=== PATIENT | male | born 1945 | race Caucasian/White ===

== ENCOUNTER 2024-04-29 16:35 | Emergency (ER) | payer MEDICARE, BC, OTHER, SELFPAY ==
[2024-04-29 16:36] VITALS: BMI 41.1
[2024-04-29 16:42] VITALS: BP 140/76
--- NOTE | 2024-04-29 16:46 | ED.GENMED ---
ED Provider Triage
<Stoney Salgado PA-C - Last Filed: 04/29/24 16:48>
-
Patient seen by provider in Triage?: Seen in Triage
Attestation: A medical screening examination has been initiated by a qualified medical provider. Based on the assessment performed at this time, it has been determined that an emergent medical condition may exist and the patient has been informed
that further medical evaluation and possible additional diagnostic testing may be needed.
HPI: 78-year-old male presenting to the ER with family who reports that patient has been having increased hallucinations over the last few days to weeks. Patient reports seeing worms at his living facility as well as on his body. Family notes that
patient has chronic diarrhea but is requesting a stool study be done as he has had worms in stool before. Patient is without any complaints at this time. Labs and stool study ordered. Will defer C. difficile study as patient's diarrhea is
chronic. No changes to medications or recent antibiotics
GENERAL: Alert , in no apparent distress
EYE: No visual abnormalities.
NECK: Trachea midline
ENT: No visible abnormalities.
LUNGS: No acute respiratory distress
NEUROLOGICAL: Alert and oriented
SKIN: Skin intact. No visible changes.
MUSCULOSKELETAL: Moving extremities normally
PSYCH: Normal and appropriate interaction.
This is a medical evaluation conducted in person to initiate diagnostic evaluation and provide initial therapeutics. Please see further documentation by the treating clinician.
History of Present Illness
<Stoney Salgado PA-C - Last Filed: 04/29/24 16:48>
General
Chief Complaint: Hallucinations
Time Seen by Provider: 04/29/24 19:21
<Nicola Lowry PA-C - Last Filed: 04/29/24 23:30>
History of Present Illness
History of Present Illness:
78-year-old male presents to the emergency department from [facility] for evaluation of suspected visual hallucinations. The patient has been seeing worms on his skin as well as throughout his nursing facility over the past 2 to 3 days. He
pointed some of these abnormalities out to his son who picked up the objects and reported that they were small fibers and/or paper. The patient provides quite significant explanations of what he is seeing and perseverates on the types of worms that
could be coming from his skin. No other residents have reported these hallucinations. He recently started on cephalexin for suspected bilateral lower extremity cellulitis but no other new meds have been started recently.
Past History
<Stoney Salgado PA-C - Last Filed: 04/29/24 16:48>
Past History
ED Past Medical History: CAD, GERD, HTN, Hypercholesterolemia, [place] and Other (sleep apnea, Pneumonia)
ED Past Surgical History: Cardiac (Stent LAD) and Cholecystectomy
Patient has exhibited threatening behavior?: No
PSI?: No
Social History
Tobacco: Non-smoker
Alcohol: None
Drug: None
Personal:
Living: alone
Employment: Employed
Family History
Family History: CAD
Review of Systems
<Nicola Lowry PA-C - Last Filed: 04/29/24 23:30>
Review of Systems
Allergies reviewed?: Yes
All Other Systems: ROS reviewed and negative except as documented in HPI and ROS
Phy Exam
<Nicola Lowry PA-C - Last Filed: 04/29/24 23:30>
Physical Exam
Physical Exam:
GEN: Well appearing, NAD, WDWN
HEENT: Oral mucosa moist, no scleral icterus
Cardiac: Regular rate and rhythm
Lung: No respiratory distress, no tachypnea
MSK: No gross deformity or injuries
Skin: Good color, no pallor or jaundice, circumferential erythema to bilateral lower extremities likely venous stasis dermatitis
Neuro: AO x3, moves all extremities freely
Psych: Calm, cooperative
Course
<Stoney Salgado PA-C - Last Filed: 04/29/24 16:48>
Orders/Labs/Results
Orders:
Orders
04/29/24 16:53
Complete Blood Count/With Diff Urgent
Comprehensive Metabolic Panel Urgent
04/29/24 18:55
Urinalysis Reflex To Culture Urgent
Date Specimen was Collected: 04/29/24
Time Specimen was Collected: 18:51
04/29/24 19:35
CT Head W/o Iv Contrast Urgent
Comment:
Reason For Exam: hallucinations
04/29/24 21:42
Ova & Parasites Giardia/Crypto AG [Giardia/Cryptosporidium Ag] Urgent
PAVEL Source: Feces/Stool
Specimen Description:
Date Specimen was Collected: 04/29/24
Time Specimen was Collected: 21:39
Abnormal Lab Results
04/29/24
16:53
MCHC 32.7 L g/dL
(33.0-37.0)
Absolute Lymphs (auto) 0.7 L 10^3/uL
(1.2-3.4)
Absolute Monos (auto) 0.7 H 10^3/uL
(0.1-0.6)
Lymphocytes % 10.8 L %
(20.5-51.1)
Monocytes % 10.5 H %
(1.7-9.3)
BUN 29 H mg/dl
(9-20)
Glucose 114 H mg/dl
(70-99)
04/29/24 16:53
04/29/24 16:53
Vital Signs
Initial and Last Documented VS:
Initial Vital Signs
Temp Pulse Resp BP Pulse Ox
97.9 F 87 16 140/76 100
04/29/24 16:42 04/29/24 16:42 04/29/24 16:42 04/29/24 16:42 04/29/24 16:42
Last Documented Vital Signs
Temp Pulse Resp BP Pulse Ox
97.9 F 87 16 141/68 99
04/29/24 16:42 04/29/24 16:42 04/29/24 16:42 04/29/24 22:38 04/29/24 22:45
<Nicola Lowry PA-C - Last Filed: 04/29/24 23:30>
Orders/Labs/Results
Orders:
Orders
04/29/24 16:53
Complete Blood Count/With Diff Urgent
Comprehensive Metabolic Panel Urgent
04/29/24 18:55
Urinalysis Reflex To Culture Urgent
Date Specimen was Collected: 04/29/24
Time Specimen was Collected: 18:51
04/29/24 19:35
CT Head W/o Iv Contrast Urgent
Comment:
Reason For Exam: hallucinations
04/29/24 21:42
Ova & Parasites Giardia/Crypto AG [Giardia/Cryptosporidium Ag] Urgent
PAVEL Source: Feces/Stool
Specimen Description:
Date Specimen was Collected: 04/29/24
Time Specimen was Collected: 21:39
Abnormal Lab Results
04/29/24
16:53
MCHC 32.7 L g/dL
(33.0-37.0)
Absolute Lymphs (auto) 0.7 L 10^3/uL
(1.2-3.4)
Absolute Monos (auto) 0.7 H 10^3/uL
(0.1-0.6)
Lymphocytes % 10.8 L %
(20.5-51.1)
Monocytes % 10.5 H %
(1.7-9.3)
BUN 29 H mg/dl
(9-20)
Glucose 114 H mg/dl
(70-99)
04/29/24 16:53
04/29/24 16:53
Vital Signs
Initial and Last Documented VS:
Initial Vital Signs
Temp Pulse Resp BP Pulse Ox
97.9 F 87 16 140/76 100
04/29/24 16:42 04/29/24 16:42 04/29/24 16:42 04/29/24 16:42 04/29/24 16:42
Last Documented Vital Signs
Temp Pulse Resp BP Pulse Ox
97.9 F 87 16 141/68 99
04/29/24 16:42 04/29/24 16:42 04/29/24 16:42 04/29/24 22:38 04/29/24 22:45
<Nicola Lowry PA-C - Last Filed: 04/29/24 23:30>
MDM/Problems Addressed
MDM/Problems Addressed:
Patient's hallucinations are likely behavioral related to cognitive decline. He is quite insistent that he has worms in his stool and he did provide a stool specimen that has no visible worms by inspection but will send for ova and parasite for
confirmation. Advised outpatient primary care follow-up to discuss medication therapy if symptoms worsen
<Nicola Lowry PA-C - Last Filed: 04/29/24 23:30>
*Critical Care Note
Total Time (30-74mins, 75-104mins- exclusive of procedures): Not Applicable
ED Attending Note
<Stoney Salgado PA-C - Last Filed: 04/29/24 16:48>
-
Portions of this chart may have been created with voice recognition software.� Occasional wrong word or��sound alike� substitutions may have occurred due to the inherent limitations of voice recognition software.
Discharge Plan
Departure
Patient Disposition: Home (Routine Discharge)
Date of Disposition: 04/29/24
Time of Disposition: 22:21
Patient with high blood pressure during this ER visit?: No
Discharge Problem:
Hallucination, visual
Prescriptions:
No Action
rosuvastatin 20 MG tablet
20 mg PO HS
sertraline 50 MG tablet
75 mg PO DAILY
ezetimibe 10 MG tablet
10 mg PO DAILY
ascorbic acid (vitamin C) [Vitamin C] 500 MG tablet
500 mg PO DAILY
triamcinolone acetonide 0.1 % Cream
1 applic TOPICAL BID PRN (Reason: irritation) Qty: 0
Rx Instructions:
apply to leg rash
omega 9-ohl-hma-fish oil [Fish Oil] 1,000 mg (120 mg-180 mg) Capsule
1 cap PO DAILY
multivitamin Tablet
1 tab PO DAILY
metoprolol succinate 100 mg Tablet Extended Release 24 Hr
100 mg PO DAILY
cholecalciferol (vitamin D3) [Vitamin D3] 50 mcg (2,000 unit) Capsule
50 mcg PO DAILY
vitamin E
180 mg PO DAILY
acetaminophen [Acetaminophen Extra Strength] 500 mg tablet
1,000 mg PO Q6H
aspirin 81 mg Tablet,Delayed Release (Dr/Ec)
81 mg PO DAILY
loperamide 2 mg Tablet
2 - 4 mg PO QID PRN (Reason: diarrhea)
potassium chloride 20 mEq tablet,ER particles/crystals
20 meq PO DAILY
furosemide 80 mg tablet
80 mg PO DAILY
Eucerin Cream
1 applic TOPICAL DAILY
Rx Instructions:
apply to legs
ondansetron 4 mg tablet,disintegrating
4 mg PO Q8H PRN (Reason: nausea and vomiting) Qty: 10 0RF
Referrals:
Sanjeev Whittington MD [Family Provider] -
Activity Restrictions/Additional Instructions:
Stool testing with result in 1-2 days
Contact your primary care doctor to discuss medications if symptoms worsen
Interventions
Interventions:
*Risk Screen - Suicide Last Done: 04/29/24 16:45
*General Assessment Last Done: 04/29/24 20:37
*Neglect/Abuse Screening Last Done: 04/29/24 16:45
*ED COVID-19 Vaccine History Last Done: 04/29/24 20:37
*Nursing Disposition Last Done: 04/29/24 23:07
ED- Neurological Assessment Last Done: 04/29/24 20:38
ED-Psychological Assessment Last Done: 04/29/24 20:38
ED-Suicide Risk Assessment Last Done: 04/29/24 20:38
Discharge Date and Time
Discharge Date/Time: 04/29/24 23:07
Print Language: PANAMANIAN
[2024-04-29 17:06] LABS: % Basophils 0.4 % (0-2); % Eosinophils 3.4 % (0-6); % Immature Granulocytes 0.1 % (0-0.5); % Lymphocytes 10.8 % (20.5-51.1); % Monocytes 10.5 % (1.7-9.3); % Neutrophils 74.8 % (42.2-75.2); Absolute Eosinophils 0.2 10^3/uL (0-0.7); Absolute Lymphocytes 0.7 10^3/uL (1.2-3.4); Absolute Monocytes 0.7 10^3/uL (0.1-0.6); Hematocrit 46.8 % (39.0-52.0); Hemoglobin 15.3 g/dL (13.0-18.0); Mean Corp Hgb Conc. 32.7 g/dL (33.0-37.0); Mean Corpuscular Hgb 28.7 pg (27.0-31.0); Mean Corpuscular Volume 87.8 fL (80.0-94.0); Nucleated Red Blood Cells % 0 % (-); Platelet Count 185 10^3/uL (130-400); Red Blood Cell Count 5.33 10^6/uL (4.70-6.10); Red Cell Dist. Width 13.2 % (11.5-14.5); White Blood Cell Count 6.7 10^3/uL (4.8-10.8)
[2024-04-29 17:16] LABS: ALT (SGPT) 37 U/L (0-50); AST (SGOT) 39 U/L (17-59); Albumin 4.2 g/dl (3.5-5.0); Alkaline Phosphatase 108 U/L (38-126); Blood Urea Nitrogen 29 mg/dl (9-20); Calcium 9.5 mg/dl (8.4-10.2); Carbon Dioxide 29 mmol/L (22-30); Chloride 103 mmol/L (98-107); Glucose 114 mg/dl (70-99); Potassium 4.3 mmol/L (3.5-5.1); Sodium 143 mmol/L (135-145); Total Bilirubin 0.3 mg/dl (0.2-1.3); Total Protein 7.1 g/dl (6.3-8.2); eGFR > 60.00
[2024-04-29 19:00] LABS: Urine Albumin Negative (Neg - Trace); Urine Bilirubin Negative (Negative); Urine Character Clear (Clear); Urine Color Yellow; Urine Glucose Negative (Negative); Urine Ketone Negative (Negative); Urine Leukocyte Negative (Negative); Urine Nitrite Negative (Negative); Urine Occult Blood Negative (Negative); Urine Specific Gravity 1.015 (<1.030); Urine Urobilinogen Negative (Neg - 1+)
[2024-04-29 20:36] VITALS: BP 118/52
[2024-04-29 21:00] VITALS: BP 139/62
[2024-04-29 22:38] VITALS: BP 141/68
== END 2024-04-29 23:07 | disposition home or self-care (01) ==
LOC: EMR 16:35
PROVIDERS: Physician Assistant Medical; EMERGENCY PHYSICIAN Student in an Organized Health Care Education/Training Program; FAMILY PHYSICIAN Internal Medicine
DX: R44.1 Visual hallucinations (principal); I25.10 Atherosclerotic heart disease of native coronary artery without angina pectoris; K21.9 Gastro-esophageal reflux disease without esophagitis; I10 Essential (primary) hypertension; E78.00 Pure hypercholesterolemia, unspecified; I25.2 Old myocardial infarction; G47.30 Sleep apnea, unspecified; Z82.49 Family history of ischemic heart disease and other diseases of the circulatory system; Z90.49 Acquired absence of other specified parts of digestive tract; Z95.5 Presence of coronary angioplasty implant and graft
CPT/HCPCS: 99284; 70450; 80053; 81003; 85025; 87328; 87329

== ENCOUNTER 2024-05-27 14:13 | Inpatient (IN) | payer MEDICARE, BC, OTHER, SELFPAY ==
[2024-05-27 08:58] VITALS: BP 150/76
--- NOTE | 2024-05-27 09:37 | PHANOTE ---
Addendum entered by Josi Mitchell 05/27/24 09:44:
receive fax from residential but pages 2,6,8,12,14,16 were blank pages.
Original Note:
[facility] not- called residential at [phone], for patient paperwork, patient transfer from doctor office to dher with just page 2 missing pages 1 and 3 gave fax number residential.
[2024-05-27 09:40] VITALS: BMI 41.0
[2024-05-27 09:52] LABS: % Basophils 0.3 % (0-2); % Eosinophils 1.5 % (0-6); % Immature Granulocytes 0.2 % (0-0.5); % Lymphocytes 13.3 % (20.5-51.1); % Monocytes 13.5 % (1.7-9.3); % Neutrophils 71.2 % (42.2-75.2); Absolute Eosinophils 0.1 10^3/uL (0-0.7); Absolute Lymphocytes 0.8 10^3/uL (1.2-3.4); Absolute Monocytes 0.8 10^3/uL (0.1-0.6); Absolute Neutrophils 4.3 10^3/uL (1.4-6.5); Hematocrit 43.2 % (39.0-52.0); Hemoglobin 14.7 g/dL (13.0-18.0); Mean Corpuscular Hgb 30.1 pg (27.0-31.0); Mean Corpuscular Volume 88.5 fL (80.0-94.0); Mean Platelet Volume 10.2 fL (7.4-10.4); Nucleated Red Blood Cells % 0 % (-); Platelet Count 183 10^3/uL (130-400); Red Blood Cell Count 4.88 10^6/uL (4.70-6.10); Red Cell Dist. Width 13.2 % (11.5-14.5)
[2024-05-27] MEDS: VANCOCIN 540 MG IV (10:04)
[2024-05-27 10:28] LABS: ALT (SGPT) 29 U/L (0-50); AST (SGOT) 44 U/L (17-59); Albumin 3.6 g/dl (3.5-5.0); Alkaline Phosphatase 73 U/L (38-126); Blood Urea Nitrogen 27 mg/dl (9-20); Calcium 9.2 mg/dl (8.4-10.2); Carbon Dioxide 27 mmol/L (22-30); Chloride 102 mmol/L (98-107); Estimated Creatinine Clearance 70 ml/min; Glucose 109 mg/dl (70-99); Potassium 3.6 mmol/L (3.5-5.1); Sodium 140 mmol/L (135-145); Total Bilirubin 0.7 mg/dl (0.2-1.3); Total Protein 6.5 g/dl (6.3-8.2); eGFR > 60.00
--- NOTE | 2024-05-27 10:31 | ED.GENMED ---
History of Present Illness
General
Chief Complaint: Skin Problem
Source: patient and family (daughter)
Exam Limitations: none
Time Seen by Provider: 05/27/24 09:13
History of Present Illness
History of Present Illness:
78-year-old male who presents from wound care for evaluation of cellulitis. The patient has recently been on Levaquin and prior to that was on a different antibiotic the family is unaware of. Patient does report progressive redness to the legs.
He does have lymphedema and is supposed to see a specialist. His right lower leg now has an open wound that is somewhat new as per the daughter. Patient denies fevers. He does report increasing swelling.
Past History
Past History
ED Past Medical History: CAD, GERD, HTN, Hypercholesterolemia, [place] and Other (sleep apnea, Pneumonia)
ED Past Surgical History: Cardiac (Stent LAD) and Cholecystectomy
Patient has exhibited threatening behavior?: No
PSI?: No
Social History
Tobacco: Non-smoker
Alcohol: None
Drug: None
Personal:
Living: alone
Employment: Employed
Family History
Family History: CAD
Phy Exam
Physical Exam
Physical Exam:
CONSTITUTIONAL Vital signs reviewed, Patient alert and oriented to person, place and time. Obese
HEAD atraumatic, normocephalic.
EYES eyelids normal to inspection, Extraocular muscles intact, Conjunctiva normal, Sclera normal.
NECK normal range of motion, Trachea midline, no jugular venous distention.
RESP no respiratory distress
BACK No obvious deformities
UPPER EXTREMITY Gross Range of motion normal, gross motor strength normal
LOWER EXTREMITY Gross range of motion normal, Gross motor strength normal, marked edema noted bilaterally with chronic venous stasis changes noted bilaterally. There is excoriation of the skin to the right lower extremity. There is a diffuse
redness from the toes almost to the hips bilaterally with increased warmth throughout the thigh bilaterally. There is no crepitus.
NEURO Speech normal, No focal motor deficits include, Jose A coma scale 15, Memory normal, Cranial Nerves intact to screening exam.
SKIN Skin warm, dry, and normal in color.
PSYCHIATRIC Patient oriented to person place and time, Normal affect.
Course
Orders/Labs/Results
Orders:
Orders
05/27/24 09:39
Complete Blood Count/With Diff Urgent
Blood Culture Q30M
PAVEL Source: Blood/Venous
Specimen Description:
05/27/24 09:49
Vancomycin [Vancocin] 2,000 mg 0.9% Sodium Chloride 500 ml [Nss] 500 ml IV NOW
05/27/24 10:01
Comprehensive Metabolic Panel Urgent
Blood Culture Q30M
PAVEL Source: Blood/Venous
Specimen Description:
Abnormal Lab Results
05/27/24 05/27/24
09:39 10:01
Absolute Lymphs (auto) 0.8 L 10^3/uL
(1.2-3.4)
Absolute Monos (auto) 0.8 H 10^3/uL
(0.1-0.6)
Lymphocytes % 13.3 L %
(20.5-51.1)
Monocytes % 13.5 H %
(1.7-9.3)
BUN 27 H mg/dl
(9-20)
Glucose 109 H mg/dl
(70-99)
05/27/24 09:39
05/27/24 10:01
Vital Signs
Initial and Last Documented VS:
Initial Vital Signs
Temp Pulse Resp BP Pulse Ox
99.0 F 71 18 150/76 96
05/27/24 08:58 05/27/24 08:58 05/27/24 08:58 05/27/24 08:58 05/27/24 08:58
Last Documented Vital Signs
Temp Pulse Resp BP Pulse Ox
99.0 F 71 18 150/76 96
05/27/24 08:58 05/27/24 08:58 05/27/24 08:58 05/27/24 08:58 05/27/24 08:58
MDM/Problems Addressed
MDM/Problems Addressed:
Acute severe cellulitis, chronic lymphedema, lower extremity wound, chronic obesity
*Pulse Oximetry
Patient hypoxic: no
*Critical Care Note
Total Time (30-74mins, 75-104mins- exclusive of procedures): Not Applicable
Data Reviewed
Source: patient and family
Prescriptions/Medications Considered But Not Given:
Considered gram-negative coverage but I suspect gram-positive coverage is sufficient given skin infection
Patient Management
Discussion with other providers: Hospitalist
Escalation/DeEscalation of care consider admission/obs:
Suspect cellulitis given the open wound as he has redness up through his thighs. There is a component of edema that may be contributing to the redness. Cover with IV antibiotics and admit. Patient has been on Levaquin as an outpatient
ED Attending Note
-
Portions of this chart may have been created with voice recognition software.� Occasional wrong word or��sound alike� substitutions may have occurred due to the inherent limitations of voice recognition software.
Discharge Plan
Departure
Patient Disposition: Admit
Date of Disposition: 05/27/24
Time of Disposition: 10:39
Admit to: Med/Surg
Presentation/result/management discussed w/ accepting MD/DO: Hospitalist
Discharge Problem:
Cellulitis, Lymphedema
Prescriptions:
No Action
rosuvastatin 20 MG tablet
20 mg PO DAILY
sertraline 50 MG tablet
75 mg PO DAILY
ezetimibe 10 MG tablet
10 mg PO DAILY
triamcinolone acetonide 0.1 % Cream
1 applic TOPICAL BID Qty: 0
Rx Instructions:
apply to leg rash
multivitamin Tablet
1 tab PO DAILY
metoprolol succinate 100 mg Tablet Extended Release 24 Hr
100 mg PO DAILY
cholecalciferol (vitamin D3) [Vitamin D3] 50 mcg (2,000 unit) Capsule
50 mcg PO DAILY
acetaminophen [Acetaminophen Extra Strength] 500 mg tablet
1,000 mg PO Q6H
aspirin 81 mg Tablet,Delayed Release (Dr/Ec)
81 mg PO DAILY
potassium chloride 20 mEq tablet,ER particles/crystals
20 meq PO DAILY
furosemide 80 mg tablet
80 mg PO UD
Rx Instructions:
take 80mg bid for 5 days then 80mg daily there after
omeprazole 40 mg Capsule,Delayed Release(Dr/Ec)
40 mg PO DAILY
Benefiber (guar gum) Packet
1 tbsp PO BID
gabapentin 300 mg Capsule
300 mg PO HS
levofloxacin 500 mg Tablet
500 mg PO DAILY
Rx Instructions:
for 10 days starting 05/23/24
Minerin Creme Cream
1 applic TOPICAL BID
ondansetron 4 mg tablet,disintegrating
8 mg PO Q8HPRN PRN (Reason: nausea)
Referrals:
Sanjeev Whittington MD [Family Provider] -
Interventions
Interventions:
*Risk Screen - Suicide Last Done: 05/27/24 08:58
*General Assessment Last Done: 05/27/24 08:58
*Neglect/Abuse Screening Last Done: 05/27/24 08:58
ED-Skin Assessment Last Done: 05/27/24 10:15
Discharge Date and Time
Print Language: LAO
--- NOTE | 2024-05-27 13:57 | HPS.HSE ---
Family Physician
-
Family Physician: Henrry Whittington
Chief Complaint
-
Leg wound
History of Present Illness
78-year-old male extensive past medical history presenting from wound care center here with right lower extremity worsening wound. Patient was being treated with Levaquin as outpatient via primary doctor. Patient form [facility]. Per the
paperwork, patient was on Keflex prior to Levaquin. Patient does states progressive erythema worsen bilateral lower extremity worse on the right lower leg. Stated erythema has gotten worse in the last 2 weeks. Patient denies any fevers or
chills. Patient does state [facility]. No family member at bedside. In the ER patient with WBC count of 6 and stable hemoglobin of 14.7. BMP with creatinine 1.2. Received 2 g of vancomycin. On further discussion with
patient daughter over the phone. Patient with chronic lymphedema. However recently right lower extremity wound has gotten worse. Patient was seen earlier at the wound care center and was recommended come into the ER for antibiotics and wound
management.
Medical History
Past Medical History
Past Medical History: Reports Other
Additional Past Medical History:
CAD
Primary hypertension
Hyperlipidemia
Chronic bilateral lower extremity stasis/lymphedema
Mood disorder
Suspected cognitive disorder/suspected dementia
Urinary incontinence
GERD
CKD stage IIIa
Past Surgical History: Reports Cardiac (LAD stent), Cholecystectomy and Orthopedic (Total replacement of left shoulder)
Social History
Unable to obtain full social history at this time due to: Dementia
Family History
Family History: Not pertinent
Allergies / Home Medications
Allergies reflects when Allergies were last updated in [employer].
Home Medications with original date entered in [employer]
Allergy/Medication List:
Allergies
Allergy/AdvReac Type Severity Reaction Status Date / Time
lisinopril Allergy Rash Verified 05/27/24 08:58
orange juice [Limestone Juice] Allergy Rash Verified 05/27/24 08:58
Home Medications
rosuvastatin 20 mg tablet 20 mg PO DAILY High cholesterol 05/19/13
ezetimibe 10 mg tablet 10 mg PO DAILY High cholesterol 11/23/20
sertraline 50 mg tablet 75 mg PO DAILY mental health 11/23/20
triamcinolone acetonide 0.1 % topical cream 1 applic topical BID lower extremites ##0 02/28/22
acetaminophen 500 mg tablet (Acetaminophen Extra Strength) 1,000 mg PO Q6H Supplement 04/18/22
aspirin 81 mg tablet,delayed release 81 mg PO DAILY Blood clot prevention/tx 04/18/22
cholecalciferol (vitamin D3) 50 mcg (2,000 unit) capsule (Vitamin D3) 50 mcg PO DAILY Supplement 04/18/22
metoprolol succinate 100 mg tablet,extended release 24 hr 100 mg PO DAILY Blood pressure 04/18/22
multivitamin 1 tab PO DAILY Supplement 04/18/22
furosemide 80 mg tablet 80 mg PO UD 01/09/23
potassium chloride 20 mEq tablet,extended release(part/cryst) 20 meq PO DAILY 01/09/23
gabapentin 300 mg capsule 300 mg PO HS 05/27/24
guar gum 1 tbsp PO BID 05/27/24
lanolin alcohols-mineral oil-w.petrolatum-ceresin topical cream (Minerin Creme topical) 1 applic topical BID b/l lower legs 05/27/24
levofloxacin 500 mg tablet 500 mg PO DAILY 05/27/24
omeprazole 40 mg capsule,delayed release 40 mg PO DAILY 05/27/24
ondansetron 4 mg disintegrating tablet 8 mg PO Q8HPRN PRN nausea 05/27/24
Review of Systems
-
Unable to obtain full review of systems at this time due to: Dementia
Physical Exam
Vital Signs
Vital Signs
Temp Pulse Resp BP Pulse Ox
99.0 F 71 18 150/76 96
05/27/24 08:58 05/27/24 08:58 05/27/24 08:58 05/27/24 08:58 05/27/24 08:58
Physical Exam
General: Well Developed, Well Nourished and No Apparent Distress
HEENT: NormoCephalic, Moist mucous membranes and Atraumatic
Respiratory: Clear
Cardiac: S1/S2 and Regular Rhythm; No Murmur or Rub
GI: Soft, Non Tender, Non Distended and Normal Bowel Sounds; No Organomegaly
Rectal: Deferred by Provider
Musculoskeletal: No Clubbing, No Cyanosis, Edema, Left Lower Extremity and Edema, Right Lower Extremity (Open venous stasis wound with drainage severe erythema)
Skin: No Rash
Neuro: Awake and Nonfocal/grossly intact
Psych: Calm and Apparent Dementia
Laboratory Results
-
05/27/24 09:39
05/27/24 10:01
Laboratory Results
Total Bilirubin 0.7 mg/dl (0.2-1.3) 05/27/24 10:01
AST 44 U/L (17-59) 05/27/24 10:01
ALT 29 U/L (0-50) 05/27/24 10:01
Alkaline Phosphatase 73 U/L (38-126) 05/27/24 10:01
Impression/Plan
-
#Bilateral lower extremity venous stasis/lymphedema
#Suspected right lower extremity cellulitis
Check lower extremity venous Doppler
Start patient on IV Keflex
Start patient on IV 60 mg of Lasix to reduce edema which should help alleviate suspected infection
Await blood culture results
Will ask ID for input
#Primary hypertension
Continue with metoprolol
On IV diuretics
#Hyperlipidemia
Continue with statin
#CAD status post stent
Continue with aspirin and statin and beta-hardeep
#Morbid obesity due to excess calories
Suspected Cognitive impairment
ADHD
Mood disorder
Continue sertraline
DVT prophylaxis Lovenox
Full code
update daughter over the phone in details
I spent a total of 78 minutes with the patient or on the floor. More than 50% of this time involved counseling and coordination of care.
[2024-05-27 14:17] VITALS: BP 117/74
--- NOTE | 2024-05-27 15:50 | WOUNDNOTE ---
[facility] (L ANTERIOR LATERAL; R MEDIAL)
--- NOTE | 2024-05-27 15:50 | WOUNDNOTE ---
RLE (WITH PHOTO FLASH)
--- NOTE | 2024-05-27 15:51 | WOUNDNOTE ---
[facility] RN note: Patient admitted with cellulitis, venous stasis.
See H&P for complete history.
PMH: lymphedema, CAD, HTN, [place], sleep apnea, cardiac stent, cholecystectomy, obesity, leg wounds.
Wound Location and type/assessment: Patient admitted with: dermal RLE venous stasis wounds. +LE edema and diffuse erythema Le's (R>L). Stage 2 L medial buttocks pressure injuries. +3 RLE edema, +2LLE edema. +Pedal pulses.
Appetite: good.
Pressure redistribution devices in place: [employer] Accumax. Patient ambulates with supervision.
Plan: RLE dressing applied with help from RN
Will confirm orders with hospitalist and update nurse.
Updated care plan and will follow as needed.
Note to case management of equipment requested for discharge:
Recommend follow up at wound care center upon discharge.
--- NOTE | 2024-05-27 16:00 | WOUNDNOTE ---
[facility] RN note: Patient admitted with cellulitis, venous stasis. Patient lives at [facility] (personal care?). Son with patient. Patient sent to ED today from [facility].
See H&P for complete history.
PMH: lymphedema, CAD, HTN, [place], sleep apnea, cardiac stent, cholecystectomy, obesity, leg wounds.
Wound Location and type/assessment: Patient admitted with: dermal RLE venous stasis wounds almost circumferential. +LE edema and diffuse erythema Le's (R>L). Stage 2 L medial buttocks pressure injuries. +3 RLE edema, +2LLE edema. +Palpable pedal
pulses.
Appetite: good.
Pressure redistribution devices in place: [employer] Accumax. Patient ambulates with supervision. He turns with assistance in bed.
Plan: RLE dressing and knee high Chaim wrap and size G tubigrips applied, bariatric air chair cushion placed under patient's buttocks with help from RN Walker. Heels off bed with pillows. Instructed patient pressure injury prevention measures.
Confirmed orders including knee high compression with Dr. Sterling. Defer to physician if LE venous Doppler indicated.
Updated care plan and will follow as needed.
Note to case management requested for discharge: VN if returns to assisted living when discharged.
Recommend follow up at wound care center upon discharge.
[2024-05-27 16:18] VITALS: BP 114/77
[2024-05-27] MEDS: TYLENOL 1000 MG PO ×2 (16:42→21:25)
[2024-05-27] MEDS: ANCEF 10 IV (16:43)
[2024-05-27] MEDS: LOVENOX 40 MG SC (18:37)
[2024-05-27] MEDS: NEURONTIN 300 MG PO (21:28)
[2024-05-27 23:00] VITALS: BP 111/52
[2024-05-28] MEDS: ANCEF 10 IV ×4 (00:32→23:24)
[2024-05-28] MEDS: FLUSH (NSS) 1 FLUSH IV ×2 (00:32→23:25)
[2024-05-28 03:25] VITALS: BMI 40.7
[2024-05-28] MEDS: TYLENOL 1000 MG PO ×4 (04:30→21:35)
[2024-05-28 07:02] LABS: Blood Urea Nitrogen 24 mg/dl (9-20); Calcium 8.9 mg/dl (8.4-10.2); Carbon Dioxide 27 mmol/L (22-30); Chloride 104 mmol/L (98-107); Estimated Creatinine Clearance 83 ml/min; Glucose 113 mg/dl (70-99); Potassium 3.6 mmol/L (3.5-5.1); Sodium 141 mmol/L (135-145); eGFR > 60.00
[2024-05-28 07:10] VITALS: BP 126/64
[2024-05-28] MEDS: LASIX 60 MG IV (08:44)
[2024-05-28] MEDS: ZOLOFT 75 MG PO (08:46)
[2024-05-28] MEDS: PROTONIX 40 MG PO (08:47)
[2024-05-28] MEDS: ASPIR LOW (ENTERIC COATED) 81 MG PO (08:48)
[2024-05-28] MEDS: VITAMIN D3 (cholecalciferol) 50 MCG PO (08:48)
[2024-05-28] MEDS: ZETIA 10 MG PO (08:48)
[2024-05-28] MEDS: TOPROL XL 100 MG PO (08:48)
[2024-05-28] MEDS: KCL 20 MEQ PO (08:49)
[2024-05-28] MEDS: THERAGRAN 1 TABLET PO (08:49)
[2024-05-28] MEDS: CRESTOR 20 MG PO (08:49)
[2024-05-28] MEDS: HYDROPHOR 1 APPLIC TOPICAL (08:50)
--- NOTE | 2024-05-28 12:21 | W.PN.HOSP.TC ---
Today's Communication/Plan
-
IV lasix
IV abx
wound care
ID eval
elevated LE
Consider TTE if here on thursday
Assessment / Plan
Assessment / Plan
General: Well Developed, Well Nourished and No Apparent Distress
HEENT: NormoCephalic, Moist mucous membranes and Atraumatic
Respiratory: Clear
Cardiac: S1/S2 and Regular Rhythm; No Murmur or Rub
GI: Soft, Non Tender, Non Distended and Normal Bowel Sounds; No Organomegaly
Rectal: Deferred by Provider
Musculoskeletal: No Clubbing, No Cyanosis, Edema, Left Lower Extremity and Edema, Right Lower Extremity (Open venous stasis wound with drainage severe erythema)
Skin: No Rash
Neuro: Awake and Nonfocal/grossly intact
Psych: Calm and Apparent Dementia
#Bilateral lower extremity venous stasis/lymphedema
#Suspected right lower extremity cellulitis with failed OP antibiotics
Check lower extremity venous Doppler-negative
Started patient on IV Keflex
Started patient on IV 60 mg of Lasix to reduce edema which should help alleviate suspected infection
Await blood culture results
ID eval
#Primary hypertension
Continue with metoprolol
On IV diuretics
#CKD unknown stage
-trend cr with diuretics
#Hyperlipidemia
Continue with statin
#CAD status post stent
Continue with aspirin and statin and beta-hardeep
#Morbid obesity due to excess calories
Suspected Cognitive impairment
ADHD
Mood disorder
Continue sertraline
DVT prophylaxis Lovenox
Full code
update daughter over the phone in details on admission
Anticipated Discharge: > 48 hours
Subjective/Interval History
-
Date of Service: May 28, 2024
More talkative today
Edema improving slowly
Objective Data
-
Labs:
Laboratory Results
05/28/24
06:29
Sodium 141
Potassium 3.6
Chloride 104
Carbon Dioxide 27
BUN 24 H
Creatinine 1.0
Glucose 113 H
Calcium 8.9
Vital Signs:
Vital Signs
Temp Pulse Resp BP Pulse Ox
97.7 F 78 16 126/64 95
05/28/24 07:10 05/28/24 07:10 05/28/24 07:10 05/28/24 07:10 05/28/24 07:10
I&O
05/27/24 05/28/24 05/29/24
06:59 06:59 06:59
Intake Total 120 / 120
Balance 120 / 120
--- NOTE | 2024-05-28 14:15 | CON.ID ---
Consultation
-
Date/Time Consultation Requested: 05/27/24 15:22
Date/Time Consultation Performed: 05/28/24 14:17
Requesting Provider: Dr Murillo
Performing Provider: Dr Sterling
Reason for Consultation: Cellulitis
Chief Complaint / Past History
Chief Complaint
cellulitis
History of Present Illness
Mr Zimmer is a 78 year old male with history of chronic lymphedema of the bilateral lower extremities, class III obesity who presented here yesterday for increasing erythema and pain of the Right lower extremity in particular. Patient has chronic,
uncontrolled lymphedema and a superficial erosion of the R distal leg. He was initially prescribed keflex without improvement, then levaquin, then referred here. He is taking lasix. NO fevers or chills.
Since arrival here he has been afebrile, bp stable, wbc 6, hgb 14, plt 183, no L shift, cr 1.2 now 1.0, 05/27 vascular US: no dvt, started on cefazolin, wound care and compression. ID is consulted for assistance with management.
Past History
Additional Past Medical History:
CAD
Primary hypertension
Hyperlipidemia
Chronic bilateral lower extremity stasis/lymphedema
Mood disorder
Suspected cognitive disorder/suspected dementia
Urinary incontinence
GERD
CKD stage IIIa
Additional Past Surgical History:
Reports Cardiac (LAD stent), Cholecystectomy and Orthopedic (Total replacement of left shoulder)
Allergy History:
lisinopril Allergy (Verified 05/27/24 08:58)
Rash
orange juice [[place] Juice] Allergy (Verified 05/27/24 08:58)
Rash
Medications Reviewed: Yes
Social History
Personal: Single
Living: Assisted Living
Employment: Not Employed
Family History
Family History: Not Pertinent
Review of Systems
Review of Systems
General: Negative Fever or Chills
All systems: All other systems were reviewed and were negative
Vital Signs
Temp Pulse Resp BP Pulse Ox
97.7 F 78 16 126/64 95
05/28/24 07:10 05/28/24 07:10 05/28/24 07:10 05/28/24 07:10 05/28/24 07:10
Physical Exam
Physical Exam
Constitutional: No Acute Distress
Cardiovascular: Regular Rate and S1/S2; Negative Murmur or Rub
Pulmonary: Clear and Symmetric; Negative Wheezes, Rales or Rhonchi
Gastrointestinal: Soft, Non Tender, Non Distended and Normal Bowel Sounds
Extremities: Other (bilateral lower extremity chronic lichenification; wound of the distal RLE superficial - nonpurulent)
Skin: Warm and Dry; Negative Rash or Jaundice
Lab / Diagnostic Study Results
05/27/24 09:39
05/28/24 06:29
Abs Immat Gran (auto) 0.0 10^3/uL (0-0.05) 05/27/24 09:39
Absolute Neuts (auto) 4.3 10^3/uL (1.4-6.5) 05/27/24 09:39
Absolute Lymphs (auto) 0.8 10^3/uL (1.2-3.4) L 05/27/24 09:39
Absolute Monos (auto) 0.8 10^3/uL (0.1-0.6) H 05/27/24 09:39
Absolute Basos (auto) 0.0 10^3/uL (0-0.2) 05/27/24 09:39
Immature Gran % 0.2 % (0-0.5) 05/27/24 09:39
Neutrophils % 71.2 % (42.2-75.2) 05/27/24 09:39
Lymphocytes % 13.3 % (20.5-51.1) L 05/27/24 09:39
Monocytes % 13.5 % (1.7-9.3) H 05/27/24 09:39
Eosinophils % 1.5 % (0-6) 05/27/24 09:39
Basophils % 0.3 % (0-2) 05/27/24 09:39
Microbiology Results
Micro:
05/27/24 10:01 Blood Culture - Preliminary
Blood/Venous No Growth in 24 hours- Final report to follow
05/27/24 09:39 Blood Culture - Preliminary
Blood/Venous No Growth in 24 hours- Final report to follow
05/27/24 18:25 MRSA Screen - Pending
Nose
Assessment / Plan
Nonpurulent Cellulitis
Chronic Venous stasis dermatitis
Chronic uncontrolled lymphedema
Class III Obesity
- blood cultures x2 in progress
- mrsa screen in progress
- agree with cefazolin, increased dose to 2 gm IV q6 hours given BMI >40
- compression and elevation while awake and not eating - as important as the antibiotics
follow clinically
[2024-05-28 15:16] VITALS: BP 133/65
[2024-05-28] MEDS: LOVENOX 40 MG SC (17:01)
[2024-05-28] MEDS: NEURONTIN 300 MG PO (21:35)
[2024-05-28 23:24] VITALS: BP 133/57
[2024-05-29] MEDS: TYLENOL 1000 MG PO ×4 (05:33→22:52)
[2024-05-29] MEDS: ANCEF 10 IV ×4 (05:33→22:52)
[2024-05-29] MEDS: FLUSH (NSS) 1 FLUSH IV (05:34)
[2024-05-29 06:00] VITALS: BMI 39.4
[2024-05-29 07:22] LABS: Blood Urea Nitrogen 24 mg/dl (9-20); Calcium 8.8 mg/dl (8.4-10.2); Carbon Dioxide 26 mmol/L (22-30); Chloride 104 mmol/L (98-107); Estimated Creatinine Clearance 91 ml/min; Glucose 108 mg/dl (70-99); Potassium 3.9 mmol/L (3.5-5.1); Sodium 143 mmol/L (135-145); eGFR > 60.00
[2024-05-29 07:50] VITALS: BP 142/74
[2024-05-29] MEDS: ASPIR LOW (ENTERIC COATED) 81 MG PO (09:29)
[2024-05-29] MEDS: PROTONIX 40 MG PO (09:29)
[2024-05-29] MEDS: KCL 20 MEQ PO (09:30)
[2024-05-29] MEDS: ZOLOFT 75 MG PO (09:30)
[2024-05-29] MEDS: ZETIA 10 MG PO (09:32)
--- NOTE | 2024-05-29 10:23 | W.PN.HOSP.TC ---
Today's Communication/Plan
-
IV lasix
IV abx
ECHO in am
wound care
elevate LE
Assessment / Plan
Assessment / Plan
General: Well Developed, Well Nourished and No Apparent Distress
HEENT: NormoCephalic, Moist mucous membranes and Atraumatic
Respiratory: Clear
Cardiac: S1/S2 and Regular Rhythm; No Murmur or Rub
GI: Soft, Non Tender, Non Distended and Normal Bowel Sounds; No Organomegaly
Rectal: Deferred by Provider
Musculoskeletal: No Clubbing, No Cyanosis, Edema, Left Lower Extremity and Edema, Right Lower Extremity (Open venous stasis wound with drainage severe erythema)
Skin: No Rash
Neuro: Awake and Nonfocal/grossly intact
Psych: Calm and Apparent Dementia
#Bilateral lower extremity venous stasis/lymphedema
#Suspected right lower extremity cellulitis with failed OP antibiotics
Check lower extremity venous Doppler-negative
Started patient on IV Keflex and dose adjusted per ID. MRSA positive
Started patient on IV 60 mg of Lasix to reduce edema-improving. losing weight.
Await blood culture results-negative so far
wound care and leg elevation as much as possible
ID eval
#Chronic lyphmedema with signfiicant swelling
-Check ECHO in am
#Primary hypertension
Continue with metoprolol
On IV diuretics
#CKD unknown stage
-trend cr with diuretics
#Hyperlipidemia
Continue with statin
#CAD status post stent
Continue with aspirin and statin and beta-hardeep
#Morbid obesity due to excess calories
Suspected Cognitive impairment
ADHD
Mood disorder
Continue sertraline
DVT prophylaxis Lovenox
Full code
Anticipated Discharge: > 48 hours
Subjective/Interval History
-
Date of Service: May 29, 2024
improvement in edema
Objective Data
-
Labs:
Laboratory Results
05/29/24
06:19
Sodium 143
Potassium 3.9
Chloride 104
Carbon Dioxide 26
BUN 24 H
Creatinine 0.9
Glucose 108 H
Calcium 8.8
Vital Signs:
Vital Signs
Temp Pulse Resp BP Pulse Ox
98.2 F 76 16 142/74 96
05/29/24 07:50 05/29/24 07:50 05/29/24 07:50 05/29/24 07:50 05/29/24 07:50
I&O
05/28/24 05/29/24 05/30/24
06:59 06:59 06:59
Intake Total 120 / 120 600 / 600
Balance 120 / 120 600 / 600
Data Reviewed
-
Total Time Spent with Patient (in minutes): 55
[2024-05-29] MEDS: THERAGRAN 1 TABLET PO (10:28)
[2024-05-29] MEDS: LASIX 60 MG IV (10:28)
[2024-05-29] MEDS: CRESTOR 20 MG PO (10:28)
[2024-05-29] MEDS: TOPROL XL 100 MG PO (10:28)
[2024-05-29] MEDS: VITAMIN D3 (cholecalciferol) 50 MCG PO (10:28)
[2024-05-29] MEDS: HYDROPHOR 1 APPLIC TOPICAL (10:29)
--- NOTE | 2024-05-29 14:06 | CM ---
Cm spoke with nursing staff at the [facility] at [facility]
Pt is a an [facility] resident and typically AxO 3x with occasional pleasant confusion
Pt typically ambulates short distances with a WW in his room
He transfers independently and able to self propel his WC for longer distances with use of feet
Pt is able to perform personal care tasks independently
Staff notes he is easily distracted and pre-occupied by his phone
He requires cueing and prompting to follow through with tasks as he is easily distracted
Pt current with [facility] for wound care
PCP- Sanjeev Whittington
Rx- [facility]
PT/OT requested
per [facility], can return as a 1 person assist
If 2 or more, may require higher level of care
Discharge Disposition- return to the [facility] with [facility], watch for possible higher needs
[2024-05-29 15:00] VITALS: BP 121/69
[2024-05-29] MEDS: LOVENOX 40 MG SC (18:20)
[2024-05-29] MEDS: NEURONTIN 300 MG PO (22:52)
[2024-05-29 23:00] VITALS: BP 127/61
[2024-05-29 23:30] VITALS: BP 127/61
[2024-05-30] MEDS: TYLENOL PO ×2 (04:15→16:11)
[2024-05-30] MEDS: ANCEF 10 IV ×3 (05:08→20:15)
[2024-05-30 06:00] VITALS: BMI 38.9
[2024-05-30 07:27] VITALS: BP 131/70
[2024-05-30] MEDS: LASIX 60 MG IV (07:37)
[2024-05-30] MEDS: THERAGRAN 1 TABLET PO (07:39)
[2024-05-30] MEDS: TOPROL XL 100 MG PO (07:39)
[2024-05-30] MEDS: VITAMIN D3 (cholecalciferol) 50 MCG PO (07:39)
[2024-05-30] MEDS: ZOLOFT 75 MG PO (07:39)
[2024-05-30] MEDS: ASPIR LOW (ENTERIC COATED) 81 MG PO (07:40)
[2024-05-30] MEDS: CRESTOR 20 MG PO (07:40)
[2024-05-30] MEDS: PROTONIX 40 MG PO (07:40)
[2024-05-30] MEDS: KCL 20 MEQ PO (07:40)
[2024-05-30] MEDS: ZETIA 10 MG PO (07:40)
[2024-05-30] MEDS: HYDROPHOR 1 APPLIC TOPICAL (07:41)
[2024-05-30 08:45] VITALS: BP 113/63; PULSE 60; O2SAT 93
[2024-05-30 09:00] VITALS: BP 113/69; PULSE 65; O2SAT 94
[2024-05-30 09:04] LABS: Blood Urea Nitrogen 23 mg/dl (9-20); Carbon Dioxide 27 mmol/L (22-30); Chloride 105 mmol/L (98-107); Estimated Creatinine Clearance 90 ml/min; Glucose 96 mg/dl (70-99); Potassium 3.8 mmol/L (3.5-5.1); Sodium 140 mmol/L (135-145); eGFR > 60.00
[2024-05-30] MEDS: TYLENOL 1000 MG PO ×2 (09:44→21:08)
--- NOTE | 2024-05-30 10:48 | CM ---
CM reviewed chart, spoke with nurse Perez from [facility], reviewed PT notes with nurse, will fax to [facility] at [phone]. Per Chris, will be able to accept patient back to [facility] at current level. Nurse reports patient is current with
[facility] for wound care, will update [facility] on patient status. Nurse Perez feels patient may benefit from higher level of care for wound care needs, however, can accept patient back at current level. Patient seen bedside, reports no
concerns to CM at this time. CM will continue to follow for all discharge planning needs.
Plan; return to [facility] with [facility], watch for higher level of care recommendation.
[facility]
--- NOTE | 2024-05-30 12:42 | W.PN.HOSP.TC ---
Today's Communication/Plan
-
Continue with IV cefazolin for cellulitis
Continue with IV Lasix for lower extremity edema
Follow-up TTE
Assessment / Plan
Assessment / Plan
#Bilateral lower extremity venous stasis/lymphedema
#RLE nonpurulent cellulitis
-Lower extremity venous ultrasound negative for DVTs
-Failed outpatient course of cephalexin, likely with associated edema
-Now on IV cefazolin 2 g every 6 hours, ID following
-Currently on Lasix for improvement of lower extremity
-Will continue with IV cefazolin and Lasix for now
-Follow-up blood cultures, trend CBC and temperature
#Chronic lymphedema
-Follow-up TTE today
-Likely related to chronic venous insufficiency
-Encourage leg elevation, compression stockings
-IV Lasix as above for now
#Primary hypertension
-No known history of hypertensive systemic disease
-As home medications include metoprolol, Lasix
-Blood pressure currently stable
#CKD 3
-Per documentation, baseline creatinine likely near 0.9
-No known association with anemia, acidemia, bone mineral disease
-Trend BMP while on IV Lasix as well above
#CAD s/p PCI
#HLD
-Home medications include high intensity statin, aspirin, beta
-Has drug-eluting stent placed in LAD
-No signs of ACS
#Morbid obesity due to excess calories
-Has lost weight here, BMI now below 40
#Suspected Cognitive impairment
#ADHD
#Mood disorder
-Continue sertraline
DVT prophylaxis: Lovenox
Diet: Low cholesterol
CODE STATUS: Full code
Anticipated Discharge: 24 - 48 hours
Subjective/Interval History
-
Date of Service: May 30, 2024
Seen and examined the bedside. No acute interval overnight. AFVSS this morning
He still has some tenderness to palpation of the right lower extremity at the site of his cellulitis.
Denies acute complaints including chest pain, dyspnea or chills, GI issues, urinary, bleeding or bruising, paresthesias or weakness
Objective Data
-
Labs:
Laboratory Results
05/30/24
07:54
Sodium 140
Potassium 3.8
Chloride 105
Carbon Dioxide 27
BUN 23 H
Creatinine 0.9
Glucose 96
Calcium 9.0
Vital Signs:
Vital Signs
Temp Pulse Resp BP Pulse Ox
98.1 F 66 18 131/71 95
05/30/24 07:27 05/30/24 07:27 05/30/24 07:27 05/30/24 07:37 05/30/24 07:27
I&O
05/29/24 05/30/24 05/31/24
06:59 06:59 06:59
Intake Total 600 / 600 887 / 887
Balance 600 / 600 887 / 887
Review of Systems
-
History Source: Patient
All other systems: Reviewed and negative
Physical Exam
-
General: No Apparent Distress, Comfortable and Obese
HEENT: Normocephalic, Atraumatic and Moist Mucous Membranes
Respiratory: Clear to Auscultation and Non Labored Respirations
Cardiac: Regular Rhythm and S1/S2; Negative Murmur, Rub or Gallop
GI: Soft, Nontender, Nondistended and Normal Bowel Sounds
Musculoskeletal: No Clubbing, No Cyanosis and No Edema
Skin: Warm, Dry, Normal Turgor and Other (Warm, erythematous area on right lower extremity without purulent)
Neuro: AO x 3, Nonfocal/Grossly Intact and Central Nerve's Intact
Psych: Calm
Data Reviewed
-
Labs: Labs Reviewed by me and Discussed with Patient
[2024-05-30 15:21] VITALS: BP 124/64
[2024-05-30] MEDS: LOVENOX 40 MG SC (17:06)
--- NOTE | 2024-05-30 17:34 | W.PN.ID1 ---
Date of Service
Date of Service: May 30, 2024
Today's Communication
- agree with cefazolin, dose 2 gm iv q8 hours given declining BMI with lasix, switch to oral in the AM for 5 more days
- referral to lymphedema center on dc
Assessment / Plan
Nonpurulent Cellulitis
Chronic Venous stasis dermatitis
Chronic uncontrolled lymphedema
Class III Obesity
- blood cultures x2 in progress
- mrsa screen in progress
- agree with cefazolin, dose 2 gm iv q8 hours given declining BMI with lasix, switch to oral in the AM for 5 more days
- compression and elevation while awake and not eating - as important as the antibiotics
- SCDs
- follow up in lymphedema clinic
Chief Complaint
-: Cellulitis
Subjective / Review of Systems
afebrile
bp stable
BMI down to 38.9 with lasix
markedly improved erythema - there is hemosiderin deposition
Vital Signs / Physical Exam
Vital Signs
Vital Signs
Temp Pulse Resp BP Pulse Ox
97.8 F 66 20 124/64 100
05/30/24 15:21 05/30/24 15:21 05/30/24 15:21 05/30/24 15:21 05/30/24 15:21
Physical Exam
Constitutional: No Acute Distress
Cardiovascular: Regular Rate and S1/S2; Negative Murmur or Rub
Pulmonary: Clear and Symmetric; Negative Wheezes or Rales
Gastrointestinal: Soft, Non Tender, Non Distended and Normal Bowel Sounds
Skin: Warm, Dry and Rash (markedly improved swelling of the bilateral legs, there is hemosiderin deposition however blanching cellulitis resolved); Negative Jaundice
Objective Data
Lab Data
Lab Results
05/27/24 09:39
05/30/24 07:54
Estimated Creat Clear 90 ml/min 05/30/24 07:54
Total Bilirubin 0.7 mg/dl (0.2-1.3) 05/27/24 10:01
AST 44 U/L (17-59) 05/27/24 10:01
ALT 29 U/L (0-50) 05/27/24 10:01
Alkaline Phosphatase 73 U/L (38-126) 05/27/24 10:01
Most recent labs reviewed.
Micro Results:
05/27/24 10:01 Blood Culture - Preliminary
Blood/Venous No Growth in 72 hours- Final report to follow
05/27/24 09:39 Blood Culture - Preliminary
Blood/Venous No Growth in 72 hours- Final report to follow
05/27/24 18:25 MRSA Screen - Final
Nose Staph aureus MRSA
--- NOTE | 2024-05-30 17:45 | PTCARENOTE ---
Re-dressed pt's right calf and right griffin today 05/30/24 at 1749
[2024-05-30 19:08] LABS: Hepatitis C Antibody Negative (Negative)
[2024-05-30] MEDS: NEURONTIN 300 MG PO (21:08)
[2024-05-30 23:30] VITALS: BP 129/67
[2024-05-31] MEDS: TYLENOL PO ×2 (03:11→11:06)
[2024-05-31] MEDS: KEFLEX 500 MG PO ×2 (05:08→12:13)
[2024-05-31 06:00] VITALS: BMI 38.8
[2024-05-31 07:32] VITALS: BP 140/76
[2024-05-31] MEDS: TOPROL XL 100 MG PO (07:35)
[2024-05-31] MEDS: ZOLOFT 75 MG PO (07:35)
[2024-05-31] MEDS: KCL 20 MEQ PO (07:36)
[2024-05-31] MEDS: VITAMIN D3 (cholecalciferol) 50 MCG PO (07:36)
[2024-05-31] MEDS: LASIX 60 MG IV (07:36)
[2024-05-31] MEDS: CRESTOR 20 MG PO (07:36)
[2024-05-31] MEDS: PROTONIX 40 MG PO (07:37)
[2024-05-31] MEDS: ZETIA 10 MG PO (07:37)
[2024-05-31] MEDS: THERAGRAN 1 TABLET PO (07:37)
[2024-05-31] MEDS: HYDROPHOR 1 APPLIC TOPICAL (07:37)
[2024-05-31] MEDS: ASPIR LOW (ENTERIC COATED) 81 MG PO (07:37)
[2024-05-31 09:05] LABS: Chloride 104 mmol/L (98-107); Potassium 4.1 mmol/L (3.5-5.1); Sodium 143 mmol/L (135-145)
--- NOTE | 2024-05-31 09:08 | PN.CDI ---
CDI
- -
CDI:
Physician Documentation Request
Admit Date: 05/27/24 14:13
Dear Doctor Collins,
Please review the following and provide your response in the progress notes.
Clinical Indicators:
- 05/27 Wound note indicates Stage 2 left buttocks pressure injury, POA
Physician documentation of the type and location of wounds is required for compliant documentation. Based on the above clinical findings and your assessment, please provide the following in your progress note:
1. Location of the ulcer/wound, including laterality.
2. Type (etiology) of ulcer/wound:
- Diabetic ulcer
- Arterial (ischemic) ulcer
- Traumatic wound
- Venous stasis ulcer
- Pressure (decubitus) ulcer
- Non-healing surgical wound
- Other
- Unable to determine
Use of terms such as suspected, likely, concern for, or probable (associated with a specific diagnosis that is being evaluated, monitored, or treated as if it exists) are acceptable and can be coded in the inpatient setting, when documented at the
time of discharge.
Thank you,
Marlene Larry RN
CDI Specialist
Please use your independent medical judgment in providing your response.
*Source: National Pressure Ulcer Advisory Panel (NPUAP)
--- NOTE | 2024-05-31 09:10 | PN.CDI ---
CDI
- -
CDI:
Physician Documentation Request
Admit Date: 05/27/24 14:13
Dear Doctor Collins,
Please review the following and provide your response in the progress notes.
Clinical Indicators:
- 05/30 PN 'CKD 3...Per documentation, baseline creatinine likely near 0.9'
- per H&P 'CKD Stage IIIa'
- Documented labs:
Laboratory Tests
05/27/24 05/29/24 05/30/24
10:01 06:19 07:54
Creatinine 1.2 0.9 0.9
eGFR > 60.00 > 60.00 > 60.00
Please clarify which of the following accurately represents the patient's renal status:
CKD 2
Other (please specify)
Stages of Chronic Kidney Disease*
Level Description GFR
G1 Normal or High >90
G2 Mildly decreased 60-89
G3a Mildly to moderately decreased 45-59
G3b Moderately to severely decreased 30-44
G4 Severely decreased 15-29
G5 Kidney failure <15
Use of terms such as suspected, likely, concern for, or probable (associated with a specific diagnosis that is being evaluated, monitored, or treated as if it exists) are acceptable and can be coded in the inpatient setting, when documented at the
time of discharge.
Thank you,
Marlene Larry RN
CDI Specialist
Please use your independent medical judgment in providing your response.
*Source: Kidney Disease: Improving Global Outcomes (KDIGO) 2012
[2024-05-31 09:20] LABS: Blood Urea Nitrogen 24 mg/dl (9-20); Calcium 9.2 mg/dl (8.4-10.2); Carbon Dioxide 26 mmol/L (22-30); Estimated Creatinine Clearance 90 ml/min; Glucose 99 mg/dl (70-99); eGFR > 60.00
--- NOTE | 2024-05-31 09:29 | W.PN.HOSP.TC ---
Addendum entered and electronically signed by Yogi Guadalupe DO 05/31/24 11:32:
CDI:
-Stage II left buttocks decubitus ulcer, POA
-CKD 3 per documentation, GFR consistent with CKD 2
Original Note:
Today's Communication/Plan
-
Continue cephalexin for 5 days after discharge
Transition to oral Lasix at discharge
Follow-up with lymphedema clinic
Assessment / Plan
Assessment / Plan
#Bilateral lower extremity venous stasis/lymphedema
#RLE nonpurulent cellulitis
-Lower extremity venous ultrasound negative for DVTs
-Failed outpatient course of cephalexin, likely with associated edema
-Now on IV cefazolin 2 g every 6 hours, ID following
-Currently on Lasix for improvement of lower extremity
-Will transition to oral Keflex and Lasix regimen
#Chronic lymphedema
-Likely related to chronic venous insufficiency
-Encourage leg elevation, compression stockings
-Provide follow-up for lymphedema clinic at discharge
#Primary hypertension
-No known history of hypertensive systemic disease
-As home medications include metoprolol, Lasix
-Blood pressure currently stable
#CKD 3
-Per documentation, baseline creatinine likely near 0.9
-No known association with anemia, acidemia, bone mineral disease
-Trend BMP while on IV Lasix as well above
#CAD s/p PCI
#HLD
-Home medications include high intensity statin, aspirin, beta
-Has drug-eluting stent placed in LAD
-No signs of ACS
#Morbid obesity due to excess calories
-Has lost weight here, BMI now below 40
#Suspected Cognitive impairment
#ADHD
#Mood disorder
-Continue sertraline
DVT prophylaxis: Lovenox
Diet: Low cholesterol
CODE STATUS: Full code
Anticipated Discharge: Today
Subjective/Interval History
-
Date of Service: May 31, 2024
Seen and examined at the bedside. No acute events overnight. AFVSS this morning.
States he feels well and has no complaints today
Denies fevers or chills, chest pain, dyspnea, GI issues, urinary issues, bleeding or bruising, paresthesia or weakness
Objective Data
-
Labs:
Laboratory Results
05/31/24
08:15
Sodium 143
Potassium 4.1
Chloride 104
Carbon Dioxide 26
BUN 24 H
Creatinine 0.9
Glucose 99
Calcium 9.2
Vital Signs:
Vital Signs
Temp Pulse Resp BP Pulse Ox
98.1 F 59 18 140/76 98
05/31/24 07:32 05/31/24 07:32 05/31/24 07:32 05/31/24 07:35 05/31/24 08:00
I&O
05/30/24 05/31/24 06/01/24
06:59 06:59 06:59
Intake Total 887 / 887 1120 / 1120
Balance 887 / 887 1120 / 1120
Review of Systems
-
History Source: Patient
All other systems: Reviewed and negative
Physical Exam
-
General: No Apparent Distress, Comfortable and Obese
HEENT: Normocephalic, Atraumatic and Moist Mucous Membranes
Respiratory: Clear to Auscultation and Non Labored Respirations
Cardiac: Regular Rhythm and S1/S2; Negative Murmur, Rub or Gallop
GI: Soft, Nontender, Nondistended and Normal Bowel Sounds
Musculoskeletal: No Clubbing, No Cyanosis and No Edema
Skin: Warm, Dry, Normal Turgor and Other (Erythematous, nonpurulent lesion to the right lower extremity with mild warmth (improving))
Neuro: AO x 3, Nonfocal/Grossly Intact and Central Nerve's Intact
Psych: Calm
Data Reviewed
-
Labs: Labs Reviewed by me and Discussed with Patient
--- NOTE | 2024-05-31 09:41 | W.DCSUMMARY ---
Discharge Summary
Discharge Data
Date of Admission: 05/27/24
Date of Discharge: 05/31/24
-
Pending Results: No
Hospital Course
78-year-old male with CAD s/p PCI, CKD 3, lymphedema, GERD, hypertension, hyperlipidemia, suspected dementia that presented with nonpurulent cellulitis to the right lower extremity that failed outpatient treatment with levofloxacin. Suspected that
infection failed outpatient therapy in the context of lymphedema and reduced antibiotic efficacy. Was treated with IV cefazolin in the ED, given course of IV diuretics to improve edema. No fevers or leukocytosis present while on antibiotics in the
hospital. Clinically improved with antibiotics and time, decreased redness and warmth to the right lower extremity relative to left. Infectious disease consult recommended aggressive interventions against lymphedema to prevent further recurrence
of cellulitis as well as treatment of current infection. Was transition to Keflex 4 times daily to complete 5 more days of antibiotics after discharge from the hospital. Should continue with leg elevation and compression stockings after discharge
as tolerated. Transitioned back to oral Lasix 80 mg daily for chronic lymphedematous state. Provided follow-up information for lymphedema center
Discharge Plan
-
Patient Disposition: Home (Routine Discharge)
Discharge Diagnosis/Procedures: cellulitis of right lower extremity
Lymphedema
Condition: Good
Diet: No added salt
Activity: As tolerated
Driving Restrictions: Not until seen by your Dr
Bathing Restrictions: None
Blood Work: None
Others Tests: None
Activity Restrictions/Additional Instructions:
Wound Care Instructions
RLE-clean with saline or Vashe wound cleanser, Aquaphor ointment to dry intact skin le's, adaptic, ABD pad, Kerlix (add alginate prior to ABD pad prn large amount of drainage), change daily and as needed for drainage.
L skin linear ecchymotic isaac-pad with ABD pad under compression.
Barrier ointment (i.e. Calazime or Vaseline) to buttocks ulcers twice a day.
Bilateral Knee high Chaim wrap with Tubigrip on top as tolerated; from base of the toes to just below the knee; may remove at bedtime; reapply every morning.
Elevate heels off bed with pillows.
Pressure redistributing chair cushion (i.e. Bariatric air chair cushion).
Follow up at wound care center call for an appointment.
[facility]: Lymphedema center for follow-up
[address] [place] [address]
[phone]
Call to schedule
Instructions: Lymphedema
Referrals:
Sanjeev Whittington MD [Family Provider] -
Additional Discharge Medication Instructions: Continue cephalexin 500 mg 4 times daily for 5 days after discharge from the hospital
Elevate legs when resting
Use compression stockings to prevent lower extremity edema
Prescriptions:
New
cephalexin 500 mg Capsule
500 mg PO QID 5 Days Qty: 20 0RF
(DME) compression socks, large Misc
See Rx Instructions .ROUTE Qty: 2 0RF
Rx Instructions:
As directed
Continued
rosuvastatin 20 MG tablet
20 mg PO DAILY
sertraline 50 MG tablet
75 mg PO DAILY
ezetimibe 10 MG tablet
10 mg PO DAILY
triamcinolone acetonide 0.1 % Cream
1 applic TOPICAL BID Qty: 0
Rx Instructions:
apply to leg rash
multivitamin Tablet
1 tab PO DAILY
metoprolol succinate 100 mg Tablet Extended Release 24 Hr
100 mg PO DAILY
cholecalciferol (vitamin D3) [Vitamin D3] 50 mcg (2,000 unit) Capsule
50 mcg PO DAILY
acetaminophen [Acetaminophen Extra Strength] 500 mg tablet
1,000 mg PO Q6H
aspirin 81 mg Tablet,Delayed Release (Dr/Ec)
81 mg PO DAILY
potassium chloride 20 mEq tablet,ER particles/crystals
20 meq PO DAILY
furosemide 80 mg tablet
80 mg PO UD
Rx Instructions:
take 80mg bid for 5 days then 80mg daily there after
omeprazole 40 mg Capsule,Delayed Release(Dr/Ec)
40 mg PO DAILY
guar gum Packet
1 tbsp PO BID
gabapentin 300 mg Capsule
300 mg PO HS
Minerin Creme Cream
1 applic TOPICAL BID
ondansetron 4 mg tablet,disintegrating
8 mg PO Q8HPRN PRN (Reason: nausea)
Discontinued
levofloxacin 500 mg Tablet
500 mg PO DAILY
Rx Instructions:
for 10 days starting 05/23/24
Discharge Orders:
Discharge Patient (As Directed); Ordered 05/31/24
Ordered By: Yogi Guadalupe
Discharge Date and Time
Print Language: ROMANSH
--- NOTE | 2024-05-31 10:17 | W.PN.ID1 ---
Date of Service
Date of Service: May 31, 2024
Today's Communication
- switch to keflex for 5 more days
- compression, also elevation at least 1 hour twice daily
- follow up in lymphedema clinic
Assessment / Plan
Nonpurulent Cellulitis
Chronic Venous stasis dermatitis
Chronic uncontrolled lymphedema
Class III Obesity
- blood cultures x2 no growth to date
- switch to keflex for 5 more days
- compression, also elevation at least 1 hour twice daily
- follow up in lymphedema clinic
Chief Complaint
-: Cellulitis
Subjective / Review of Systems
afebrile
bp stable
no events overnight
Vital Signs / Physical Exam
Vital Signs
Vital Signs
Temp Pulse Resp BP Pulse Ox
98.1 F 59 18 140/76 98
05/31/24 07:32 05/31/24 07:32 05/31/24 07:32 05/31/24 07:35 05/31/24 08:00
Physical Exam
Constitutional: No Acute Distress
Cardiovascular: Regular Rate and S1/S2; Negative Murmur or Rub
Pulmonary: Clear and Symmetric; Negative Wheezes or Rales
Gastrointestinal: Soft, Non Tender, Non Distended and Normal Bowel Sounds
Skin: Warm, Dry and Rash (markedly improved swelling of the bilateral legs, there is hemosiderin deposition however blanching cellulitis resolved); Negative Jaundice
Neurological: Awake
Objective Data
Lab Data
Lab Results
05/27/24 09:39
05/31/24 08:15
Estimated Creat Clear 90 ml/min 05/31/24 08:15
Total Bilirubin 0.7 mg/dl (0.2-1.3) 05/27/24 10:01
AST 44 U/L (17-59) 05/27/24 10:01
ALT 29 U/L (0-50) 05/27/24 10:01
Alkaline Phosphatase 73 U/L (38-126) 05/27/24 10:01
Most recent labs reviewed.
Micro Results:
05/27/24 10:01 Blood Culture - Preliminary
Blood/Venous No Growth in 4 days- Final report to follow
05/27/24 09:39 Blood Culture - Preliminary
Blood/Venous No Growth in 4 days- Final report to follow
05/27/24 18:25 MRSA Screen - Final
Nose Staph aureus MRSA
--- NOTE | 2024-05-31 10:28 | CM ---
CM reviewed chart, patient for discharge. CM placed call to nurse Perez at the [facility], confirmed ability to accept patient. Script for PT/OT placed in patients chart, update to [facility] on discharge status. Patient seen bedside, agreeable
for CM to call daughter, Ana Luisa CANALES. CM spoke with Ana Luisa, will provide transportation around 2:00 p.m. IMM reviewed with Ana Luisa, agreeable to discharge. CM will continue to follow for all discharge planning needs.
Plan; Return to [facility] with script for PT/OT, [facility]
Report: [phone]
[2024-05-31 14:01] VITALS: BP 134/78
== END 2024-05-31 14:56 | disposition home health service (06) | DRG 603 ==
LOC: 4 WEST ACU 14:13
PROVIDERS: ADMITTING PHYSICIAN Hospitalist; ATTENDING PHYSICIAN Internal Medicine; CONSULT PHYSICIAN Student in an Organized Health Care Education/Training Program; EMERGENCY PHYSICIAN Emergency Medicine; FAMILY PHYSICIAN Internal Medicine
DX: L03.115 Cellulitis of right lower limb (principal); E66.813 Obesity, class 3; Z68.38 Body mass index [BMI] 38.0-38.9, adult; I87.8 Other specified disorders of veins; N18.2 Chronic kidney disease, stage 2 (mild); L89.322 Pressure ulcer of left buttock, stage 2
CPT/HCPCS: 80048; 80053; 85025; 86803; 87040; 87070; 87147; 93306; 93970; 96365; 96366; 97162; 97166; 99203; 99284

== ENCOUNTER 2024-08-09 08:36 | Outpatient (RCR) | payer MEDICARE, BC, OTHER, SELFPAY | END 2024-08-09 23:59 | disposition home or self-care (01) | LOC: RPT 08:36 | PROVIDERS: ATTENDING PHYSICIAN Internal Medicine | DX: I89.0 Lymphedema, not elsewhere classified (principal); M62.81 Muscle weakness (generalized); Z73.6 Limitation of activities due to disability; R26.2 Difficulty in walking, not elsewhere classified; M79.605 Pain in left leg; M79.604 Pain in right leg; G62.9 Polyneuropathy, unspecified | CPT/HCPCS: 97163; 97530 ==

== ENCOUNTER 2024-10-03 15:23 | Outpatient (RCR) | payer MEDICARE, BC, OTHER, SELFPAY | END 2024-10-03 23:59 | disposition home or self-care (01) | LOC: RPT 15:23 | PROVIDERS: ATTENDING PHYSICIAN Internal Medicine | DX: I89.0 Lymphedema, not elsewhere classified (principal); M62.81 Muscle weakness (generalized); Z73.6 Limitation of activities due to disability; R26.2 Difficulty in walking, not elsewhere classified; M79.605 Pain in left leg; M79.604 Pain in right leg; G62.9 Polyneuropathy, unspecified | CPT/HCPCS: 97140; 97530 ==

== ENCOUNTER 2024-11-02 14:56 | Outpatient (RCR) | payer MEDICARE, BC, OTHER, SELFPAY | END 2024-11-03 07:32 | disposition home or self-care (01) | LOC: RPT 14:56 | PROVIDERS: ATTENDING PHYSICIAN Internal Medicine | DX: I89.0 Lymphedema, not elsewhere classified (principal); M62.81 Muscle weakness (generalized); Z73.6 Limitation of activities due to disability; R26.2 Difficulty in walking, not elsewhere classified; M79.605 Pain in left leg; M79.604 Pain in right leg; G62.9 Polyneuropathy, unspecified | CPT/HCPCS: 97530 ==

== ENCOUNTER 2024-12-14 12:17 | Emergency (ER) | payer MEDICARE, BC, OTHER, SELFPAY ==
[2024-12-14 12:19] VITALS: BP 164/89
--- NOTE | 2024-12-14 16:01 | ED.GENMED ---
History of Present Illness
General
Chief Complaint: Head Injury
Time Seen by Provider: 12/14/24 15:55
History of Present Illness
History of Present Illness:
TIME OF INITIAL ENCOUNTER: 3:30 PM
HPI: The patient presents due to a headache. He resides at the [facility] and he fell off the toilet 4 days ago striking his head. He had no significant symptoms until today when he developed a headache that was initially stabbing in the
forehead and is now more generalized in the head. He has chronic low back pain but not necessarily anything new or worsened since the fall. Son thought he may be a little bit more confused than baseline. The patient does take a baby aspirin daily
EXAM:
GENERAL: The patient appears somewhat weak and debilitated and urinary incontinence is noted on the pants
CERVICAL SPINE: No midline c-spine tenderness with excellent AROM
HEAD: There is faint abrasion over the left side of the upper forehead
CHEST: No chest wall tenderness, normal heart sounds
LUNGS: Equal lung sounds, no respiratory distress
ABDOMEN: No abdominal tenderness, no peritoneal signs, elevated BMI
EXTREMITIES: Edema noted
NEURO: Appears slightly confused but overall is giving a reasonable history, moves all extremities equally
NUMBER AND COMPLEXITY OF PROBLEMS ADDRESSED AT THE ENCOUNTER
� Chronic conditions affecting care: HTN, Hyperlipidemia, CAD/CO
� Acute Exacerbation and/or Progression of Chronic Illness: This is an acute problem
� Differential Diagnosis includes: Intracranial hemorrhage, minor head injury, concussion, abrasion
AMOUNT AND/OR COMPLEXITY OF DATA TO BE REVIEWED AND ANALYZED
� I performed an independent evaluation of and my interpretation is:
EKG:
CT: CT imaging personally reviewed and I also discussed with Dr. Morales who notes no acute abnormality
X-rays:
Laboratory Studies:
Other:
� Review of other/old records: I reviewed records, the patient was admitted for cellulitis in 2023
� Clinical information was obtained by an independent historian: I spoke to the son at bedside
� Prescriptions/Medications Considered but not given:
� Further testing considered but not performed:
RISK OF COMPLICATIONS AND/OR MORBIDITY OR MORTALITY OF PATIENT MANAGEMENT
� Social determinants of health affecting care: Resides at the [facility]
� Discussion with other providers:
� Escalation of care including admission/observation vs risk of discharge considered: Given patient's age with headache after trauma along with being on aspirin, CT head obtained which shows no acute abnormality.
ANY OTHER UPDATES:
Past History
Past History
ED Past Medical History: CAD, GERD, HTN, Hypercholesterolemia, CO and Other (sleep apnea, Pneumonia)
ED Past Surgical History: Cardiac (Stent LAD) and Cholecystectomy
Patient has exhibited threatening behavior?: No
PSI?: No
Social History
Tobacco: Non-smoker
Alcohol: None
Drug: None
Personal:
Living: alone
Employment: Employed
Family History
Family History: CAD
Phy Exam
Physical Exam
Physical Exam:
See HPI
Course
Orders/Labs/Results
Orders:
Orders
12/14/24 12:[address] [CT Head W/o Iv Contrast] Urgent
Comment:
Reason For Exam: fall
Vital Signs
Initial and Last Documented VS:
Initial Vital Signs
Temp Pulse Resp BP Pulse Ox
36.6 C 60 16 164/89 97
12/14/24 12:19 12/14/24 12:19 12/14/24 12:19 12/14/24 12:19 12/14/24 12:19
Last Documented Vital Signs
Temp Pulse Resp BP Pulse Ox
36.6 C 60 16 164/89 97
12/14/24 12:19 12/14/24 12:19 12/14/24 12:19 12/14/24 12:19 12/14/24 12:19
*Critical Care Note
Total Time (30-74mins, 75-104mins- exclusive of procedures): Not Applicable
ED Attending Note
-
Portions of this chart may have been created with voice recognition software.� Occasional wrong word or��sound alike� substitutions may have occurred due to the inherent limitations of voice recognition software.
Discharge Plan
Departure
Patient Disposition: Home (Routine Discharge)
Date of Disposition: 12/14/24
Time of Disposition: 15:59
Patient with high blood pressure during this ER visit?: Yes
Discharge Problem:
Head injury
Instructions: Head Injury in Adults (DC), BLOOD PRESSURE
Prescriptions:
No Action
rosuvastatin 20 MG tablet
20 mg PO DAILY
sertraline 50 MG tablet
75 mg PO DAILY
ezetimibe 10 MG tablet
10 mg PO DAILY
triamcinolone acetonide 0.1 % Cream
1 applic TOPICAL BID Qty: 0
Rx Instructions:
apply to leg rash
multivitamin Tablet
1 tab PO DAILY
metoprolol succinate 100 mg Tablet Extended Release 24 Hr
100 mg PO DAILY
cholecalciferol (vitamin D3) [Vitamin D3] 50 mcg (2,000 unit) Capsule
50 mcg PO DAILY
acetaminophen [Acetaminophen Extra Strength] 500 mg tablet
1,000 mg PO Q6H
aspirin 81 mg Tablet,Delayed Release (Dr/Ec)
81 mg PO DAILY
potassium chloride 20 mEq tablet,ER particles/crystals
20 meq PO DAILY
furosemide 80 mg tablet
80 mg PO UD
Rx Instructions:
take 80mg bid for 5 days then 80mg daily there after
omeprazole 40 mg Capsule,Delayed Release(Dr/Ec)
40 mg PO DAILY
guar gum Packet
1 tbsp PO BID
gabapentin 300 mg Capsule
300 mg PO HS
Minerin Creme Cream
1 applic TOPICAL BID
ondansetron 4 mg tablet,disintegrating
8 mg PO Q8HPRN PRN (Reason: nausea)
cephalexin 500 mg Capsule
500 mg PO QID 5 Days Qty: 20 0RF
(DME) compression socks, large Misc
See Rx Instructions .ROUTE Qty: 2 0RF
Rx Instructions:
As directed
Activity Restrictions/Additional Instructions:
The CAT scan of the brain shows no internal bleeding or any other acute abnormality. Return here if worse or other concerns.
Interventions
Interventions:
*Risk Screen - Suicide Last Done: 12/14/24 12:24
*Neglect/Abuse Screening Last Done: 12/14/24 12:24
Discharge Date and Time
Print Language: CANADIAN
[2024-12-14 16:50] VITALS: BP 129/85
--- NOTE | 2024-12-14 16:50 | DOWNTIME ---
There was a [employer] Client Radiological Health Specialist Downtime on 12/14/2024 from 1230 to 12/14/2024 at 1550. Downtime documentation of patient's care, including medication administrations, has been reconciled in the electronic record per guidelines. Refer to the
patient's paper chart under the miscellaneous tab to see printed paper medication records and downtime forms.
== END 2024-12-14 16:53 | disposition home or self-care (01) ==
LOC: EMR 12:17
PROVIDERS: EMERGENCY PHYSICIAN Emergency Medicine; FAMILY PHYSICIAN Internal Medicine
DX: S09.90XA Unspecified injury of head, initial encounter (principal); W18.11XA Fall from or off toilet without subsequent striking against object, initial encounter; E78.00 Pure hypercholesterolemia, unspecified; G47.30 Sleep apnea, unspecified; G89.29 Other chronic pain; I10 Essential (primary) hypertension; I25.10 Atherosclerotic heart disease of native coronary artery without angina pectoris; Z79.82 Long term (current) use of aspirin; Z95.5 Presence of coronary angioplasty implant and graft
CPT/HCPCS: 99284; 70450

== ENCOUNTER → 2025-05-10 12:15 | Outpatient (REF) | payer OTHER, MEDICARE, BC, SELFPAY ==
[2025-05-10 12:38] LABS: Hematocrit 49.8 % (39.0-52.0); Hemoglobin 16.0 g/dL (13.0-18.0); Mean Corp Hgb Conc. 32.1 g/dL (33.0-37.0); Mean Corpuscular Volume 89.1 fL (80.0-94.0); Nucleated Red Blood Cells % 0 % (-); Platelet Count 211 10^3/uL (130-400); Red Cell Dist. Width 13.4 % (11.5-14.5)
== END ==
LOC: OLABP 12:15
PROVIDERS: ATTENDING PHYSICIAN Family Medicine
DX: R55 Syncope and collapse (principal); I25.10 Atherosclerotic heart disease of native coronary artery without angina pectoris; E66.01 Morbid (severe) obesity due to excess calories; E78.5 Hyperlipidemia, unspecified; I10 Essential (primary) hypertension
CPT/HCPCS: 36415; 85025

== ENCOUNTER → 2025-05-11 09:10 | Outpatient (REF) | payer OTHER, MEDICARE, BC, SELFPAY ==
[2025-05-11 10:33] LABS: Blood Urea Nitrogen 19 mg/dl (9-20); Calcium 9.0 mg/dl (8.4-10.2); Carbon Dioxide 25 mmol/L (22-30); Chloride 109 mmol/L (98-107); Glucose 95 mg/dl (70-99); Potassium 4.4 mmol/L (3.5-5.1); Sodium 140 mmol/L (135-145); eGFR > 60.00
== END ==
LOC: OLABP 09:10
PROVIDERS: ATTENDING PHYSICIAN Family Medicine
DX: G47.30 Sleep apnea, unspecified (principal); E66.01 Morbid (severe) obesity due to excess calories; E78.5 Hyperlipidemia, unspecified; F31.0 Bipolar disorder, current episode hypomanic; H91.90 Unspecified hearing loss, unspecified ear; I10 Essential (primary) hypertension
CPT/HCPCS: 36415; 80048

== ENCOUNTER → 2025-06-03 11:46 | Outpatient (REF) | payer OTHER, MEDICARE, BC, SELFPAY | LOC: OLABP 11:46 | PROVIDERS: ATTENDING PHYSICIAN Family Medicine | DX: M48.07 Spinal stenosis, lumbosacral region (principal); M51.26 Other intervertebral disc displacement, lumbar region; K21.9 Gastro-esophageal reflux disease without esophagitis; H91.90 Unspecified hearing loss, unspecified ear; R55 Syncope and collapse; W19.XXXD Unspecified fall, subsequent encounter; F32.A Depression, unspecified; G47.30 Sleep apnea, unspecified; E66.01 Morbid (severe) obesity due to excess calories; E78.5 Hyperlipidemia, unspecified | CPT/HCPCS: 87324; 87449 ==

== ENCOUNTER 2025-06-06 10:01 | Day surgery (SDC) | payer MEDICARE, OTHER, BC, SELFPAY ==
[2025-06-06] VITALS (27 sets, daily range): BP systolic 91–147; BP diastolic 51–99; BMI 40.2
--- NOTE | 2025-06-06 13:34 | ITS.CL.PACE ---
Reinstatement Clerk - Pacemaker Implant
Pacemaker Implant
Procedure Report:
Leadless Pacemaker (Micra) Implantation:
Mr. Zimmer is a very pleasant 79 yr old gentleman with tachy jaiden syndrome, with baseline bradycardia with sick sinus syndrome, recurrent syncope and falls, with hx of CAD, HTN, GERD. QUENTIN, morbid obesity and hydrocephalus with dementia is
recommended a leadless PPM.
Indications: Bradycardia with syncope
Date of the Procedure:
06/06/2025
Pre-Operative Diagnosis: Severe symptomatic bradycardia with syncope
Post-Operative Diagnosis: Severe symptomatic bradycardia with syncope
Procedure Performed: Leadless pacemaker placement
Performing Physician:
Walter King MD
Anesthesia:
See anesthesia records
Detailed Description of the Procedure:
Written informed consent was obtained from the patient�s son (Rigo CANALES) after a full explanation of the risks and benefits of the procedure including the risks of sedation and anesthesia.
The patient was brought to the electrophysiology laboratory in stable condition in fasting state. Continuous electrocardiographic and hemodynamic monitoring was initiated.
The initial rhythm was normal sinus rhythm.
The procedure site was meticulously prepared with surgical scrub and allowed to dry with no pooling. Sterile draping was applied to cover the procedure site. The image intensifier was draped with sterile bag and positioned over the patient.
After infusion of local anesthetic, vascular access was obtained under ultrasound guidance and sheath was placed over guide wire as detailed below.
Heparin was infused.
An 8Fr sheath in right femoral vein was placed. Using the various dilators, the access was upgraded to 27Fr sheath for Micra implantation.
The 27 Fr Micra outer sheath was successfully and carefully advanced to the RA.
Leadless Pacemaker (Micra) implantation:
The delivery system of the Micra was prepped with removal of all air underwater and was advanced into the sheath to the RA with continuous saline irrigation. The sheath was pulled back to the IVC and the delivery sheath was advanced into the RV
cavity. The delivery system as placed against the ventricular septum using ROE and MALA fluoroscopic views and the septal approximation was confirmed with contrast injection. Once adequate location was confirmed, the locked sutures were unlocked and
the Micra was slowly advanced pulling back the delivery sheath releasing the anchoring hooks. The Micra was attached successfully to the RV septum. The PM was tested and adequate sensing and threshold noted.
Next, the tug test was done with the pulling the attached suture under fluoroscopic guidance with the three anchors securely embedded and showed movement and widening of the anchors with pulling them. The PPM again was tested showing stable
thresholds and excellent sensing.
The one side of the suture was cut and the other side was gradually and carefully pulled until free. The delivery system sheath was pulled back to the IVC and the PPM was again tested showing stable numbers.
Jaiden parameter settings were VDD 50 bpm. �
Measured data in the Micra was sensing of 8.6 mV, impedance of 830 ohms and the threshold of 0.5 V at 0.24ms�
Implant device:
Medtronic Micra AV Model# [id number]; Serial No: [id number]
Procedure End
Following the completion of the Micra implant, catheters were removed.
Given patient dementia, the decision was made to also place a �figure of 8� sutures. The sheaths were removed and hemostasis achieved with manual compression.
Estimated Blood loss:
<5 cc
Specimens Removed:
None.
Implants / Devices:
None
Urine output:
None
Packs / Drains/ Tubes:
None
Instrument / Sponge Count Correct:
Yes
Complications of the Procedure:
None
Condition of Patient at Time of Transfer:
Hemodynamically stable with no neurological or vascular compromise.
Summary:
Successful implantation of MRI compatible Leadless ventricular pacemaker
--- NOTE | 2025-06-06 15:39 | PTCARENOTE ---
Pt converted to afib around 1500 pt's heart rate 120's pt asymptomatic , pt denies any complaints, VS stable, Samia Hatfield [employer] aware at bedside to see patient. Metoprolol ordered will monitor and follow orders accordingly.
[2025-06-06] MEDS: TOPROL XL 100 MG PO (15:49)
--- NOTE | 2025-06-06 17:30 | PTCARENOTE ---
pt arrives around 1720 from PACU. pt aaox2; not time. VSS. oriented to unit, assessment and admission completed. plan of care continues to be followed.
[2025-06-06] MEDS: TYLENOL 650 MG PO (18:40)
[2025-06-06] MEDS: ZOFRAN 4 MG IV (20:50)
[2025-06-06] MEDS: TRIAMCINOLONE ACETONIDE 0.1% CREAM 1 APPLIC TOPICAL (20:53)
[2025-06-06] MEDS: NSS 500 IV (21:44)
--- NOTE | 2025-06-06 21:45 | PTCARENOTE ---
Received pt AAOx1, pleasant, confused/forgetful, at his baseline with hx of dementia. Recc'd in Afib on the monitor HR 110s-120s with systolic BP 120's. Pt vomited x2, PRN Zofran administered with reported relief. Pt's HR increasing to 130's-140's,
no reported sx, denies SOB/CP/palpitations, resting comfortably in bed. Pt's BP running soft, systolic 90's-low 100's. RLE remains neurovascularly intact, pedal pulse by doppler, cool to the touch. Dressing to R groin with purple ecchymosis around
the dressing, unchanged from shift change/previous checks. D/w Dr. Dejesus via telephone, on-call cardiology, verbal order received for STAT CBC and 500cc bolus NSS @ 250mL/hr. CBC drawn and sent to the lab, NSS confirmed by pharmacy and initiated. Pt
resting comfortably in bed, offers no complaints at this time.
[2025-06-06 21:48] LABS: Hematocrit 44.2 % (39.0-52.0); Hemoglobin 14.2 g/dL (13.0-18.0); Mean Corp Hgb Conc. 32.1 g/dL (33.0-37.0); Mean Corpuscular Volume 89.7 fL (80.0-94.0); Platelet Count 127 10^3/uL (130-400); Red Cell Dist. Width 13.2 % (11.5-14.5)
[2025-06-06] MEDS: NEURONTIN 300 MG PO (22:16)
[2025-06-06] MEDS: CRESTOR 20 MG PO (22:16)
--- NOTE | 2025-06-06 23:20 | PTCARENOTE ---
Taurus Reece at the bedside to assess R groin site, states she agrees purpled area surrounding dressing is ecchymotic and not a hematoma.
[2025-06-07] VITALS (24 sets, daily range): BP systolic 98–120; BP diastolic 58–91; BMI 37.8
[2025-06-07 03:55] LABS: Hematocrit 53.9 % (39.0-52.0); Hemoglobin 16.7 g/dL (13.0-18.0); Mean Corp Hgb Conc. 31.0 g/dL (33.0-37.0); Mean Corpuscular Volume 92.1 fL (80.0-94.0); Platelet Count 153 10^3/uL (130-400); Red Cell Dist. Width 13.3 % (11.5-14.5)
[2025-06-07 04:13] LABS: Blood Urea Nitrogen 23 mg/dl (9-20); Calcium 8.9 mg/dl (8.4-10.2); Carbon Dioxide 30 mmol/L (22-30); Chloride 105 mmol/L (98-107); Estimated Creatinine Clearance 74 ml/min; Glucose 106 mg/dl (70-99); Potassium 4.1 mmol/L (3.5-5.1); Sodium 139 mmol/L (135-145); eGFR > 60.00
--- NOTE | 2025-06-07 07:47 | W.PN.CD ---
Today's Communication / Plan
-
- Rate controlled with addition of digoxin and reduce metoprolol to home dose
- Chest x-ray today
- Reassess later for possible discharge if rates are well-controlled.
Impression / Plan
-
79-year-old gentleman with tachybradycardia syndrome, paroxysmal atrial fibrillation, with severe bradycardia and syncope status post leadless pacemaker AV Micra, with history of CAD status post PCI, hydrocephalus with dementia, HTN, CHF, HPL, QUENTIN
and morbid obesity is admitted post implant and has gone into atrial fibrillation with rapid ventricle response.
Paroxysmal atrial fibrillation with RVR
- Heart rates are significantly elevated.
- Patient's metoprolol was increased from 100 once a day 200 twice daily yesterday.
- Rates remain elevated.
- Patient's potassium is 4.1 and creatinine is 0.9-1.0. We will start patient on digoxin 250 mcg x 1 now and we will give 250 mcg daily
-Reduce metoprolol back to 100 mg once a day.
- Elevated [id number] score of 5- age, HTN, CHF, CAD, hypertension
- On Eliquis 5 mg twice daily.
Tachybradycardia syndrome
- Status post leadless pacemaker AV Micra on 06/06/2025
- At this time patient is tachycardic and bradycardia therapies are not active.
-Will obtain chest x-ray to assess the location of the pacemaker.
CAD
- On metoprolol, Eliquis, Crestor, Zetia
CHF
- Patient was noted to be in fluid overload at the time of the procedure and
- Right heart cath was not done and right-sided pressure is not assessed. But appears elevated.
- On Lasix 40 mg daily.
Obstructive sleep apnea
- Morbid obesity with dementia plays a significant role and compliance is an issue.
- Long-term treatment as per primary care provider
Physical Exam
Vital Signs/Labs
Vital Signs
Temp Pulse Resp BP Pulse Ox
97.9 F 110 18 99/77 94
06/07/25 07:10 06/07/25 07:10 06/07/25 07:10 06/07/25 05:01 06/07/25 07:10
06/06/25 06/07/25 06/08/25
06:59 06:59 06:59
Actual Weight 127.006 kg 119.4 kg
06/07/25 03:32
06/07/25 03:32
Physical Exam
Constitutional: No acute distress and Comfortable
EENT: Anicteric and Moist mucous membranes
Cardiovascular: Rhythm/rate is irregular, Pedal edema present and JVD present
Respiratory: Respiratory effort normal and Lungs clear to auscul.
GI: Soft, Non tender and Normal bowel sounds
Neuro/Psych: Alert
Other: Cath Site
Data Reviewed
-
Date of Service: June 07, 2025
Medical Decision Making: Reviewed Test Results, Test Interpretation and Review of Case with other Provider
EKG: Tracing Personally Visualized and interpreted
Echo: Report Reviewed by me
Labs: Labs Reviewed by me
Old Records: Reviewed
--- NOTE | 2025-06-07 07:58 | W.PN.UPDATE ---
Update Note
Progress Note Update
Patient has converted back to sinus rhythm Spontaneously this morning.
We will not give IV digoxin at this time. Given the fact that patient was significantly fast with RVR, we will start patient on digoxin p.o. for better rate control as an outpatient.
Will discharge patient home today.
--- NOTE | 2025-06-07 08:12 | PTCARENOTE ---
Orders noted for IV digoxin now and daily PO digoxin. NSR noted on telemetry, HR 60-80s, confirmed by EKG. Dr. King notified during rounds. Now dose of IV digoxin cancelled.
[2025-06-07] MEDS: ZOLOFT 75 MG PO (09:40)
[2025-06-07] MEDS: ZETIA 10 MG PO (09:40)
[2025-06-07] MEDS: KCL 20 MEQ PO (09:40)
[2025-06-07] MEDS: ELIQUIS 5 MG PO (09:40)
[2025-06-07] MEDS: LASIX 40 MG PO (09:41)
[2025-06-07] MEDS: TOPROL XL 100 MG PO (09:41)
[2025-06-07] MEDS: PROTONIX 40 MG PO (09:41)
[2025-06-07] MEDS: TRIAMCINOLONE ACETONIDE 0.1% CREAM TOPICAL (09:42)
--- NOTE | 2025-06-07 10:40 | CM ---
spoke to pt in room, he tells me that he lives at the [facility] in [place]. he could not remeber who brought him to the hospital yesterday. spoke to daughter PARKER on phone. she confirmed above, said pt has dementia. he uses a walker. she is trying to
arrange someone to pick him up today to go back to the [facility]. awaiting call back.
--- NOTE | 2025-06-07 11:45 | CM ---
pt to go back to [place] today, spoke to daughter she requested a wc van to be set up . she is aware that insur will not cover the cost and they will bill her. she agreed.
--- NOTE | 2025-06-07 11:53 | PTCARENOTE ---
Ambulated to bathroom with assist x1-2 and walker. Assisted into chair for breakfast. Chair alarm in place and monitoring. Awaiting for transportation back to [facility] to be set up.
[2025-06-07] MEDS: LANOXIN 125 MCG PO (12:00)
--- NOTE | 2025-06-07 13:59 | W.DS.TRANS ---
DC Summary - Chief Librarian Circulation Department
-
Discharge Instructions:
Discharge Diagnosis/Procedures Micra pacemaker implant
Diet Low Cholesterol
Driving Restrictions No driving
Instructions:
Stand-Alone Forms: DC Instructions- Cath/EP Lab
Changes to Home Medications: Yes
Discharge Medications:
DC Medications w/original date entered in [facility]
rosuvastatin 20 mg tablet 20 mg PO HS High cholesterol 05/19/13
ezetimibe 10 mg tablet 10 mg PO DAILY High cholesterol 11/23/20
sertraline 50 mg tablet 75 mg PO DAILY depression/anxiety 11/23/20
triamcinolone acetonide 0.1 % topical cream 1 applic topical BID lower extremites ##0 02/28/22
acetaminophen 500 mg tablet (Acetaminophen Extra Strength) 1,000 mg PO Q6H Supplement 04/18/22
cholecalciferol (vitamin D3) 50 mcg (2,000 unit) capsule (Vitamin D3) 50 mcg PO DAILY Supplement 04/18/22
metoprolol succinate 100 mg tablet,extended release 24 hr 100 mg PO DAILY Blood pressure 04/18/22
multivitamin 1 tab PO DAILY Supplement 04/18/22
potassium chloride 20 mEq tablet,extended release(part/cryst) 20 meq PO DAILY Electrolyte Repletion 01/09/23
gabapentin 300 mg capsule 300 mg PO HS pain 05/27/24
guar gum 1 tbsp PO BID Constipation 05/27/24
lanolin alcohols-mineral oil-w.petrolatum-ceresin topical cream (Minerin Creme topical) 1 applic topical BID b/l lower legs 05/27/24
omeprazole 40 mg capsule,delayed release 40 mg PO DAILY Gastrointestinal Issue 05/27/24
ondansetron 4 mg disintegrating tablet 8 mg PO Q8HPRN PRN nausea 05/27/24
Saccharomyces boulardii 250 mg capsule 250 mg PO BID 06/06/25
apixaban 5 mg tablet (Eliquis) 5 mg PO BID 06/06/25
furosemide 40 mg tablet 40 mg PO DAILY 06/06/25
lidocaine 4 % topical patch 2 patch topical BID PRN pain 06/06/25
digoxin 125 mcg (0.125 mg) tablet 125 mcg PO NOON #30 tabs 06/07/25
Home Medication Changes
new to digoxin
Pending Results: No
== END 2025-06-07 15:19 | disposition home or self-care (01) ==
LOC: CATH 10:01
PROVIDERS: Internal Medicine Cardiovascular Disease; Nurse Practitioner; ATTENDING PHYSICIAN Internal Medicine Cardiovascular Disease; FAMILY PHYSICIAN Internal Medicine; OTHER PHYSICIAN Internal Medicine Cardiovascular Disease
DX: I49.5 Sick sinus syndrome (principal); Z79.899 Other long term (current) drug therapy; R55 Syncope and collapse; Z79.01 Long term (current) use of anticoagulants; E66.01 Morbid (severe) obesity due to excess calories; G47.33 Obstructive sleep apnea (adult) (pediatric); F03.90 Unspecified dementia, unspecified severity, without behavioral disturbance, psychotic disturbance, mood disturbance, and anxiety; I11.0 Hypertensive heart disease with heart failure; I25.10 Atherosclerotic heart disease of native coronary artery without angina pectoris; I44.0 Atrioventricular block, first degree; I48.0 Paroxysmal atrial fibrillation; Z88.8 Allergy status to other drugs, medicaments and biological substances; Z95.5 Presence of coronary angioplasty implant and graft
CPT/HCPCS: 33274; 71045; 80048; 85027; 93005; C1769; C1786; C1894

== ENCOUNTER 2025-06-10 18:28 | Emergency (ER) | payer MEDICARE, OTHER, BC, SELFPAY ==
[2025-06-10 18:29] VITALS: BP 165/79
[2025-06-10 20:17] VITALS: BP 105/77; BMI 39.0
--- NOTE | 2025-06-10 21:43 | ED.MUSCINJ ---
HPI-Injury
General
Chief Complaint: Fall
Source: family (Daughter)
Exam Limitations: none
Time Seen by Provider: 06/10/25 20:00
Nursing documentation reviewed up to this point in time: agreed with
History of Present Illness-Injury
Is this injury a work related problem?: No
Is pt an associate of [facility]?: No
Initial Injury comments:
Patient to the ED emergency department from [facility] for evaluation after unwitnessed fall. According to patient's daughter, patient was found on his bathroom floor by his son. Patient does not remember fall. He initially told his son
that his left foot hurt. He was transported to the emergency department for further evaluation. He is able to stand on bilateral lower extremities without any difficulty. He has had 5 falls in the last year. Diagnosed with tachybradycardia
syndrome, paroxysmal atrial fibrillation. daughter states that patient had a pacemaker placed 05/2025. He was discharged from [place] to rehab and then returned 4 days ago to the [facility]. On arrival to ED patient is awake and
cooperative. He is unable to give us any information about his fall however. Daughter is at bedside.
Past History
Past History
ED Past Medical History: Arrthythmia (afib, tahybradycardia syndrome), CAD, CHF, GERD, HTN, Hypercholesterolemia, AR and Other (sleep apnea, Pneumonia)
ED Past Surgical History: Cardiac (Stent LAD) and Cholecystectomy
Patient has exhibited threatening behavior?: No
PSI?: No
Social History
Tobacco: Non-smoker
Alcohol: None
Drug: None
Personal:
Living: alone
Employment: Employed
Family History
Family History: CAD
Review of Systems
Review of Systems
Allergies reviewed?: Yes
All Other Systems: ROS reviewed and negative except as documented in HPI and ROS
Constitutional: Reports no symptoms
EENT: Reports no symptoms
Respiratory: Reports no symptoms
Cardiac: Reports no symptoms
ABD/GI: Reports no symptoms
: Reports no symptoms
Musculoskeletal: Reports joint pain (Pain to left foot)
Skin: Reports no symptoms
Neurological: Reports no symptoms
Psychiatric: Reports no symptoms
Musculoskeletal Injury Exam
Musculoskeletal Injury Exam
Left Lower Leg:
Pain with Movement?: Mild
Tender to palpation?: Mild
Soft tissue swelling?: None
External deformity and angulation?: None
Joint effusion?: None
Hematoma-local bleeding into tissue?: None
Strain- Sprain- Tear (Connective tissue injury)?: Moderate
Crepitus with movement?: No
Joint instability?: No
Malalignment/deformity?: No
Range of motion: Full
Distal skin color and temperature: normal-warm & good color
Capillary Refill: normal
Normal distal neurovascular exam?: Yes
Phy Exam
General Physical Exam
General Presentation: well appearing and mild distress
General age: appears stated age
General Skin: warm and dry
General Habitus: normal
General Mental: alert
Cardiovascular Exam
Cardiovascular Exam: regular rate/rhythm
Pulmonary Exam
Pulmonary Exam: lungs clear and no respiratory distress
Neurological Exam
Neurological Exam: alert, CN II-XII intact, no motor deficits, no sensory deficits and speech normal
Musculoskeletal Exam
Musculoskeletal Exam: full ROM and neuro vasc intact
Skin Exam
Skin Exam: normal color and warm/dry
Psychiatric Exam
Psychiatric Exam: normal mood/affect
Injury Course
Orders/Labs/Results
Orders:
Orders
06/10/25 18:35
EKG [Electrocardiogram (*1)] Urgent
Reason for Study: Fatigue / Weakness
06/10/25 18:36
EKG- Treatment ONCE
06/10/25 20:08
Foot, Left 3 View [CR Foot - Left Min 3 Views] Urgent
Comment:
Reason For Exam: fall
Tib/Fib, Left 2 View [CR Leg Tibia/fibula Left 2 Vw] Urgent
Comment:
Reason For Exam: fall
06/10/25 21:41
Interrogate Pacemaker- Treatment ONCE
06/10/25 21:42
CT Head W/o Iv Contrast Urgent
Comment:
Reason For Exam: fall
06/10/25 22:09
Complete Blood Count/With Diff Urgent
Comprehensive Metabolic Panel Urgent
Digoxin Urgent
06/10/25 23:38
Ortho Boot Left- Treatment ONCE
Short or tall?: Tall
Abnormal Lab Results
06/10/25
22:09
Hct 52.1 H %
(39.0-52.0)
MCHC 31.3 L g/dL
(33.0-37.0)
Absolute Lymphs (auto) 1.0 L 10^3/uL
(1.2-3.4)
Absolute Monos (auto) 0.7 H 10^3/uL
(0.1-0.6)
Neutrophils % 75.4 H %
(42.2-75.2)
Lymphocytes % 12.9 L %
(20.5-51.1)
Digoxin 0.5 L ng/ml
(0.8-2.0)
06/10/25 22:09
06/10/25 22:09
*Radiology
Radiology exam reviewed: radiology read reviewed
*Pulse Oximetry
SaO2: 99
Oxygen Mode of Delivery: Room air
Patient hypoxic: no
*Critical Care Note
Total Time (30-74mins, 75-104mins- exclusive of procedures): Not Applicable
Update Note
Update Note:
Patient to the emergency department for evaluation after unwitnessed fall at alf. Patient states that he remembers fall, denies LOC. He complains of pain to his left lower leg. X-ray completed and reveals nondisplaced fracture of the
distal one third of the fibula. He was placed in an orthopedic boot and will follow-up with orthopedics. Vital signs are stable he remains afebrile labs reviewed no concerning findings. He is new to digoxin level drawn result of 0.5. He had a
pacemaker placed 4 days ago, pacemaker interrogated, no arrhythmia noted. Head CT negative for acute findings. Discussed x-ray CT and lab results with patient and daughter will be discharged back to alf will follow-up with his primary
care provider. Given number for orthopedics daughter will schedule appointment for this week for follow-up.
ED Attending Note
-
Portions of this chart may have been created with voice recognition software.� Occasional wrong word or��sound alike� substitutions may have occurred due to the inherent limitations of voice recognition software.
Discharge Plan
Departure
Patient Disposition: Assisted Living
Date of Disposition: 06/10/25
Time of Disposition: 23:39
Patient with high blood pressure during this ER visit?: No
Condition: Good
Covid-19: Not Applicable
Discharge Problem:
Fracture of distal end of left fibula
Instructions: Lower leg fracture, Preventing falls in adults
Prescriptions:
No Action
rosuvastatin 20 MG tablet
20 mg PO HS
sertraline 50 MG tablet
75 mg PO DAILY
ezetimibe 10 MG tablet
10 mg PO DAILY
triamcinolone acetonide 0.1 % Cream
1 applic TOPICAL BID Qty: 0
Rx Instructions:
apply to leg rash
multivitamin Tablet
1 tab PO DAILY
metoprolol succinate 100 mg Tablet Extended Release 24 Hr
100 mg PO DAILY
cholecalciferol (vitamin D3) [Vitamin D3] 50 mcg (2,000 unit) Capsule
50 mcg PO DAILY
acetaminophen [Acetaminophen Extra Strength] 500 mg tablet
1,000 mg PO Q6H
potassium chloride 20 mEq tablet,ER particles/crystals
20 meq PO DAILY
omeprazole 40 mg Capsule,Delayed Release(Dr/Ec)
40 mg PO DAILY
guar gum Packet
1 tbsp PO BID
gabapentin 300 mg Capsule
300 mg PO HS
Minerin Creme Cream
1 applic TOPICAL BID
ondansetron 4 mg tablet,disintegrating
8 mg PO Q8HPRN PRN (Reason: nausea)
lidocaine 4 % Adhesive Patch,Medicated
2 patch TOPICAL BID PRN (Reason: pain)
Saccharomyces boulardii 250 mg Capsule
250 mg PO BID
furosemide 40 mg Tablet
40 mg PO DAILY
Eliquis 5 mg Tablet
5 mg PO BID
digoxin 125 mcg (0.125 mg) Tablet
125 mcg PO NOON Qty: 30 5RF
Referrals:
Diallo Gaston MD [Active, Orthopedics] - Call in 1-3 days for appt
Sanjeev Whittington MD [Family Provider, Internal Medicine]
Interventions
Interventions:
*Risk Screen - Suicide Last Done: 06/10/25 18:29
*General Assessment Last Done: 06/10/25 20:18
*Neglect/Abuse Screening Last Done: 06/10/25 18:29
*ED- Fall Risk Assessment Last Done: 06/10/25 20:18
*ED COVID-19 Vaccine History Last Done: 06/10/25 20:18
*ED Influenza Vaccine History Last Done: 06/10/25 20:18
*Nursing Disposition Last Done: 06/11/25 01:57
ED-Musculoskeletal Assessment Last Done: 06/10/25 20:19
ED- Neurological Assessment Last Done: 06/10/25 20:19
ED-Skin Assessment Last Done: 06/10/25 20:19
Discharge Date and Time
Discharge Date/Time: 06/11/25 02:01
Print Language: DIVEHI
[2025-06-10 22:11] VITALS: BP 152/103
[2025-06-10 22:24] LABS: Hematocrit 52.1 % (39.0-52.0); Hemoglobin 16.3 g/dL (13.0-18.0); Mean Corp Hgb Conc. 31.3 g/dL (33.0-37.0); Mean Corpuscular Volume 91.6 fL (80.0-94.0); Nucleated Red Blood Cells % 0 % (-); Platelet Count 174 10^3/uL (130-400); Red Cell Dist. Width 13.3 % (11.5-14.5)
[2025-06-10 22:35] LABS: ALT (SGPT) 22 U/L (0-50); AST (SGOT) 28 U/L (17-59); Albumin 4.3 g/dl (3.5-5.0); Alkaline Phosphatase 99 U/L (38-126); Blood Urea Nitrogen 20 mg/dl (9-20); Calcium 9.8 mg/dl (8.4-10.2); Carbon Dioxide 29 mmol/L (22-30); Chloride 104 mmol/L (98-107); Digoxin 0.5 ng/ml (0.8-2.0); Estimated Creatinine Clearance 80 ml/min; Glucose 95 mg/dl (70-99); Potassium 4.6 mmol/L (3.5-5.1); Sodium 136 mmol/L (135-145); Total Protein 7.6 g/dl (6.3-8.2); eGFR > 60.00
[2025-06-10 23:31] VITALS: BP 134/58
[2025-06-11] VITALS: BP 134/66
[2025-06-11 01:00] VITALS: BP 145/73
[2025-06-11 01:46] VITALS: BP 142/71
== END 2025-06-11 02:01 ==
LOC: EMR 18:28
PROVIDERS: Nurse Practitioner; EMERGENCY PHYSICIAN Emergency Medicine; FAMILY PHYSICIAN Internal Medicine
DX: S82.832A Other fracture of upper and lower end of left fibula, initial encounter for closed fracture (principal); W19.XXXA Unspecified fall, initial encounter; E78.00 Pure hypercholesterolemia, unspecified; G47.30 Sleep apnea, unspecified; I11.0 Hypertensive heart disease with heart failure; I50.9 Heart failure, unspecified; I25.10 Atherosclerotic heart disease of native coronary artery without angina pectoris; I25.2 Old myocardial infarction; I48.0 Paroxysmal atrial fibrillation; Z95.0 Presence of cardiac pacemaker; Z95.5 Presence of coronary angioplasty implant and graft; Z90.49 Acquired absence of other specified parts of digestive tract
CPT/HCPCS: 99285; 70450; 73590; 73630; 80053; 80162; 85025; 93005

== ENCOUNTER 2025-06-26 02:55 | Observation (INO) | payer MEDICARE, BC, OTHER, SELFPAY ==
[2025-06-25 21:13] VITALS: BMI 37.5
[2025-06-25 21:17] VITALS: BP 122/81
[2025-06-25 21:36] LABS: Hematocrit 48.1 % (39.0-52.0); Hemoglobin 15.7 g/dL (13.0-18.0); Mean Corp Hgb Conc. 32.6 g/dL (33.0-37.0); Mean Corpuscular Volume 87.3 fL (80.0-94.0); Nucleated Red Blood Cells % 0 % (-); Platelet Count 181 10^3/uL (130-400); Red Cell Dist. Width 13.2 % (11.5-14.5)
[2025-06-25 22:00] VITALS: BP 103/73
[2025-06-25 22:09] LABS: ALT (SGPT) 19 U/L (0-50); AST (SGOT) 27 U/L (17-59); Albumin 3.7 g/dl (3.5-5.0); Alkaline Phosphatase 93 U/L (38-126); Blood Urea Nitrogen 19 mg/dl (9-20); Calcium 9.4 mg/dl (8.4-10.2); Carbon Dioxide 22 mmol/L (22-30); Chloride 106 mmol/L (98-107); Estimated Creatinine Clearance 79 ml/min; Glucose 153 mg/dl (70-99); Lipase 40 U/L (23-300); Potassium 4.9 mmol/L (3.5-5.1); Sodium 135 mmol/L (135-145); Total Protein 6.9 g/dl (6.3-8.2); eGFR > 60.00
[2025-06-25 23:00] VITALS: BP 117/77
--- NOTE | 2025-06-25 23:01 | ED.GENMED ---
History of Present Illness
<Divya Valle MD, Resident - Last Filed: 06/26/25 02:07>
General
Chief Complaint: Abdominal Symptoms
Source: patient
Exam Limitations: altered mental status
Time Seen by Provider: 06/25/25 22:36
Nursing documentation reviewed up to this point in time: agreed with
History of Present Illness
History of Present Illness:
79yo M with a hx of CAD, afib (on eliquis, digoxin, metoprolol), HLD, HTN, GERD, DM, diverticulosis who presents with chronic diarrhea/vomiting.
Pt unable to provide clear history - with slightly altered mentation, seeming to doze off between sentences & then answering a different question when redirected. Gives some responses with prolonged pauses.
Per patient, lives at [facility] (independent with nursing medical technologist clinical). Nursing staff today called 911 after he was noted to have vomiting & diarrhea. Pt unable to endorse how often he has vomited, but denies any blood in the vomit.
States that he currently feels nauseated. States that he has been able to keep up PO intake, although he is also worried about dehydration. States that he has diarrhea multiple times a day and that he has seen blood in the stool. Denies any
fevers/chills. Denies any shortness of breath or chest pain. States that he was here a few weeks ago (06/10) after having a fall where he fractured his L fibula and hit the back of his head. He has had these symptoms since then. Denies any abdominal
pain. States that he didn't have any worsening of sx, just that the sx have persisted.
CT head on 06/10 without ICH or skull fracture.
Past History
<Divya Valle MD, Resident - Last Filed: 06/26/25 02:07>
Past History
ED Past Medical History: Arrthythmia (afib, tahybradycardia syndrome), CAD, CHF, GERD, HTN, Hypercholesterolemia, NV and Other (sleep apnea, Pneumonia)
ED Past Surgical History: Cardiac (Stent LAD) and Cholecystectomy
Patient has exhibited threatening behavior?: No
PSI?: No
Social History
Tobacco: Non-smoker
Alcohol: None
Drug: None
Personal:
Living: alone
Employment: Employed
Family History
Family History: CAD
Review of Systems
<Divya Valle MD, Resident - Last Filed: 06/26/25 02:07>
Review of Systems
Unable to obtain full review of systems at this time due to: dementia
Constitutional: Reports no symptoms
EENT: Reports no symptoms
Respiratory: Reports no symptoms
Cardiac: Reports no symptoms
ABD/GI: Reports nausea, vomiting, diarrhea and bloody stools
: Reports no symptoms
Musculoskeletal: Reports no symptoms
Skin: Reports no symptoms
Neurological: Reports no symptoms
Psychiatric: Reports no symptoms
Phy Exam
<Divya Valle MD, Resident - Last Filed: 06/26/25 02:07>
General Physical Exam
General Presentation: mild distress
General age: appears stated age
General Skin: warm and dry
General Habitus: normal
General Mental: alert
Cardiovascular Exam
Cardiovascular Exam: tachycardia and other (distant heart sounds, difficult to auscultate )
Heart Sounds: distant
Pulmonary Exam
Pulmonary Exam: lungs clear (anteriorly ) and no respiratory distress
Gastrointestinal Exam
Gastrointestinal Exam: soft, non distended and tender (tender to palpation in epigastrium and LUQ ; no rebound, no guarding )
Neurological Exam
Neurological Exam: confused, expressive aphasia and other (speech slow, not able to give date or name )
Musculoskeletal Exam
Musculoskeletal Exam: edema (chronic venostatic changes bilat LE; LLE in ortho boot )
Skin Exam
Skin Exam: normal color
Psychiatric Exam
Psychiatric Exam: other (somnolent)
Course
<Divya Valle MD, Resident - Last Filed: 06/26/25 02:07>
Orders/Labs/Results
Orders:
Orders
06/25/25 21:16
Electrocardiogram (*1) Urgent
Reason for Study: Chest Pain
06/25/25 21:17
EKG- Treatment ONCE
06/25/25 21:26
Complete Blood Count/With Diff Urgent
Comprehensive Metabolic Panel Urgent
Lipase Urgent
06/25/25 23:26
STOOL [C difficile Antigen & Toxins] Stat
PAVEL Source: Feces/Stool
Specimen Description:
Stool for Occult Blood Routine
06/25/25 23:28
0.9% Sodium Chloride 500 ml [Nss] 500 ml IV BOLUS
Ondansetron Orally Disint [Zofran Odt (Orally Disintegrating)] 4 mg PO NOW STA
06/25/25 23:47
COVID-19 Antigen Stat
Source: Nasal Swab
Influenza A+B Rapid Molecular Urgent
PAVEL Source: Nasal Swab
Specimen Description:
06/25/25 23:55
Lactic Acid Urgent
06/25/25 23:56
Stool Culture Urgent
PAVEL Source: Feces/Stool
Specimen Description:
06/26/25 00:02
CT Abd/pelvis W Iv Cont Urgent
Reason For Exam: N/V/D
06/26/25 00:18
CT Head W/o Iv Contrast Urgent
Comment:
Reason For Exam: confusion, gen weakness
Abnormal Lab Results
06/25/25
21:26
MCHC 32.6 L g/dL
(33.0-37.0)
MPV 10.5 H fL
(7.4-10.4)
Absolute Neuts (auto) 8.4 H 10^3/uL
(1.4-6.5)
Absolute Lymphs (auto) 0.9 L 10^3/uL
(1.2-3.4)
Absolute Monos (auto) 0.8 H 10^3/uL
(0.1-0.6)
Neutrophils % 81.3 H %
(42.2-75.2)
Lymphocytes % 8.8 L %
(20.5-51.1)
Glucose 153 H mg/dl
(70-99)
06/25/25 21:26
06/25/25 21:26
Vital Signs
Initial and Last Documented VS:
Initial Vital Signs
Temp Pulse Resp BP Pulse Ox
97.9 F 105 18 122/81 95
06/25/25 21:17 06/25/25 21:17 06/25/25 21:17 06/25/25 21:17 06/25/25 21:17
Last Documented Vital Signs
Temp Pulse Resp BP Pulse Ox
97.9 F 107 18 96/71 95
06/25/25 21:17 06/26/25 01:00 06/25/25 21:17 06/26/25 01:00 06/26/25 01:00
<Niukra Burch, DO - Last Filed: 06/26/25 02:08>
Orders/Labs/Results
Orders:
Orders
06/25/25 21:16
Electrocardiogram (*1) Urgent
Reason for Study: Chest Pain
06/25/25 21:17
EKG- Treatment ONCE
06/25/25 21:26
Complete Blood Count/With Diff Urgent
Comprehensive Metabolic Panel Urgent
Lipase Urgent
06/25/25 23:26
STOOL [C difficile Antigen & Toxins] Stat
PAVEL Source: Feces/Stool
Specimen Description:
Stool for Occult Blood Routine
06/25/25 23:28
0.9% Sodium Chloride 500 ml [Nss] 500 ml IV BOLUS
Ondansetron Orally Disint [Zofran Odt (Orally Disintegrating)] 4 mg PO NOW STA
06/25/25 23:47
COVID-19 Antigen Stat
Source: Nasal Swab
Influenza A+B Rapid Molecular Urgent
PAVEL Source: Nasal Swab
Specimen Description:
06/25/25 23:55
Lactic Acid Urgent
06/25/25 23:56
Stool Culture Urgent
PAVEL Source: Feces/Stool
Specimen Description:
06/26/25 00:02
CT Abd/pelvis W Iv Cont Urgent
Reason For Exam: N/V/D
06/26/25 00:18
CT Head W/o Iv Contrast Urgent
Comment:
Reason For Exam: confusion, gen weakness
Abnormal Lab Results
06/25/25
21:26
MCHC 32.6 L g/dL
(33.0-37.0)
MPV 10.5 H fL
(7.4-10.4)
Absolute Neuts (auto) 8.4 H 10^3/uL
(1.4-6.5)
Absolute Lymphs (auto) 0.9 L 10^3/uL
(1.2-3.4)
Absolute Monos (auto) 0.8 H 10^3/uL
(0.1-0.6)
Neutrophils % 81.3 H %
(42.2-75.2)
Lymphocytes % 8.8 L %
(20.5-51.1)
Glucose 153 H mg/dl
(70-99)
06/25/25 21:26
06/25/25 21:26
Vital Signs
Initial and Last Documented VS:
Initial Vital Signs
Temp Pulse Resp BP Pulse Ox
97.9 F 105 18 122/81 95
06/25/25 21:17 06/25/25 21:17 06/25/25 21:17 06/25/25 21:17 06/25/25 21:17
Last Documented Vital Signs
Temp Pulse Resp BP Pulse Ox
97.9 F 107 18 96/71 95
06/25/25 21:17 06/26/25 01:00 06/25/25 21:17 06/26/25 01:00 06/26/25 01:00
<Divya Valle MD, Resident - Last Filed: 06/26/25 02:07>
MDM/Problems Addressed
Differential Diagnosis Includes:
Malaise/AMS ddx:
UTI
Hyponatremia, electrolyte imbalance
Dehydration
COVID/flu
Baseline dementia
Nausea/diarrhea ddx:
Viral gastroenteritis
Bacterial gastroenteritis
Diverticulosis
GERD
Obstruction/constipation with stool leakage around
MDM/Problems Addressed:
- EKG
- CBC, CMP
- UA w reflex
- Stool cx, stool occult blood, stool cdiff antigen/toxin
- 1L NSS
- Zofran 4mg
- DAMEON w hemoccult test
- CT a/p w IV contrast
<Divya Valle MD, Resident - Last Filed: 06/26/25 02:07>
*Pulse Oximetry
SaO2: 98
Oxygen Mode of Delivery: Room air
*EKG
Interpreted by ED Provider?: Yes
EKG Intrepretation Date: 06/25/25
Interpretation: abnormal
Comparison EKG: changes noted (increased HR by 40bpm)
Heart Rate: 106
Rate: tachycardiac
Rhythm: sinus
[place]: normal axis
Interval: first degree heart block
QRS Pattern: normal QRS
Ischemia: no ischemia
Data Reviewed
Review of Other/Old Records Reveals: Labs, Progress Notes and Discharge Summary
Source: patient and records
<Niurka Burch DO - Last Filed: 06/26/25 02:08>
*Radiology
Radiology exam reviewed: radiology read reviewed (CT of the head, CT abdomen pelvis showed no acute findings.)
*Pulse Oximetry
Patient hypoxic: no
*Locker Room Clerk Interpretation
Rate: tachycardiac
Interpretation: abnormal
Rhythm: sinus
*Critical Care Note
Total Time (30-74mins, 75-104mins- exclusive of procedures): Not Applicable
<Divya Valle MD, Resident - Last Filed: 06/26/25 02:07>
Update Note
Update Note:
No leukocytosis
AVSS
CMP wnl
12:15am
hemoccult very slightly positive
watery light brown stool on DAMEON
12:20am
Collateral from nursing staff at [facility] who called 911 - States that they called because patient was having acute vomiting all day and diarrhea, poor PO intake. These sx started this morning. Confirms that his current mental status (poor short term
memory, protracted responses, confusion) is c/w his baseline as of the last few months s/p fall. Confirms that he lives in independent apartment unit with visiting nursing throughout day.
2:00am
CT a/p without acute intraabdominal abnormalities
Lactic acid 1.6, not elevated
Presentation likely 2/2 acute viral gastroenteritis, but given patient significant generalized weakness on exam will plan to admit
ED Attending Note
<Divya Valle MD, Resident - Last Filed: 06/26/25 02:07>
-
Portions of this chart may have been created with voice recognition software.� Occasional wrong word or��sound alike� substitutions may have occurred due to the inherent limitations of voice recognition software.
<Niurka Burch DO - Last Filed: 06/26/25 02:08>
ED Attending Note
Patient seen and examined by attending physician: Yes
I performed the substantive portion of visit, reviewed & personally made and approve the management plan that is documented in note by myself or BRAEDEN.: Yes
ED Attending Note:
This is a 79-year-old gentleman with history of mild dementia/mild cognitive impairment, obstructive sleep apnea, CAD, hypertension, A-fib chronically maintained on Eliquis, hyperlipidemia, sick sinus syndrome status post pacemaker insertion
June 07. He then suffered a fall June 10 with distal left fibula fracture. Has been maintained in a walking boot.
He resides in an assisted living apartment.
He is brought to the ED via EMS. 911 call by assisted living nursing staff when they found that patient has had nausea, vomiting, diarrhea that began earlier today and has been persistent throughout the day.
Patient is a significantly poor historian. He is unsure as to when symptoms began.
Chronic urinary incontinence, wears adult diapers. There has been no reports of hematochezia nor hemoptysis. No report of fever. Currently denies abdominal pain.
Unclear if there is been others at the facility with similar symptoms.
Further information provided by telephone call to nurse at the facility. Nausea/vomiting/diarrhea symptoms began today and have been persistent throughout the day. There has been no witnessed falls.
Review of medication list, no recent antibiotic use.
79-year-old obese gentleman appears his stated age.
He is awake, mildly to moderately confused, somewhat pensive and slow to answer questions but following commands well and answering yes/no questions appropriately and appropriately. Overall poor historian as to recent events appears to have
significantly poor short-term memory.
HEENT: The head is normocephalic, atraumatic.
Heart is regular rhythm, mildly tachycardic.
Lungs are clear to auscultation. No respiratory distress.
Abdomen is rotund, soft, mild tenderness epigastric, left upper quadrant and mildly to the left mid abdomen. No rebound or guarding nor rigidity. Rectal exam by pharmacy intern, scant liquid brown stool that is weakly heme positive.
Extremities: Short walking boot in place left lower extremity.
Skin is warm and dry, normal color. Fair turgor.
Neuro: Awake and alert, oriented x 2. Poor short-term memory. No focal motor weakness however marked difficulty when patient attempts to sit himself up along with significant difficulty while attempting to roll over.
Acute nausea/vomiting/diarrhea. This may be viral versus foodborne illness. Other consideration is ischemic bowel, bowel obstruction, colitis, diverticulitis.
With persistence throughout the day today, must consider electrolyte abnormality, acute kidney injury/dehydration.
Weakly heme positive stools, concern for occult GI bleed/blood loss anemia.
Generalized weakness may be related to acute GI illness, electrolyte abnormality, dehydration. Must also consider CVA.
Confusion may be baseline but must also consider acute toxic metabolic encephalopathy related to GI illness, dehydration, CVA.
EKG shows sinus tachycardia with first-degree AV block. Left axis deviation, poor R wave progression V1 through V5. Sinus tachycardia is new compared to previous EKG June 10 which shows normal sinus rhythm at 66. Left axis deviation and poor
R wave progression similar and unchanged.
Clinically patient appears at least mildly dehydrated.
He remains hemodynamically stable.
Will initiate IV fluid bolus.
Labs thus far unremarkable.
Will check CT abdomen pelvis and due to moderate generalized weakness, significant confusion will check CT of the head.
Due to sinus tachycardia, nausea vomiting diarrhea, multiple risk factors for ASCVD, concern for ischemic bowel thus will check lactic acid along with CT abdomen pelvis with IV contrast.
02:00
CT of the head as well as CT abdomen pelvis showed no acute findings.
Lactic acid is normal.
Continues with mild sinus tachycardia.
Continues with moderate generalized weakness, again likely related to acute GI illness.
Nausea has improved after a dose of Zofran.
Will continue IV fluids and plan to admit to hospitalist service.
Discharge Plan
Departure
Presentation/result/management discussed w/ accepting MD/DO: Hospitalist
Condition: Fair
Discharge Problem:
Acute gastroenteritis, Generalized weakness
Prescriptions:
No Action
rosuvastatin 20 MG tablet
20 mg PO HS
sertraline 50 MG tablet
75 mg PO DAILY
ezetimibe 10 MG tablet
10 mg PO DAILY
triamcinolone acetonide 0.1 % Cream
1 applic TOPICAL BID Qty: 0
Rx Instructions:
apply to leg rash
multivitamin Tablet
1 tab PO DAILY
metoprolol succinate 100 mg Tablet Extended Release 24 Hr
100 mg PO DAILY
cholecalciferol (vitamin D3) [Vitamin D3] 50 mcg (2,000 unit) Capsule
50 mcg PO DAILY
acetaminophen [Acetaminophen Extra Strength] 500 mg tablet
1,000 mg PO Q6H
potassium chloride 20 mEq tablet,ER particles/crystals
20 meq PO DAILY
omeprazole 40 mg Capsule,Delayed Release(Dr/Ec)
40 mg PO DAILY
guar gum Packet
1 tbsp PO BID
gabapentin 300 mg Capsule
300 mg PO HS
Minerin Creme Cream
1 applic TOPICAL BID
ondansetron 4 mg tablet,disintegrating
8 mg PO Q8HPRN PRN (Reason: nausea)
lidocaine 4 % Adhesive Patch,Medicated
2 patch TOPICAL BID PRN (Reason: pain)
Saccharomyces boulardii 250 mg Capsule
250 mg PO BID
furosemide 40 mg Tablet
40 mg PO DAILY
Eliquis 5 mg Tablet
5 mg PO BID
digoxin 125 mcg (0.125 mg) Tablet
125 mcg PO NOON Qty: 30 5RF
Referrals:
Sanjeev Whittington MD [Family Provider, Internal Medicine]
Interventions
Interventions:
*Risk Screen - Suicide Last Done: 06/25/25 21:21
*General Assessment Last Done: 06/25/25 21:21
*Neglect/Abuse Screening Last Done: 06/25/25 21:21
*ED COVID-19 Vaccine History Last Done: 06/25/25 21:19
*ED Influenza Vaccine History Last Done: 06/25/25 21:[address]
[facility] Fall Risk Assessment Tool Last Done: 06/25/25 21:13
GB-Swkuyu-Zcyhhvrspa Assessment Last Done: 06/25/25 21:23
Discharge Date and Time
Print Language: ESTONIAN
[2025-06-25] MEDS: ZOFRAN ODT (ORALLY DISINTEGRATING) 4 MG PO (23:44)
[2025-06-25] MEDS: NSS 500 IV (23:44)
[2025-06-26] VITALS (10 sets, daily range): BP systolic 96–124; BP diastolic 71–88; PULSE 96–105; BMI 37.2
[2025-06-26 00:16] LABS: COVID-19 Antigen Negative (Negative)
--- NOTE | 2025-06-26 02:24 | HPS.HSE ---
Family Physician
-
Family Physician: Henrry Whittington
Chief Complaint
-
Vomiting and diarrhea
History of Present Illness
Patient is a 79-year-old male who has past medical history significant for CAD status post tenting, atrial fibrillation on Eliquis and digoxin, hyperlipidemia, hypertension, [id number] diabetes, obstructive sleep apnea, history of
diverticulosis presents to the emergency department with acute episode of vomiting and diarrhea from assisted living.
Patient is a poor historian and confused. Per [facility] staff this is his usual baseline. Is able to recall that he was sent to the emergency department to get help with hydration but is unable to tell me why needed at baseline of hospice. 1
point that he did state that he had diarrhea. He had multiple episodes of emesis and diarrhea beginning this morning. Has had no fevers or chills. He had no abdominal pain. Today was nonbloody and nonbilious emesis. Diarrhea was nonbloody.
On arrival in the emergency department he was afebrile, blood pressure was 110/73 and he was tachycardic to 108. He was satting 95% on room air. ECG showed sinus tachycardia at rate of 106 with 4 degree AV block.
CBC showed a white count of 10.3 otherwise unremarkable. Electrolytes were unremarkable, BUN and creatinine were 19 and 1.0. LFTs and lipase were unremarkable. COVID and flu test were negative.
CT of the head showed no acute abnormalities. CT of the abdomen pelvis with contrast�no bowel obstruction, status post cholecystectomy, normal appendix.
Medical History
Past Medical History
Past Medical History: Reports Other
Additional Past Medical History:
CAD
Primary hypertension
Hyperlipidemia
Chronic bilateral lower extremity stasis/lymphedema
Mood disorder
Suspected cognitive disorder/suspected dementia
Urinary incontinence
GERD
CKD stage IIIa
Past Surgical History: Reports Cardiac (LAD stent), Cholecystectomy and Orthopedic (Total replacement of left shoulder)
Social History
Unable to obtain full social history at this time due to: Dementia
Family History
Family History: Not pertinent
Allergies / Home Medications
Allergies reflects when Allergies were last updated in [facility].
Home Medications with original date entered in [facility]
Allergy/Medication List:
Allergies
Allergy/AdvReac Type Severity Reaction Status Date / Time
lisinopril Allergy Rash Verified 05/27/24 08:58
orange juice [Monona Juice] Allergy Rash Verified 05/27/24 08:58
Home Medications
rosuvastatin 20 mg tablet 20 mg PO DAILY High cholesterol 05/19/13
ezetimibe 10 mg tablet 10 mg PO DAILY High cholesterol 11/23/20
sertraline 50 mg tablet 75 mg PO DAILY mental health 11/23/20
triamcinolone acetonide 0.1 % topical cream 1 applic topical BID lower extremites ##0 02/28/22
acetaminophen 500 mg tablet (Acetaminophen Extra Strength) 1,000 mg PO Q6H Supplement 04/18/22
aspirin 81 mg tablet,delayed release 81 mg PO DAILY Blood clot prevention/tx 04/18/22
cholecalciferol (vitamin D3) 50 mcg (2,000 unit) capsule (Vitamin D3) 50 mcg PO DAILY Supplement 04/18/22
metoprolol succinate 100 mg tablet,extended release 24 hr 100 mg PO DAILY Blood pressure 04/18/22
multivitamin 1 tab PO DAILY Supplement 04/18/22
furosemide 80 mg tablet 80 mg PO UD 01/09/23
potassium chloride 20 mEq tablet,extended release(part/cryst) 20 meq PO DAILY 01/09/23
gabapentin 300 mg capsule 300 mg PO HS 05/27/24
guar gum 1 tbsp PO BID 05/27/24
lanolin alcohols-mineral oil-w.petrolatum-ceresin topical cream (Minerin Creme topical) 1 applic topical BID b/l lower legs 05/27/24
levofloxacin 500 mg tablet 500 mg PO DAILY 05/27/24
omeprazole 40 mg capsule,delayed release 40 mg PO DAILY 05/27/24
ondansetron 4 mg disintegrating tablet 8 mg PO Q8HPRN PRN nausea 05/27/24
Review of Systems
-
History Source: Custodial
Constitutional: Reports No Symptoms
EENT: Reports No Symptoms
Respiratory: Reports No Symptoms
Cardiac: Reports No Symptoms
Abdomen/GI: Reports Nausea, Vomiting and Diarrhea; Denies Abdominal Pain
: Reports No Symptoms
Musculoskeletal: Reports No Symptoms
Skin: Reports No Symptoms
Neurological: Reports No Symptoms
Endocrine: Reports No Symptoms
Hematologic/Lymphatic: Reports No Symptoms
Psych: Reports No Symptoms
Physical Exam
Vital Signs
Vital Signs
Temp Pulse Resp BP Pulse Ox
97.9 F 108 18 112/73 95
06/25/25 21:17 06/26/25 02:15 06/25/25 21:17 06/26/25 02:00 06/26/25 02:15
Physical Exam
General: Well Developed, Well Nourished, No Apparent Distress and Obese
HEENT: NormoCephalic, Moist mucous membranes and Atraumatic; No Oxygen
Respiratory: Clear
Cardiac: S1/S2 and Regular Rhythm; No Murmur or Rub
GI: Soft, Non Tender, Non Distended and Normal Bowel Sounds; No Organomegaly
Rectal: Brown
Musculoskeletal: No Clubbing, No Cyanosis, Edema, Left Lower Extremity (left leg in a boot, non-pitting edema) and Edema, Right Lower Extremity (non-pitting)
Skin: No Rash
Neuro: Awake, Oriented (Oriented to person only) and Nonfocal/grossly intact
Psych: Calm and Apparent Dementia
Laboratory Results
-
06/25/25 21:26
06/25/25 21:26
Laboratory Results
Lactic Acid 1.6 mmol/L (0.7-2.0) 06/26/25 00:18
Total Bilirubin 0.6 mg/dl (0.2-1.3) 06/25/25 21:26
AST 27 U/L (17-59) 06/25/25 21:26
ALT 19 U/L (0-50) 06/25/25 21:26
Alkaline Phosphatase 93 U/L (38-126) 06/25/25 21:26
Lipase 40 U/L (23-300) 06/25/25 21:26
Data Reviewed
-
CT Scan: Report Reviewed by me
Medical Tests (Nuc Med, Echo, EKG etc): Image Personally Visualized and interpreted
Lab Data: Labs Reviewed by me
Old Records: Reviewed
Impression/Plan
-
IMPRESSION:
79-year-old with past medical history significant for atrial fibrillation on anticoagulation, hypertension, hyperlipidemia, obesity, obstructive sleep apnea CAD status post stent who presents to the emergency department after multiple episodes for 4
watery diarrhea and vomiting from his living facility where he lives alone but does have visiting nurses for meds. Marylou nurse patient had multiple episodes of nonbloody and nonbilious emesis. In the Emergency Department he appeared dehydrated
with tachycardia at 104 sinus, blood pressure was 103 initially. He was weak on examination. He was afebrile. He had no leukocytosis. His labs were otherwise unremarkable. ECG was unremarked. CT of the head was unremarkable, CT of the abdomen
and pelvis was without any acute peritoneal findings. Patient is alert with poor memory and orientation and cannot provide reliable history however this appears to be his baseline according to the visiting nurse.
PLAN:
Abdominal symptoms -nausea vomiting diarrhea consistent with acute gastroenteritis. No findings of systemic infection. Stool culture and C. difficile pending.
� Admit to MedSurg observation
� Status post 500 cc bolus, will give 500 mL bolus
� Continue with antiemetics
� Will start Imodium as needed
� Hold furosemide for now
� Orthostatic vital signs
� Given weakness will get PT evaluation, case management
Atrial fibrillation
� Continue patient digoxin
� No current Eliquis order on pharmacy records, the patient's home list does not include Eliquis, will need to confirm in a.m. with the visiting nurse
� Continue metoprolol succinate with hold parameters
CAD
� Continue patient's metoprolol
� Continue ezetimibe
QUENTIN-Unable to verify CPAP use
� Oxygen at bedtime as needed for now
DVT prophylaxis�on Eliquis
CODE STATUS�full code
[2025-06-26] MEDS: NSS 500 IV (03:49)
--- NOTE | 2025-06-26 04:05 | PTCARENOTE ---
Patient received from ED via stretcher. Patient was pulled over to the bed. Patient was AAOx2, vital signs stable, and no complaints of pain. Patient oriented to room and call shaw within reach.
[2025-06-26] MEDS: PROTONIX 40 MG PO (08:11)
[2025-06-26] MEDS: ZOLOFT 75 MG PO (08:12)
[2025-06-26] MEDS: TOPROL XL PO (08:20)
[2025-06-26 08:55] LABS: Hematocrit 46.5 % (39.0-52.0); Hemoglobin 15.0 g/dL (13.0-18.0); Mean Corp Hgb Conc. 32.3 g/dL (33.0-37.0); Mean Corpuscular Volume 88.9 fL (80.0-94.0); Platelet Count 171 10^3/uL (130-400); Red Cell Dist. Width 13.3 % (11.5-14.5)
[2025-06-26 09:24] LABS: Blood Urea Nitrogen 21 mg/dl (9-20); Calcium 9.1 mg/dl (8.4-10.2); Carbon Dioxide 24 mmol/L (22-30); Chloride 106 mmol/L (98-107); Estimated Creatinine Clearance 78 ml/min; Glucose 121 mg/dl (70-99); Potassium 4.9 mmol/L (3.5-5.1); Sodium 136 mmol/L (135-145); eGFR > 60.00
--- NOTE | 2025-06-26 09:59 | W.PN.HOSP.TC ---
Addendum entered and electronically signed by Bill Daly DO 06/26/25 13:25:
Left a voicemail for his daughter Ana Luisa to call me back.
Original Note:
Today's Communication/Plan
-
IV Unasyn
Eliquis
PT/OT
Assessment / Plan
Assessment / Plan
Gen-AAOx3, NAD
HEENT-NC, AT, anicteric, clear oral mm
Neck-supple
CV-reg, no M, +S1/S2
Lungs-clear B/L
Abd-soft, mild left lower quadrant tenderness without guarding or rebound
Ext-no edema
Musculoskeletal-no cyanosis, clubbing
Skin-warm and dry
Neuro-grossly non-focal
Psych-calm, cooperative
Acute sigmoid diverticulitis -characterized as mild on CT. No abscess. Start IV Unasyn, continue diet as tolerated.
Not sure how much of his symptoms were gastroenteritis related versus diverticulitis.
Continue antiemetics as needed.
Paroxysmal atrial fibrillation -resume Eliquis.
CAD -stable on meds.
Hyperlipidemia -rosuvastatin.
Essential hypertension -hypotension on arrival due to GI losses, volume depletion.
Chronic heart failure preserved EF -stable. Currently furosemide on hold due to volume depletion, GI losses.
QUENTIN
Tachybradycardia syndrome -underwent leadless pacemaker AV Micra on 06/06/2025.
Obesity due to excess calories
Dementia -unknown type.
Full code
Ambulatory dysfunction -PT/OT
Dispo -back to the [facility] when medically stable.
Anticipated Discharge: Within 24 hours
Subjective/Interval History
-
Date of Service: June 26, 2025
Patient seen/examined, mild nausea. Denies diarrhea, abdominal discomfort.
Objective Data
-
Labs:
Laboratory Results
06/25/25 06/26/25
21:26 07:44
WBC 9.5
Hgb 15.0
Hct 46.5
Plt Count 171
Sodium 135 136
Potassium 4.9 4.9
Chloride 106 106
Carbon Dioxide 22 24
BUN 19 21 H
Creatinine 1.0 1.0
Glucose 153 H 121 H
Calcium 9.4 9.1
Total Bilirubin 0.6
AST 27
ALT 19
Alkaline Phosphatase 93
Vital Signs:
Vital Signs
Temp Pulse Resp BP Pulse Ox
97.8 F 92 16 104/72 95
06/26/25 07:15 06/26/25 08:20 06/26/25 07:15 06/26/25 08:20 06/26/25 07:15
Review of Systems
-
History Source: Patient
All other systems: Reviewed and negative
[2025-06-26] MEDS: LANOXIN 125 MCG PO (10:55)
[2025-06-26] MEDS: ELIQUIS 5 MG PO ×2 (10:55→20:36)
[2025-06-26] MEDS: UNASYN IV ×3 (11:44→23:16)
[2025-06-26] MEDS: CRESTOR 20 MG PO (21:44)
[2025-06-27] MEDS: UNASYN IV ×2 (05:02→12:50)
[2025-06-27 06:00] VITALS: BMI 38.5
[2025-06-27 07:02] VITALS: BP 121/82
[2025-06-27] MEDS: TOPROL XL 100 MG PO (07:54)
[2025-06-27] MEDS: PROTONIX 40 MG PO (07:54)
[2025-06-27 07:55] VITALS: BP 135/93; BP 140/86; BP 154/98; PULSE 100; PULSE 107; PULSE 98
[2025-06-27] MEDS: ELIQUIS 5 MG PO (07:55)
[2025-06-27] MEDS: ZOLOFT 75 MG PO (07:55)
[2025-06-27 09:27] VITALS: BP 148/91; PULSE 93; O2SAT 94
--- NOTE | 2025-06-27 10:38 | W.PN.HOSP.TC ---
Today's Communication/Plan
-
Discharge
Assessment / Plan
Assessment / Plan
Gen-AAOx3, NAD
HEENT-NC, AT, anicteric, clear oral mm
Neck-supple
CV-reg, no M, +S1/S2
Lungs-clear B/L
Abd-soft, improved tenderness.
Ext-no edema
Musculoskeletal-no cyanosis, clubbing
Skin-warm and dry
Neuro-grossly non-focal
Psych-calm, cooperative
Acute sigmoid diverticulitis -characterized as mild on CT. No abscess. Clinically improved.
Not sure how much of his symptoms were gastroenteritis related versus diverticulitis.
Has not required antibiotics in 48 hours.
Transition to Augmentin on discharge. Outpatient follow-up with PCP.
Paroxysmal atrial fibrillation -continue Eliquis.
CAD -stable on meds.
Hyperlipidemia -rosuvastatin.
Essential hypertension -hypotension on arrival due to GI losses, volume depletion. Blood pressure now stable.
Chronic heart failure preserved EF -stable. Currently furosemide on hold due to volume depletion, GI losses.
QUENTIN
Tachybradycardia syndrome -underwent leadless pacemaker AV Micra on 06/06/2025.
Obesity due to excess calories
Dementia -unknown type.
Full code
Ambulatory dysfunction -PT/OT
Dispo -back to the [facility] today. Medically stable for discharge. Left [place] text for case management. Tried to call daughter Ana Luisa but got no response.
32 minutes spent in discharge process.
Anticipated Discharge: Today
Subjective/Interval History
-
Date of Service: June 27, 2025
Patient seen and examined. Feels better. No complaints.
Objective Data
-
Vital Signs:
Vital Signs
Temp Pulse Resp BP Pulse Ox
98.7 F 98 16 140/86 95
06/27/25 07:55 06/27/25 07:55 06/27/25 07:55 06/27/25 07:55 06/27/25 07:55
I&O
06/26/25 06/27/25 06/28/25
06:59 06:59 06:59
Intake Total 1800 / 1800
Balance 1800 / 1800
Review of Systems
-
History Source: Patient
All other systems: Reviewed and negative
--- NOTE | 2025-06-27 10:43 | W.DS.TRANS ---
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
-
Discharge Instructions:
Discharge Diagnosis/Procedures Acute diverticulitis
Diet Regular
Activity As tolerated
Driving Restrictions No driving
Bathing Restrictions None
Instructions:
Stand-Alone Forms:
Changes to Home Medications: No
Discharge Medications:
DC Medications w/original date entered in [facility]
rosuvastatin 20 mg tablet 20 mg PO HS High cholesterol 05/19/13
ezetimibe 10 mg tablet 10 mg PO DAILY High cholesterol 11/23/20
sertraline 50 mg tablet 75 mg PO DAILY depression/anxiety 11/23/20
triamcinolone acetonide 0.1 % topical cream 1 applic topical BID lower extremites ##0 02/28/22
acetaminophen 500 mg tablet (Acetaminophen Extra Strength) 1,000 mg PO Q6H Supplement 04/18/22
cholecalciferol (vitamin D3) 50 mcg (2,000 unit) capsule (Vitamin D3) 50 mcg PO DAILY Supplement 04/18/22
metoprolol succinate 100 mg tablet,extended release 24 hr 100 mg PO DAILY Blood pressure 04/18/22
multivitamin 1 tab PO DAILY Supplement 04/18/22
potassium chloride 20 mEq tablet,extended release(part/cryst) 20 meq PO DAILY Electrolyte Repletion 01/09/23
gabapentin 300 mg capsule 300 mg PO HS pain 05/27/24
guar gum 1 tbsp PO BID Constipation 05/27/24
lanolin alcohols-mineral oil-w.petrolatum-ceresin topical cream (Minerin Creme topical) 1 applic topical BID b/l lower legs 05/27/24
omeprazole 40 mg capsule,delayed release 40 mg PO DAILY Gastrointestinal Issue 05/27/24
ondansetron 4 mg disintegrating tablet 8 mg PO Q8HPRN PRN nausea 05/27/24
Saccharomyces boulardii 250 mg capsule 250 mg PO BID 06/06/25
apixaban 5 mg tablet (Eliquis) 5 mg PO BID 06/06/25
furosemide 40 mg tablet 40 mg PO DAILY 06/06/25
lidocaine 4 % topical patch 2 patch topical BID PRN pain 06/06/25
digoxin 125 mcg (0.125 mg) tablet 125 mcg PO NOON #30 tabs 06/07/25
amoxicillin 875 mg-potassium clavulanate 125 mg tablet 1 tab PO BID #12 tabs 06/27/25
Home Medication Changes
Pending Results: No
--- NOTE | 2025-06-27 12:09 | CM ---
Addendum entered by ANDREW Encarnacion 06/27/25 13:58:
Dg called back to get correct phone number to pay for w/c van.
referrals sent in allscripts for OT PT at [place] and RN from [facility].
Addendum entered by ANDREW Encarnacion 06/27/25 13:07:
left Vm for dgloi to ask her to call [phone] to pay by credit card fee of $105.00 for w/c van to [facility].
Called [facility] and gave w/c van picker packer.
Original Note:
Spoke to Rowdy at [facility] at [place] and to [facility]. Patient was at [facility] for 6-7 weeks rehab, then back to [facility]. Then patient fell, and had f/u with orthopedics. He has CAM boot on left foot. PT and OT saw patient. Recommend return to [facility]. Dgloi agrees with plan and agrees to w/c van transport. RN at [facility] and Rowdy at [facility] agree with w/c van. health information clerk to set up transport.
REviewed DUGAN with [facility] who said to ask patient to sign telling him I talked to her. CM attempted to get signature but patient kept bringing up if the [place] Unable to get signature.
Rowdy at [facility] asked CM to put in referral in [facility]port for [facility] and [facility] for therapy and nursing at [facility].
PLAN: back to [facility] today.
[2025-06-27] MEDS: LANOXIN 125 MCG PO (12:48)
--- NOTE | 2025-06-27 14:06 | PTCARENOTE ---
Attempted to call report to Declan at [place] @ [phone], spoke with Alyssa. Per Alyssa, internet and phone system at facility is down, and unable to give report to nurse receiving pt. They are aware of patient coming back to facility, was
told to fax discharge paperwork over and they are agreeable to just receiving paperwork with no report.
[2025-06-27 15:35] VITALS: BP 145/88
== END 2025-06-27 18:23 | disposition home health service (06) ==
LOC: 4 WEST ACU 02:55
PROVIDERS: Student in an Organized Health Care Education/Training Program; ADMITTING PHYSICIAN Internal Medicine; ATTENDING PHYSICIAN Hospitalist; EMERGENCY PHYSICIAN Emergency Medicine; FAMILY PHYSICIAN Internal Medicine
DX: K57.33 Diverticulitis of large intestine without perforation or abscess with bleeding (principal); I25.10 Atherosclerotic heart disease of native coronary artery without angina pectoris; Z79.01 Long term (current) use of anticoagulants; I48.0 Paroxysmal atrial fibrillation; E78.00 Pure hypercholesterolemia, unspecified; G47.33 Obstructive sleep apnea (adult) (pediatric); I50.32 Chronic diastolic (congestive) heart failure; N18.31 Chronic kidney disease, stage 3a; I13.0 Hypertensive heart and chronic kidney disease with heart failure and stage 1 through stage 4 chronic kidney disease, or unspecified chronic kidney disease; E11.22 Type 2 diabetes mellitus with diabetic chronic kidney disease; E66.09 Other obesity due to excess calories; Z68.38 Body mass index [BMI] 38.0-38.9, adult; K21.9 Gastro-esophageal reflux disease without esophagitis; R32 Unspecified urinary incontinence; I89.0 Lymphedema, not elsewhere classified; Z90.49 Acquired absence of other specified parts of digestive tract; Z96.612 Presence of left artificial shoulder joint; Z88.8 Allergy status to other drugs, medicaments and biological substances; Z79.82 Long term (current) use of aspirin; Z87.01 Personal history of pneumonia (recurrent); Z95.0 Presence of cardiac pacemaker; Z95.5 Presence of coronary angioplasty implant and graft; Z82.49 Family history of ischemic heart disease and other diseases of the circulatory system
CPT/HCPCS: 70450; 74177; 80048; 80053; 83605; 83690; 85025; 85027; 87070; 87147; 87502; 87811; 93005; 97163; 97167; 97535; 99285; G0378; Q9967

== ENCOUNTER 2025-07-06 18:28 | Inpatient (IN) | payer MEDICARE, BC, OTHER, SELFPAY ==
[2025-07-06] VITALS (8 sets, daily range): BP systolic 100–132; BP diastolic 70–95; BMI 35.4
[2025-07-06 15:39] LABS: Hematocrit 52.3 % (39.0-52.0); Hemoglobin 16.7 g/dL (13.0-18.0); Mean Corp Hgb Conc. 31.9 g/dL (33.0-37.0); Mean Corpuscular Volume 87.8 fL (80.0-94.0); Nucleated Red Blood Cells % 0 % (-); Platelet Count 179 10^3/uL (130-400); Red Cell Dist. Width 13.9 % (11.5-14.5)
[2025-07-06 15:53] LABS: ALT (SGPT) 30 U/L (0-50); AST (SGOT) 37 U/L (17-59); Albumin 3.7 g/dl (3.5-5.0); Alkaline Phosphatase 120 U/L (38-126); Blood Urea Nitrogen 17 mg/dl (9-20); Calcium 9.2 mg/dl (8.4-10.2); Carbon Dioxide 18 mmol/L (22-30); Chloride 103 mmol/L (98-107); Glucose 182 mg/dl (70-99); Potassium 4.4 mmol/L (3.5-5.1); Sodium 136 mmol/L (135-145); Total Protein 7.2 g/dl (6.3-8.2); eGFR > 60.00
--- NOTE | 2025-07-06 15:54 | ED.GENMED ---
History of Present Illness
General
Chief Complaint: Fainting/Passed Out
Source: patient
Exam Limitations: none
Time Seen by Provider: 07/06/25 15:24
Nursing documentation reviewed up to this point in time: agreed with
History of Present Illness
History of Present Illness:
79-year-old male with past medical history of hypertension, hyperlipidemia, CAD, pacemaker, diabetes, PTSD who presents to the emergency department from assisted [facility] ([facility]) for evaluation of flulike illness over the past
few days and syncopal episode today. Patient is a poor historian apparently has a history of mild cognitive impairment. I spoke to the nursing staff directly they report that for the past 2 days he has had URI symptoms, mild nausea and poor p.o.
intake. Today he was on the toilet and when they were transitioning him back to his wheelchair he went limp and was unresponsive for a minute or 2. EMS was called to bring him to hospital for assessment. Here in the ER patient says that he feels
generally well, mild nausea but denies any chest pain, abdominal pain, shortness of breath, dizziness. Son is at bedside says that he is at his baseline mental status has some baseline cognitive impairment. Son says that he has had multiple
falls/fainting episodes over the past few months and multiple visits to different ERs. He does have a boot on his left leg apparently from a fibular fracture suffered 2 weeks ago during one of these falls.
Past History
Past History
ED Past Medical History: Arrthythmia (afib, tahybradycardia syndrome), CAD, CHF, GERD, HTN, Hypercholesterolemia, DC and Other (sleep apnea, Pneumonia)
ED Past Surgical History: Cardiac (Stent LAD) and Cholecystectomy
Patient has exhibited threatening behavior?: No
PSI?: No
Social History
Tobacco: Non-smoker
Alcohol: None
Drug: None
Personal:
Living: alone
Employment: Employed
Family History
Family History: CAD
Review of Systems
Review of Systems
All Other Systems: ROS reviewed and negative except as documented in HPI and ROS
Constitutional: Reports fatigue
EENT: Reports runny nose
Respiratory: Reports cough; Denies trouble breathing
Cardiac: Denies chest pain
ABD/GI: Reports nausea; Denies abdominal pain, vomiting or diarrhea
: Denies flank pain
Neurological: Reports weakness (Generalized); Denies dizzy or headache
Phy Exam
Physical Exam
Physical Exam:
General: Awake, alert, oriented to person and place but not time; no acute distress
Head: Normocephalic, atraumatic
Eyes: Conjunctiva normal, pupils equal round and reactive to light bilaterally
Throat: Airway intact, handling secretions, dry mucous membranes
Neck: Trachea midline, no cervical spine tenderness
Lungs: Clear to auscultation bilaterally, no wheezing, rales, rhonchi; occasional cough; no significant tachypnea or hypoxia
Heart: Tachycardia with regular rhythm, no murmurs, gallops, or rubs; no chest wall tenderness noted
Abd: Soft, non distended, nontender
Neuro: Grossly intact, no focal motor or sensory deficit
Skin: Warm and dry
Extremities: Orthopedic boot noted on left lower extremity; extremities are warm and well-perfused
Scores
Heart Failure Risk
Heart Failure Risk Score: Not Applicable
Heart Score for Chest Pain Patients
STEMI patient?: Not applicable
Withdrawal Assessment of Alcohol
Withdrawal Assessment Completed?: Not applicable
Sepsis
Sepsis Screening
Sepsis Assessment: Sepsis Ruled Out
Sepsis Screen
Sepsis Screen: Sepsis Ruled Out
Date: 07/06/25
Time: 20:45
Course
Orders/Labs/Results
Orders:
Orders
07/06/25 Breakfast
Cholesterol Lowering
Cholesterol Lowering: Sodium, 2 Gram
07/06/25 15:16
Electrocardiogram (*1) Urgent
Reason for Study: Chest Pain
Cardiac Monitoring- Treatment ONCE
EKG- Treatment ONCE
IV Insert/Care/Rem.- Treatment PRN
07/06/25 15:22
COVID-19 Antigen Urgent
Source: Nasal Swab
Complete Blood Count/With Diff Urgent
Comprehensive Metabolic Panel Urgent
Troponin I Urgent
Influenza A+B Rapid Molecular Urgent
PAVEL Source: Nasal Swab
Specimen Description:
07/06/25 15:58
Interrogate Pacemaker- Treatment ONCE
07/06/25 16:42
0.9% Sodium Chloride 1000 ml [Nss] 1,000 ml IV BOLUS
07/06/25 16:43
CT Head W/o Iv Contrast Urgent
Comment:
Reason For Exam: syncope
07/06/25 16:54
CT Chest PE Study Urgent
Comment:
Reason For Exam: syncope, SOB/cough, tachycardia, tachypnea
07/06/25 17:42
Heparin 9,400 units IV NOW STA
Nursing to Place Non Medication Order As Directed
Physician Order: PTT 6 hours after initial start of Heparin infusion
Above order entered?: Yes
07/06/25 17:45
Heparin 04190 Units/250 ml 25,000 units in 250 ml IV PER PROTOCOL
Weight to be used for heparin protocol in kilograms (kg):: 117.3
Protocol:: DVT/PE
PTT Goal Range to be used:: PTT 73 to 111 seconds
Order type:: Initial
INITIAL Infusion Dose (UNITS/KG/hr) & then follow protocol:: 18 units/kg/hr
Infusion Dose in UNITS/hr & then follow protocol (UNITS/hr):: 2,000
INFUSION RATE in mL/hr & then follow protocol (mL/hr):: 20
For DVT/PE algorithm, re-bolus for low PTT?: Yes
PTT less than or equal to 64 seconds:: Re-bolus 80 units/kg (max 10,000units). Increase by 500 units/hr
(+ 5mL/hr)
PTT 64.1 to 72.9 seconds:: Re-bolus 40 units/kg (max 5,000 units). Increase by 200 units/hr
(+ 2mL/hr)
PTT 73 to 111 seconds:: Target Range. No change in rate.
PTT 111.1 to 130.9 seconds:: Decrease rate by 200 units/hr (- 2 mL/hr)
PTT 131 to 199.9 seconds:: HOLD for 1 hr. Then decrease by 400 units/hr (- 4mL/hr)
PTT greater than or equal to 200 seconds:: HOLD for 2 hrs & Notify Provider. Then decrease by 500 units/hr
(- 5mL/hr)
Lab follow-up:: Each change, PTT q6h until 2 consecutive are therapeutic. Then
PTT daily.
07/06/25 18:00
PTT Urgent
Comment: Obtain baseline before beginning heparin infusion if not already collected
07/06/25 18:01
Heparin 4,700 units IV PRN PRN
Heparin 9,400 units IV PRN PRN
07/06/25 18:17
Admit/Transfer Patient As Directed
Co-Sign Provider:
Level of Care: Inpatient admission
Assign to:: IMU- Intermediate Care
Physician / Group: yin
Diagnosis: PE
Reason for Hospitalization: PE
Expected length of stay greater than two midnights?: Yes
ELOS- Estimated Length of Stay in days: 3
I certify the patient meets the requirements for IP care: Yes
07/06/25 18:18
PRN Pain Medication Management As Directed
May give lesser potent ordered pain med per pt: Yes
preference::
Protocol:: Medication orders for pain may be administered in a
manner that supports deferring to patient preference
when the pt is:
- Requesting an ordered lesser potent pain medication.
Least to most potent pain medications are defined
as: acetaminophen < NSAID < tramadol < opioids
(morphine, oxycodone, hydromorphone).
- Requesting a lesser dose of the same medication IF
ORDERED.
- Requesting a less intrusive route of administration
if both routes are prescribed by the provider (PO <
IV).
07/06/25 18:19
Code Status As Directed
Resuscitation Status: Full Code
07/06/25 20:32
Acetaminophen [Tylenol] 650 mg PO Q4HPRN PRN
Saccharomyces Boulardii [Florastor] 250 mg PO BID
Triamcinolone Cream [Triamcinolone Acetonide 0.1% Cream] See Dose Instructions TOPICAL BID
07/06/25 20:32
Echo 2D MMode Color/Doppler Routine
Reason for Study: pulmonary embolism
IRAD CONSULT Routine
Consulting Provider: Noe Valera
Was physician already notified: Yes
Procedure being ordered, including laterality if applicable: lysis
Acknowledgement that appropriate orders are entered: Yes
PULMONARY CONSULT Routine
Consulting Provider: Jennifer Hannah
Was physician already notified: Yes
Glycohemoglobin (HgbA1c) Routine
Heparin Protocol- PTT Orders As Directed
PTT per Heparin protocol: -Obtain CBC and baseline PTT - if not already collected.
-Obtain PTT 6 hours from start of infusion. Then, every 6 hours until 2 consecutive
PTT's are therapeutic. Then, PTT Daily.
-With each rate change, obtain PTT every 6 hours until 2 consecutive PTT's are
therapeutic. Then, PTT Daily.
Activity As Directed
Activity Level: As Tolerated
Bladder Scan As Directed
Follow Bladder Retention/Intermittent Cath Algorithm?: Yes
Frequency: Per Retention Algorithm
Comment: as per intermittent urinary catheter algorithm
Bladder Scan As Directed
Follow Bladder Retention/Intermittent Cath Algorithm?: Yes
PRN if no void in __ hours: 6
Frequency: Per Retention Algorithm
If Bladder Scan Result >: 400
then:: Straight cath
Intake/ Output As Directed
Frequency: Per unit guidelines
Notify MD As Directed
Notify physician if: PTT is greater than or equal to 200.
Straight Cath As Directed
Frequency: Per Retention Algorithm
Additional Instructions: as per intermittent urinary catheter algorithm
Straight Cath As Directed
Frequency: Per Retention Algorithm
Additional Instructions: straight cath as needed per acute urinary retention algorithm for 24 hrs
Additional Instructions: for bladder scan greater than 400 mL
Vital Signs As Directed
Frequency: Per unit guidelines
Pt Eval And Treat Routine
Activity Level: As Tolerated
US Periph Venous LOWER Ext Scott Routine
Comment:
Reason For Exam: DVT/PE
07/06/25 22:00
Gabapentin [Neurontin] 300 mg PO HS
Rosuvastatin Calcium [Crestor] 20 mg PO HS
07/07/25 00:10
PTT IN AM
07/07/25 06:00
Dig [Digoxin] IN AM
07/07/25 08:00
Aspirin Low Dose EC [Aspir Low (Enteric Coated)] 81 mg PO DAILY
Ezetimibe [Zetia] 10 mg PO DAILY
Metoprolol Xl [Toprol Xl] 100 mg PO DAILY
Pantoprazole [Protonix] 40 mg PO DAILY
Psyllium [Metamucil, Konsyl] 1 packet PO DAILY
Sertraline HCl [Zoloft] 50 mg PO DAILY
nystatin 1 applic TOPICAL DAILY
07/07/25 12:00
Digoxin [Lanoxin] 125 mcg PO NOON
07/08/25 06:00
Complete Blood Count/No Diff Q2D
Comment: notify provider: Platelet count < 130,000 or decrease by 50% from baseline
07/08/25 08:00
Potassium Chloride [KCl] 20 meq PO DAILY
07/10/25 06:00
Complete Blood Count/No Diff Q2D
Comment: notify provider: Platelet count < 130,000 or decrease by 50% from baseline
07/12/25 06:00
Complete Blood Count/No Diff Q2D
Comment: notify provider: Platelet count < 130,000 or decrease by 50% from baseline
07/14/25 06:00
Complete Blood Count/No Diff Q2D
Comment: notify provider: Platelet count < 130,000 or decrease by 50% from baseline
07/16/25 06:00
Complete Blood Count/No Diff Q2D
Comment: notify provider: Platelet count < 130,000 or decrease by 50% from baseline
07/18/25 06:00
Complete Blood Count/No Diff Q2D
Comment: notify provider: Platelet count < 130,000 or decrease by 50% from baseline
07/20/25 06:00
Complete Blood Count/No Diff Q2D
Comment: notify provider: Platelet count < 130,000 or decrease by 50% from baseline
07/22/25 06:00
Complete Blood Count/No Diff Q2D
Comment: notify provider: Platelet count < 130,000 or decrease by 50% from baseline
Abnormal Lab Results
07/06/25 07/06/25
15:22 18:00
Hct 52.3 H %
(39.0-52.0)
MCHC 31.9 L g/dL
(33.0-37.0)
Absolute Neuts (auto) 7.3 H 10^3/uL
(1.4-6.5)
Absolute Monos (auto) 1.2 H 10^3/uL
(0.1-0.6)
Lymphocytes % 13.1 L %
(20.5-51.1)
Monocytes % 11.6 H %
(1.7-9.3)
APTT 35.6 H Sec
(23.4-35.0)
Carbon Dioxide 18 L mmol/L
(22-30)
Glucose 182 H mg/dl
(70-99)
07/06/25 15:22
07/06/25 15:22
Vital Signs
Initial and Last Documented VS:
Initial Vital Signs
BP
105/78
07/06/25 15:15
Last Documented Vital Signs
Temp Pulse Resp BP Pulse Ox
36.6 C 88 15 119/78 97
07/06/25 15:16 07/06/25 20:15 07/06/25 20:15 07/06/25 20:00 07/06/25 19:15
MDM/Problems Addressed
Differential Diagnosis Includes:
Syncope: Dehydration, dysrhythmia, valvular disease, brain bleed/stroke less likely clinically, lower suspicion for PE clinically
MDM/Problems Addressed:
79-year-old male presents for evaluation after syncopal episode in the setting of recent URI symptoms. He has had poor p.o. intake. He has apparently a history of multiple episodes of similar symptoms with repeated ED visits here and at [facility].
Vitals were significant for some mild tachycardia. Had some tachypnea in triage normalized by my assessment. Physical exam is as noted. Plan to check labs, viral swabs, chest x-ray, EKG. Will interrogate device. Provide some fluids. With
multiple falls check CT head. Overall suspect likely viral illness with some dehydration although given his cardiac history and multiple episodes would err towards admission for observation.
Labs reviewed: CBC unremarkable, CMP showed no clinically significant abnormalities. Troponin negative. Viral swabs were negative. EKG shows sinus rhythm. Device interrogation shows functional device but unfortunately no arrhythmia sensing with
his device and so unable to rule out arrhythmia. He remains mildly tachycardic and he does have some light tachypnea likely viral illness but lungs sound generally clear. Given his recent orthopedic injury with immobilization and multiple hospital
visits as well and general baseline immobilization he is at risk for PE�will check CT chest to rule this out.
CT head no acute abnormalities. CT callback by radiologist: Positive for saddle pulmonary embolism. Fortunately patient hemodynamically stable. His medication list includes Eliquis here but review of his medications from SNF show that he is no
longer on apixaban. Will plan to start on IV heparin. Will review case with interventional radiology and pulmonology (PERT alert). Discussed with hospitalist to facilitate admission.
Discussed case with pulmonology/financial dealers as well as interventional radiology�with stable hemodynamics and no increased oxygen requirement will treat with heparin for now�if any change in clinical status consider lysis. Updated hospitalist for
admission.
Chronic conditions affecting care:
CAD, hypertension, hyperlipidemia, pacemaker, cognitive deficit
*Radiology
Radiology exam reviewed: radiology read reviewed
*Pulse Oximetry
SaO2: 95
Oxygen Mode of Delivery: Room air
Patient hypoxic: no (95%)
*EKG
Interpreted by ED Provider?: Yes
Heart Rate: 107
Rate: tachycardiac
Rhythm: sinus tachycardia
[place]: normal axis
Interval: first degree heart block
QRS Pattern: normal QRS
Ischemia: non-specific ST changes
*Critical Care Note
Total Time (30-74mins, 75-104mins- exclusive of procedures): Not Applicable
Data Reviewed
Review of Other/Old Records Reveals: Labs and Records
Source: patient, family, ambulance crew and detention
Patient Management
Discussion with other providers: Hospitalist (Discussed with hospitalist), Distribution Systems Serviceperson (Discussed with homogenizer operator, interventional radiologist), Radiologist (Discussed with radiologist) and assisted staff (Discussed directly with detention
staff)
Escalation/DeEscalation of care consider admission/obs:
Admission indicated
ED Attending Note
-
Portions of this chart may have been created with voice recognition software.� Occasional wrong word or��sound alike� substitutions may have occurred due to the inherent limitations of voice recognition software.
Discharge Plan
Departure
Patient Disposition: Admit
Date of Disposition: 07/06/25
Time of Disposition: 17:44
Admit to doctor: Yin
Presentation/result/management discussed w/ accepting MD/DO: Hospitalist
Discharge Problem:
Pulmonary embolism
Interventions
Interventions:
*General Assessment Last Done: 07/06/25 15:16
*Neglect/Abuse Screening Last Done: 07/06/25 15:16
*ED COVID-19 Vaccine History Last Done: 07/06/25 15:16
*ED Influenza Vaccine History Last Done: 07/06/25 15:16
[facility] Fall Risk Assessment Tool Last Done: 07/06/25 15:16
*Risk Screen - Suicide (C-SSRS) Last Done: 07/06/25 15:16
*Nursing Disposition Last Done: 07/06/25 20:26
ED- Cardiac Assessment Last Done: 07/06/25 18:48
ED- Neurological Assessment Last Done: 07/06/25 18:48
Discharge Date and Time
Discharge Date/Time: 07/06/25 20:27
[2025-07-06 16:02] LABS: COVID-19 Antigen Negative (Negative)
[2025-07-06 16:03] LABS: Troponin I 0.032 ng/ml
[2025-07-06] MEDS: NSS 1000 IV (16:46)
--- NOTE | 2025-07-06 17:52 | HPS.HSE ---
Family Physician
-
Family Physician: Fletcher Del Cid
Chief Complaint
-
syncope
History of Present Illness
79-year-old male with past medical history of hypertension, hyperlipidemia, CAD, pacemaker, diabetes, PTSD who presents to the emergency department from detention facility ([facility]) for evaluation of flulike illness over the past
few days and syncopal episode today. patient is poor historian. he is not able to provide any meaningful story. as per son, he was on the toilet and when they were transitioning him back to his wheelchair he went limp and was unresponsive for a
minute or 2. for past two days, he was having cough and runny nose. he was not eating very well. he was nauseous. denied fever, chills, chest pain, sob. denied MCINTYRE, dizzy. denied abdominal pain,n,v.d denied dysuria or hematuria.
CT with PE. admitting for further management. he is on heparin drip.
Medical History
Past Medical History
Past Medical History: Reports Other
Additional Past Medical History:
Hypertension, ischemic hepatitis, goiter, hyperlipidemia, cellulitis of greater toe, colonic polyps, mild cognitive provide, type 2 diabetes, diverticulosis bilateral lower extremities edema, dementia, CKD, peripheral vascular disease
Past Surgical History: Reports Other
Additional Past Surgical History:
Cholecystectomy, LAD stent, finger release, surgery on right foot, skin graft, left shoulder replacement
Social History
Tobacco: Non-smoker
Alcohol: None
Drug: None
Personal: Single
Living: Assisted Living
Family History
Family History: Not pertinent
Allergies / Home Medications
Allergies reflects when Allergies were last updated in [employer].
Home Medications with original date entered in [employer]
Allergy/Medication List:
Allergies
Allergy/AdvReac Type Severity Reaction Status Date / Time
lisinopril Allergy Rash Verified 06/10/25 18:28
orange juice ([place] Juice) Allergy Rash Verified 06/10/25 18:28
Home Medications
rosuvastatin 20 mg tablet 20 mg PO HS High cholesterol 05/19/13
ezetimibe 10 mg tablet 10 mg PO DAILY High cholesterol 11/23/20
sertraline 50 mg tablet 50 mg PO DAILY depression/anxiety 11/23/20
triamcinolone acetonide 0.1 % topical cream 1 applic topical BID lower extremites ##0 02/28/22
acetaminophen 500 mg tablet (Acetaminophen Extra Strength) 1,000 mg PO Q6H Supplement 04/18/22
metoprolol succinate 100 mg tablet,extended release 24 hr 100 mg PO DAILY Blood pressure 04/18/22
multivitamin 1 tab PO DAILY Supplement 04/18/22
potassium chloride 20 mEq tablet,extended release(part/cryst) 20 meq PO DAILY Electrolyte Repletion 01/09/23
gabapentin 300 mg capsule 300 mg PO HS pain 05/27/24
omeprazole 40 mg capsule,delayed release 40 mg PO DAILY Gastrointestinal Issue 05/27/24
Saccharomyces boulardii 250 mg capsule 250 mg PO BID 06/06/25
furosemide 40 mg tablet 80 mg PO DAILY 06/06/25
digoxin 125 mcg (0.125 mg) tablet 125 mcg PO NOON #30 tabs 06/07/25
aspirin 81 mg tablet 81 mg PO DAILY 07/06/25
nystatin 100,000 unit/gram topical powder applic topical DAILY 07/06/25
psyllium husk 3.4 gram/5.4 gram oral powder (Metamucil) 1 tbsp PO DAILY 07/06/25
Review of Systems
-
Constitutional: Reports No Symptoms
EENT: Reports No Symptoms
Respiratory: Reports No Symptoms
Cardiac: Reports No Symptoms
Abdomen/GI: Reports No Symptoms
: Reports No Symptoms
Musculoskeletal: Reports No Symptoms
Skin: Reports No Symptoms
Neurological: Reports No Symptoms
Endocrine: Reports No Symptoms
Hematologic/Lymphatic: Reports No Symptoms
Psych: Reports No Symptoms
Physical Exam
Vital Signs
Vital Signs
Temp Pulse Resp BP Pulse Ox
97.9 F 102 25 132/95 94
07/06/25 15:16 07/06/25 16:30 07/06/25 16:30 07/06/25 16:00 07/06/25 16:30
Physical Exam
General: Well Developed, Well Nourished and No Apparent Distress
HEENT: NormoCephalic, Moist mucous membranes and Atraumatic
Respiratory: Clear
Cardiac: S1/S2 and Regular Rhythm; No Murmur or Rub
GI: Soft, Non Tender, Non Distended and Normal Bowel Sounds; No Organomegaly
Rectal: Deferred by Provider
Musculoskeletal: No Clubbing, No Cyanosis and No Edema
Skin: No Rash
Neuro: Nonfocal/grossly intact
Psych: Calm
Laboratory Results
-
07/06/25 15:22
07/06/25 15:22
Laboratory Results
Total Bilirubin 0.8 mg/dl (0.2-1.3) 07/06/25 15:22
AST 37 U/L (17-59) 07/06/25 15:22
ALT 30 U/L (0-50) 07/06/25 15:22
Alkaline Phosphatase 120 U/L (38-126) 07/06/25 15:22
Troponin I 0.032 ng/ml 07/06/25 15:22
Data Reviewed
-
CT Scan: Report Reviewed by me
Lab Data: Labs Reviewed by me
Impression/Plan
-
#saddle PE
-heparin drip continued
-IRAD consulted for lysis
-pulmonary consulted
-obtain ECHo and duplex.
-chest CT with Saddle pulmonary embolus extending from the distal main pulmonary artery into the right and left pulmonary arteries as well as the lobar and segmental pulmonary arteries bilaterally. There are findings of right heart strain with an RV
LV ratio of 1.75.
2. Within the posterior right lower lobe there are nodular and groundglass opacities as well as a small effusion. This is felt to most likely represent pulmonary infarction/hemorrhage in the setting of extensive pulmonary embolus. Infection is
considered less likely. Malignancy cannot be excluded. A follow-up is recommended to ensure resolution.
-head CT negative
# Sigmoid diverticulitis
-recently discharged on Augmentin
#Multiple fall
#ambulatory dysfunction
#fib fracture from previous fall
-PT/OT consulted
#Paroxysmal atrial fibrillation -continue metoprolol,digoxin
-EKg with sinus tachycardia.
-was on eliquis, which was discontinued due to multiple falls.
#CAD
-on asa
#Hyperlipidemia -rosuvastatin,Zetia continued
Essential hypertension -hypotension on arrival due to GI losses, volume depletion. Blood pressure now stable.
#Chronic heart failure preserved EF -stable
-lasix held
-strict I&O,daily weight
#GERD
-PPI continued
#Tachybradycardia syndrome -underwent leadless pacemaker AV Micra on 06/06/2025.
#Obesity due to excess calories
#Dementia -unknown type.
#Full code
#Ambulatory dysfunction -PT/OT
--- NOTE | 2025-07-06 18:02 | W.PN.UPDATE ---
Update Note
Progress Note Update
This is an addendum to H&P written by LAVERN Christiansen
I saw and examined the patient.
The AIR CHIPPER's note was reviewed and I agree with the note.
Comment:
Mr. Avery Zimmer is a 79 yo man with hx essential HTN, HLD, CAD, paroxysmal atrial fibrillation, PPM, HFpEF, mild cognitive impairment, recent non-displaced fibula fracture (06/10/25), recent admission 06/26-06/27 for acute diverticulitis, who
presents from SNF ([facility]) after syncopal episode today. He has had mild URI symptoms over the past 2 days including cough/congestion and mild nausea. When he was being transferred from toilet to wheelchair he became briefly
unresponsive.
Triage VS: T 36.6, P 102, RR 25, BP 132/95, SpO2 94%
On exam patient is in no distress; lungs clear, abdomen benign. LLE in boot from prior fracture.
LABS: WBC 10, Hg 16.7, PLT 179, Na 136, K+ 4.4, CO2 18, Cr 1.0, Ca 9.2, liver enzymes WNL
Covid and Flu negative
EKG: sinus tach at [address]
IMPRESSION:
No acute intracranial abnormality noted.
CHEST CT
IMPRESSION:
1. Saddle pulmonary embolus extending from the distal main pulmonary artery into the right and left pulmonary arteries as well as the lobar and segmental pulmonary arteries bilaterally. There are findings of right heart strain with an RV LV ratio of
1.75.
2. Within the posterior right lower lobe there are nodular and ground glass opacities as well as a small effusion. This is felt to most likely represent pulmonary infarction/hemorrhage in the setting of extensive pulmonary embolus. Infection is
considered less likely. Malignancy cannot be excluded. A follow-up is recommended to ensure resolution.
Saddle PE with evidence of right heart strain
Syncope 2/2 Above
-PERT alert called, given hemodynamic stability continue IV heparin gtt
-admit to IMU
-TTE
-formal pulmonary consult tomorrow
-hold Lasix
Atrial Fibrillation
-patient is not on Eliquis, like due to recent frequent falls
-no known episode of severe bleeding per son
-HUMAN RESOURCE CONSULTANT Digoxin
Tachy-Jaiden syndrome s/p PPM 06/06/25
GERD - HUMAN RESOURCE CONSULTANT PPI
HLD - HUMAN RESOURCE CONSULTANT Statin
HFpEF - hold Lasix for now as patient is preload dependent with large PE
Depression - HUMAN RESOURCE CONSULTANT Zoloft
Remainder of plan per AIR CHIPPER note
76 minutes spent on patient care
[2025-07-06] MEDS: HEPARIN 9400 UNITS IV (18:10)
[2025-07-06] MEDS: HEPARIN 25000 UNITS/250 ML IV (18:10)
[2025-07-06 18:26] LABS: APTT 35.6 Sec (23.4-35.0)
[2025-07-06] MEDS: FLORASTOR 250 MG PO (22:01)
[2025-07-06] MEDS: NEURONTIN 300 MG PO (22:01)
[2025-07-06] MEDS: TRIAMCINOLONE ACETONIDE 0.1% CREAM 1 APPLIC TOPICAL (22:02)
[2025-07-06] MEDS: CRESTOR 20 MG PO (22:02)
--- NOTE | 2025-07-06 23:47 | PTCARENOTE ---
Addendum entered by Abbi Smiley RN 07/07/25 05:40:
Pt was brought in with walking boot/brace on left foot.
Original Note:
Assumed care of Pt from ED RN. Pt currently on Heparin gtt at 20ml/hr. Pt AAOx self. Pt confused at times with pleasant demeanor. Education given to Pt about Heparin gtt,bleeding risk/ fall risk to explain bed alarm being on. Call shaw explained and
demonstrated. Pt able to teach back on remote to call for nurse. Pt having open areas on his bottom, stage 2 on scrotum and scattered bruising he says are from falls. Vitals stable at this time. Pt remains on ra at 95%. Pt has no complaints at this
time. Call shaw within reach. Bed in lowest position alarm on.
[2025-07-07] VITALS (27 sets, daily range): BP systolic 73–137; BP diastolic 46–110; PULSE 114; O2SAT 96; BMI 35.4
[2025-07-07 01:00] LABS: APTT > 200 Sec (23.4-35.0)
--- NOTE | 2025-07-07 01:08 | PTCARENOTE ---
PTT came back >200. ASSOCIATE MATERIAL HANDLER made aware. Protocol in place.
--- NOTE | 2025-07-07 05:37 | PTCARENOTE ---
Pt unable to void at this time. Pt has male PureWick in place. Bladder scan done resulting only 218. belly soft non tender. Pt has no complaints at this time. call shaw within reach. bed in lowest position alarm on.
[2025-07-07 06:15] LABS: Blood Urea Nitrogen 14 mg/dl (9-20); Calcium 7.5 mg/dl (8.4-10.2); Carbon Dioxide 20 mmol/L (22-30); Chloride 113 mmol/L (98-107); Digoxin 0.6 ng/ml (0.8-2.0); Estimated Creatinine Clearance 109 ml/min; Glucose 97 mg/dl (70-99); Potassium 3.6 mmol/L (3.5-5.1); Sodium 137 mmol/L (135-145); eGFR > 60.00
[2025-07-07 06:25] LABS: Hematocrit 39.5 % (39.0-52.0); Hemoglobin 12.6 g/dL (13.0-18.0); Mean Corp Hgb Conc. 31.9 g/dL (33.0-37.0); Mean Corpuscular Volume 88.6 fL (80.0-94.0); Platelet Count 136 10^3/uL (130-400); Red Cell Dist. Width 13.7 % (11.5-14.5)
--- NOTE | 2025-07-07 06:32 | PTCARENOTE ---
Pt morning labs resulting with significant drop in H&H. WINDOW SHADE CLOTH SEWER made aware TT.
[2025-07-07] MEDS: TOPROL XL 100 MG PO (08:30)
[2025-07-07] MEDS: PROTONIX 40 MG PO (08:30)
[2025-07-07] MEDS: ZETIA 10 MG PO (08:31)
[2025-07-07] MEDS: METAMUCIL, KONSYL 1 PACKET PO (08:31)
[2025-07-07] MEDS: ZOLOFT 50 MG PO (08:31)
[2025-07-07] MEDS: ASPIR LOW (ENTERIC COATED) 81 MG PO (08:31)
[2025-07-07] MEDS: TRIAMCINOLONE ACETONIDE 0.1% CREAM 1 APPLIC TOPICAL ×2 (08:31→19:53)
[2025-07-07] MEDS: FLORASTOR 250 MG PO ×2 (08:31→19:53)
--- NOTE | 2025-07-07 09:14 | CON.PUL ---
Consultation
Consultation Request
Date/Time Consultation Requested: 07/07/25
Date/Time Consultation Performed: 07/07/25
Performing Provider: Madiha
Reason for Consultation: PE
Medical History
-
History of Present Illness:
79-year-old male with previous history of hypertension, hyperlipidemia, CAD, pacemaker placement, diabetes presenting to ER for from [facility] facility for evaluation of flulike illness over the past few days and syncopal episode. Per
family, he was on the toilet when they were transitioning him back to his wheelchair and went limp and unresponsive for several minutes. He does not provide history due to history of dementia. Per the daughter, patient has had a history of
frequent falling with recent fracture to the left lower extremity 2 weeks prior. His Eliquis was on hold due to recent pacer placement as well which was unlikely resume. He is mostly sedentary, is in a wheelchair due to his ambulatory dysfunction.
In the ER, head CT demonstrating saddle pulmonary embolus extending from the distal main pulmonary artery into the right and left main with lobar and subsegmental pulmonary arteries bilaterally, evidence of right heart strain noted as well. There
are findings suggestive of pulmonary infarct, he is placed on IV heparin. PERT alert called, did not receive lysis. Admitted to IMU.
Denies prior known history of lung disease, lifelong non-smoker. No prior history of VTE.
Past Medical History
Past Medical History: Other (see list below)
Social History
Tobacco: Non-smoker
Alcohol: None
Drug: None
Allergies / Home Medications
Allergies
Allergy/AdvReac Type Severity Reaction Status Date / Time
lisinopril Allergy Rash Verified 06/10/25 18:28
orange juice ([place] Juice) Allergy Rash Verified 06/10/25 18:28
Home Medications
�Medication �Instructions �Recorded �Confirmed �Last Taken �Type
rosuvastatin 20 mg tablet 20 mg PO HS High cholesterol 05/19/13 07/06/25 06/05/25 21:00 History
ezetimibe 10 mg tablet 10 mg PO DAILY High cholesterol 11/23/20 07/06/25 06/06/25 08:00 History
sertraline 50 mg tablet 50 mg PO DAILY depression/anxiety 11/23/20 07/06/25 06/06/25 08:00 History
triamcinolone acetonide 0.1 % 1 applic topical BID lower 02/28/22 07/06/25 06/06/25 08:00 History
topical cream extremites ##0
acetaminophen 500 mg tablet 1,000 mg PO Q6H Supplement 04/18/22 07/06/25 Unknown History
(Acetaminophen Extra Strength)
metoprolol succinate 100 mg 100 mg PO DAILY Heart 04/18/22 07/06/25 06/06/25 08:00 History
tablet,extended release 24 hr Disease/Condition
multivitamin 1 tab PO DAILY Supplement 04/18/22 07/06/25 06/06/25 08:00 History
potassium chloride 20 mEq 20 meq PO DAILY Electrolyte 01/09/23 07/06/25 06/06/25 08:00 History
tablet,extended release(part/cryst) Repletion
gabapentin 300 mg capsule 300 mg PO HS pain 05/27/24 07/06/25 06/05/25 21:00 History
omeprazole 40 mg capsule,delayed 40 mg PO DAILY Gastrointestinal 05/27/24 07/06/25 06/06/25 08:00 History
release Issue
Saccharomyces boulardii 250 mg 250 mg PO BID Gastrointestinal 06/06/25 07/06/25 06/06/25 08:00 History
capsule Issue
furosemide 40 mg tablet 80 mg PO DAILY Fluid 06/06/25 07/06/25 06/06/25 08:00 History
Retention/Swelling
aspirin 81 mg tablet 81 mg PO DAILY Blood Clot 07/06/25 07/06/25 Unknown History
Prevention/Tx
digoxin 125 mcg (0.125 mg) tablet 125 mcg PO NOON Heart 07/06/25 07/06/25 Unknown History
Disease/Condition
nystatin 100,000 unit/gram topical applic topical DAILY Infection 07/06/25 Unknown History
powder
psyllium husk 3.4 gram/5.4 gram 1 tbsp PO DAILY Gastrointestinal 07/06/25 07/06/25 Unknown History
oral powder (Metamucil) Issue
Review of Systems
-
History Source: Patient and Family
All other systems: Negative unless noted
Vitals / Labs / Diagnostic Testing
Vital Signs
Temp Pulse Resp BP Pulse Ox
98.1 F 101 20 112/66 97
07/07/25 08:45 07/07/25 08:30 07/07/25 06:00 07/07/25 08:30 07/07/25 06:00
Lab Data
07/07/25 05:08
Laboratory Results
07/06/25 07/07/25
18:00 00:12
APTT 35.6 H > 200 H*
Microbiology
07/06/25 15:22 Nasal Swab Influenza Types A & B (KENDRA) - Final
Negative for Influenza A & B, NAAT
Negative results must be combined with clinical observations
and patient history.
Nucleic Acid Amplification test (NAAT)performed on the
[employer] platform.
Diagnostic Testing:
Physical Exam
-
HEENT: Normocephalic, Anicteric and Moist Mucous Membranes
Cardiovascular: S1/S2 and Regular Rhythm
Respiratory: Clear and Non-Labored Respirations
GI: Soft, Non Distended and Non Tender
Neurology: Awake, Alert, No Motor Deficits and Other (confused)
Skin: Warm and Dry
General: Comfortable and Other (NAD)
Assessment
-
79-year-old male with previous history of hypertension, hyperlipidemia, CAD, pacemaker placement, diabetes presenting to ER for from [place] [facility] for evaluation of flulike illness over the past few days and syncopal episode. Per
family, he was on the toilet when they were transitioning him back to his wheelchair and went limp and unresponsive for several minutes. He does not provide history due to history of dementia. In the ER, head CT demonstrating saddle pulmonary
embolus extending from the distal main pulmonary artery into the right and left main with lobar and subsegmental pulmonary arteries bilaterally, evidence of right heart strain noted as well. There are findings suggestive of pulmonary infarct, he is
placed on IV heparin. Admitted to IMU. We are consulted for evaluation.
Acute saddle extensive bilateral PE with right heart strain, submassive
Syncopal episode with unresponsiveness
Metabolic acidosis
Hyperglycemia
Conditions present prior to admission
Obstructive sleep apnea
Thyroid nodule
Trigger finger-R 4th digit s/p Finger Release
AFIB
Hypercholesterolemia
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
Diverticulosis
Essential hypertension
CAD S/P LAD stent placement 09/2009
History of noncompliance
LBP s/p Epidural L-4, L-5
Cholecystectomy
Surgery on R Foot
Skin Graft, Multiple Skin Cancers - Melanoma, Basal, Squamous Cell Carcinoma
Fractured Rib
L shoulder replaced
Ambulatory dysfunction w/ falls
Adm DH - cellulitis L foot and ankle. 11/2020
Obesity
Plan
No oxygen was needed on admission, currently saturating >90% on RA
Has no prior history of O2 use at home
Denies prior history of lung disease, lifelong nonsmoker
No prior VTE in past
Suspect patient has submassive PE due to risk factors including interruption of Eliquis, sedentary lifestyle, frequent ambulatory dysfunction, recent left lower extremity fracture, obesity
CXR/CT obtained indicating saddle pulmonary embolism, he is put on IV heparin, PERT alert called lysis not performed
Discussing case with IR if he would be a candidate for thrombectomy
I discussed with the daughter that the patient would need to be transition back to Eliquis--without interruption
IVC filter could be considered as well if he is at increased risk for bleeding with frequent falls
ECHO results pending, there was evidence of right heart strain on CT
Prior ECHO results are reviewed indicating stable function, mild aortic regurg
Monitor on telemetry
Weight loss measures recommended
Obesity likely contributing to respiratory symptoms
Will need outpatient pulmonary evaluation in our office for PFTs and 6MWT
Reviewed with patient and daughter
Risk factors assessed for underlying sleep disordered breathing also noted, recommend outpatient PSG/sleep evaluation
Will need PT/OT assessment as well
Underlying dementia as a complicating factor
Extensive time discussing with daughter and care team
We will follow
Diagnostic Data
Chest X-Ray: 06/07/25-The left cardiac device placement. No pneumothorax.
CT Scan: CHEST 07/06/25-1. Saddle pulmonary embolus extending from the distal main pulmonary artery into the right and left pulmonary arteries as well as the lobar and segmental pulmonary arteries bilaterally. There are findings of right heart
strain with an RV LV ratio of 1.75.
2. Within the posterior right lower lobe there are nodular and groundglass opacities as well as a small effusion. This is felt to most likely represent pulmonary infarction/hemorrhage in the setting of extensive pulmonary embolus. Infection is
considered less likely. Malignancy cannot be excluded. A follow-up is recommended to ensure resolution.
Echo: 05/30/24-Normal left ventricular size and systolic function. No regional wall motion abnormalities are seen. LV ejection fraction is 55-60% . Mild concentric left ventricular hypertrophy. Mild aortic regurgitation. Compared to previous
echocardiogram from February 08, 2020, there is no significant change. Previously aortic regurgitation was graded as trace.
PFT's:
Reports and relevant images were personally reviewed.
Total time spent on this consultation __75__ minutes which includes review of history, physical exam, medications, laboratory data, personal review of imaging, extensive review of outpatient records, discussion with care team and respiratory therapy.
[2025-07-07 09:31] LABS: Glycohemoglobin (HgbA1c) 6.1 % (4.0-5.9)
[2025-07-07] MEDS: HEPARIN 25000 UNITS/250 ML IV (10:12)
[2025-07-07 10:56] LABS: Hematocrit 47.6 % (39.0-52.0); Hemoglobin 15.1 g/dL (13.0-18.0)
[2025-07-07 11:05] LABS: APTT 157.2 Sec (23.4-35.0)
--- NOTE | 2025-07-07 11:46 | W.PN.HOSP.TC ---
Today's Communication/Plan
-
[facility] consultation for thrombectomy/thrombosis
Currently on IV heparin
Assessment / Plan
Assessment / Plan
Impression
Presentation with multiple syncope and tachycardia.
Saddle pulmonary embolus.
Right lower lobe opacification with concern for pulmonary infarct/pleural effusion
Acute on chronic anemia
Conditions prior to admission
Recent hospitalization for acute diverticulitis: Discharged 06/27/2025
Left fibula fracture, mechanical status post fall
Paroxysmal atrial fibrillation
Chronic CHF preserved EF
CAD
Essential hypertension
Dyslipidemia
Advanced dementia unspecified type
Imaging
CT scan of the chest
IMPRESSION:
1. Saddle pulmonary embolus extending from the distal main pulmonary artery into the right and left pulmonary arteries as well as the lobar and segmental pulmonary arteries bilaterally. There are findings of right heart strain with an RV LV ratio of
1.75.
2. Within the posterior right lower lobe there are nodular and groundglass opacities as well as a small effusion. This is felt to most likely represent pulmonary infarction/hemorrhage in the setting of extensive pulmonary embolus. Infection is
considered less likely. Malignancy cannot be excluded. A follow-up is recommended to ensure resolution.
Echo
1. Ejection fraction is greater than 75% by visual assessment.
2. Left ventricular cavity size is 2.90 cm which is small in size.
3. Right ventricular cavity size is severely dilated.
4. Right ventricular systolic function is moderately to severely decreased.
5. Mild tricuspid regurgitation. Estimated pulmonary artery pressure of 35 mmHg assuming a right atrial pressure of 3 mmHg.
6. Compared to a prior transthoracic echocardiogram study from 05/30/2024, the right ventricle is now severely dilated with significantly reduced systolic function.
Plan
Presentation with multiple syncopal episodes at the nursing facility, sinus tachycardia.
CT scan of the chest as above
Subtle likely submassive PE
Risk factors including limited mobility, recent left lower extremity trauma.
Recently on anticoagulation with Eliquis for atrial fibrillation with (discharged on 06/27/2025), reportedly interrupted at the nursing facility for fall risk.
Initially discussed as a PERT alert with decision to proceed with IV anticoagulation alone.
While on IV heparin, remains in stable respiratory status, although with marginal/soft blood pressure and tachycardic.
Follow-up echo as above.
Lower extremity Doppler pending
Discussed with pulmonology, [facility]. Plan is for thrombectomy.
Eventually transition back to oral anticoagulation with DOAC
Right lower lobe opacification
Differential diagnosis pulmonary infarct, hemorrhage plus minus pleural effusion.
Noted with drop in hemoglobin from 16-12.
Monitor closely with follow-up imaging and CBC.
Continue anticoagulation with caution
Incentive spirometer
Cardiovascular including:
� CAD.
� Chronic CHF preserved EF.
� Paroxysmal atrial fibrillation.
Continue metoprolol with caution for hypotension.
Resume digoxin (level on admission 0.6)
Continue statin
Dementia.
Depression/anxiety.
Continue Zoloft, Neurontin
Discussed with pulmonology, interventional radiology.
Discussed with patient's daughter at the bedside
Full code
Anticipated Discharge: > 48 hours
Subjective/Interval History
-
Date of Service: July 07, 2025
Objective Data
-
Labs:
Laboratory Results
07/07/25 07/07/25 07/07/25
00:12 05:08 10:29
WBC 7.0
Hgb 12.6 L D 15.1
Hct 39.5 47.6
Plt Count 136 D
APTT > 200 H* 157.2 H*
Sodium 137
Potassium 3.6
Chloride 113 H
Carbon Dioxide 20 L
BUN 14
Creatinine 0.7
Glucose 97
Calcium 7.5 L D
07/07/25
17:00
WBC
Hgb Pending
Hct Pending
Plt Count
APTT
Sodium
Potassium
Chloride
Carbon Dioxide
BUN
Creatinine
Glucose
Calcium
Vital Signs:
Vital Signs
Temp Pulse Resp BP Pulse Ox
98.1 F 104 21 98/73 95
07/07/25 08:45 07/07/25 11:25 07/07/25 11:25 07/07/25 11:25 07/07/25 11:29
I&O
07/06/25 07/07/25 07/08/25
06:59 06:59 06:59
Intake Total 400 / 400
Output Total 0 / 0
Balance 400 / 400
Physical Exam
-
General: Well Developed and No Apparent Distress
HEENT: Normocephalic, Atraumatic and Moist Mucous Membranes
Respiratory: Decreased Breath Sounds (At the right base); Negative Wheezes or Rales
Cardiac: Regular Rhythm and S1/S2; Negative Murmur, Rub or Gallop
GI: Soft, Nontender, Nondistended and Normal Bowel Sounds; Negative Organomegaly
Rectal: Deferred by Provider
Musculoskeletal: No Clubbing, No Cyanosis and No Edema
Skin: Negative Rash
Neuro: Nonfocal/Grossly Intact
--- NOTE | 2025-07-07 12:17 | WOUNDNOTE ---
[facility] RN NOTE: Reviewed chart, met with patient and spoke to daughter, Ana Luisa. Patient resides at [facility] and has had multiple hospital admissions and falls since April 2025. Patient with fracture and boot to left leg. Skin under boot is intact and
heels are blanchable red. Bilateral LE with venous stasis changes. Daughter reports patient now wears diapers instead of pull ups. Buttock skin with MASD and fungal appearing rash. Scrotum with areas of MASD and healing stage 2 PI vs MASD. Patient
is on a [employer] and turning schedule. Right heel off-loaded with pillow under right calf. Will confirm orders and sign off. LION Freeman given update.
--- NOTE | 2025-07-07 12:23 | WOUNDNOTE ---
HEALING STAGE 2 of [facility] 1946, [id number]
--- NOTE | 2025-07-07 12:24 | WOUNDNOTE ---
RIGHT UPPER LEG BRUISE POA
[2025-07-07] MEDS: LIDOCAINE 4% PATCH 1 PATCH TOPICAL (12:38)
[2025-07-07] MEDS: LANOXIN 125 MCG PO (12:39)
[2025-07-07] MEDS: TYLENOL 650 MG PO (12:39)
--- NOTE | 2025-07-07 14:50 | PTCARENOTE ---
Received pt on Heparin gtt at 1500 units, continue with heparin protocol, as documented intervention. Pt is alert but slow to respond and does not always comprehend the question or respond appropriately. He does struggle with . Daughter is at
bedside and pt is slow to respond to him as well and daughter reports his cognition has been on the decline.
--- NOTE | 2025-07-07 15:10 | PTCARENOTE ---
Patient in [facility], pt's son here at time of transport to [facility] and aware of plan of care. Pt's daughter assisted with consent via telephone with [facility] staff
--- NOTE | 2025-07-07 15:26 | PN.CDI ---
CDI
- -
CDI:
Physician Documentation Request
Admit Date: 07/06/25 18:28
Dear Doctor,
Patient admitted for PE.
07/07 Echo Report: 'Right ventricular cavity size is severely dilated. Right ventricular systolic function is moderately to severely decreased...Compared to a prior transthoracic echocardiogram study from 05/30/2024, the right ventricle is now
severely dilated with significantly reduced systolic function.'
07/07 Hospitalist PN: 'Subtle likely submassive PE...Discussed with pulmonology, [facility]. Plan is for thrombectomy.'
Based on the above, could you clarify in the progress notes, the appropriate diagnosis, if significant, that supports the above abnormalities and additional evaluation, monitoring and/or treatment rendered:
Pulmonary embolism with acute cor pulmonale
Pulmonary embolism without acute cor pulmonale
Other
Use of terms such as suspected, likely, concern for, or probable (associated with a specific diagnosis that is being evaluated, monitored, or treated as if it exists) are acceptable and can be coded in the inpatient setting, when documented at the
time of discharge.
Thank you,
Mery Irene RN, BSN
CDI Specialist
Available via [facility] text
Please use your independent medical judgment in providing your response.
--- NOTE | 2025-07-07 15:38 | W.PN.UPDATE ---
Update Note
Progress Note Update
Pulmonary arteriogram showed significant improvement on left side, but large embolus burden on right.
PA pressure measured 58/17 mean 30 mm Hg prior to embolectomy.
Removed a large amount of embolus from right side (see photo). No need to do embolectomy on left due to small clot burden.
After embolectomy, pressure measured 47/17, mean 26.
Bedrest for 2 hours. OK to restart heparin at around 5:30.
--- NOTE | 2025-07-07 16:06 | CM ---
I.A: Completed By BLADIMIR Marcus.
Patient is from the [facility] at [facility], [facility] resident and typically AxO 3x with occasional pleasant confusion. DME: Wheelchair and [employer].
Patient typically ambulates short distances with a WW in his room. Patient had [facility] for wound care, hhad [facility] for PT, uses the [facility] currently.
PCP- Sanjeev Whittington
Rx- [facility]
Patient will need transport back, saw note that WC van was paid for by family last admission. PLAN: Home VN/PT at [facility] vs. SNF.
--- NOTE | 2025-07-07 16:06 | PTCARENOTE ---
Patient returned from [facility], rt groin site CDI, Heparin is not infusing. Pt lying flat in bed and instructed pt and pt's son that he is to remain flat until further orders
--- NOTE | 2025-07-07 16:55 | PTCARENOTE ---
Confirmed orders with Dr. Munoz, Heparin drip off for 2 hours and pt to lie flat for 2 hours from [id number]. Discussed resuming and managing the heparin gtt and follow up PTT with Pharmacist. at 1720 today we Will resume gtt at 1100 units (rate
which it was at before stopping and check PTT in 6 hours. Groin site remains clean dry intact. Rt lower extremity with palpable pedal pulses. No pain
[2025-07-07 18:59] LABS: Hematocrit 44.6 % (39.0-52.0); Hemoglobin 14.5 g/dL (13.0-18.0)
--- NOTE | 2025-07-07 19:19 | PTCARENOTE ---
Right venous groin site remains clean dry intact, pulses palpable, sensation intact. cap refill intact.
[2025-07-07] MEDS: DESENEX/MITRAZOL/ZEASORB 1 APPLIC TOPICAL (19:54)
[2025-07-07] MEDS: REMOVE LIDOCAINE PATCH 1 PATCH REMOVE (19:54)
[2025-07-07] MEDS: NEURONTIN 300 MG PO (21:38)
[2025-07-07] MEDS: CRESTOR 20 MG PO (21:39)
--- NOTE | 2025-07-07 22:45 | PTCARENOTE ---
Pt having B/L Periph Venous US resulting 'Thrombus in the left femoral, popliteal, and posterior tibial veins'. Pt continues on Heparin gtt per protocol. Pt repeat H&H unremarkable at this time.
[2025-07-08] VITALS (13 sets, daily range): BP systolic 34–149; BP diastolic 17–80; BMI 35.3
[2025-07-08 00:08] LABS: APTT 78.5 Sec (23.4-35.0)
[2025-07-08 07:17] LABS: APTT 60.2 Sec (23.4-35.0)
[2025-07-08 07:33] LABS: Blood Urea Nitrogen 18 mg/dl (9-20); Calcium 9.0 mg/dl (8.4-10.2); Carbon Dioxide 26 mmol/L (22-30); Chloride 102 mmol/L (98-107); Estimated Creatinine Clearance 76 ml/min; Glucose 98 mg/dl (70-99); Potassium 3.9 mmol/L (3.5-5.1); Sodium 135 mmol/L (135-145); eGFR > 60.00
[2025-07-08] MEDS: LIDOCAINE 4% PATCH 1 PATCH TOPICAL (08:02)
[2025-07-08] MEDS: ASPIR LOW (ENTERIC COATED) 81 MG PO (08:03)
[2025-07-08] MEDS: TOPROL XL 100 MG PO (08:03)
[2025-07-08] MEDS: PROTONIX 40 MG PO (08:03)
[2025-07-08] MEDS: KCL 20 MEQ PO (08:03)
[2025-07-08] MEDS: METAMUCIL, KONSYL 1 PACKET PO (08:03)
[2025-07-08] MEDS: ZETIA 10 MG PO (08:03)
[2025-07-08] MEDS: ZOLOFT 50 MG PO (08:03)
[2025-07-08] MEDS: FLORASTOR 250 MG PO ×2 (08:04→20:13)
[2025-07-08] MEDS: TRIAMCINOLONE ACETONIDE 0.1% CREAM 1 APPLIC TOPICAL ×2 (08:04→20:14)
[2025-07-08 08:18] LABS: Hematocrit 47.2 % (39.0-52.0); Hemoglobin 15.0 g/dL (13.0-18.0); Mean Corp Hgb Conc. 31.8 g/dL (33.0-37.0); Mean Corpuscular Volume 88.9 fL (80.0-94.0); Nucleated Red Blood Cells % 0 % (-); Platelet Count 184 10^3/uL (130-400); Red Cell Dist. Width 13.6 % (11.5-14.5)
[2025-07-08] MEDS: HEPARIN 9400 UNITS IV (09:03)
--- NOTE | 2025-07-08 09:15 | W.PN.PUL3 ---
Today's Communication / Plan
-
- Continue IV heparin for another 24 hours
- Transition to Eliquis 10 mg twice daily starting 07/09 if patient continues to be hemodynamically stable
- Outpatient follow-up with [facility] pulmonary clinic
Assessment
-
79-year-old male with previous history of hypertension, hyperlipidemia, CAD, pacemaker placement, diabetes presenting to ER for from longterm facility for evaluation of flulike illness over the past few days and syncopal episode. Per
family, he was on the toilet when they were transitioning him back to his wheelchair and went limp and unresponsive for several minutes. He does not provide history due to history of dementia. In the ER, head CT demonstrating saddle pulmonary
embolus extending from the distal main pulmonary artery into the right and left main with lobar and subsegmental pulmonary arteries bilaterally, evidence of right heart strain noted as well. There are findings suggestive of pulmonary infarct, he is
placed on IV heparin. Admitted to IMU. We are consulted for evaluation.
Acute saddle extensive bilateral PE with right heart strain, submassive
Syncopal episode with unresponsiveness
Metabolic acidosis
Hyperglycemia
Conditions present prior to admission
Obstructive sleep apnea
Thyroid nodule
Trigger finger-R 4th digit s/p Finger Release
AFIB
Hypercholesterolemia
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
Diverticulosis
Essential hypertension
CAD S/P LAD stent placement 09/2009
History of noncompliance
LBP s/p Epidural L-4, L-5
Cholecystectomy
Surgery on R Foot
Skin Graft, Multiple Skin Cancers - Melanoma, Basal, Squamous Cell Carcinoma
Fractured Rib
L shoulder replaced
Ambulatory dysfunction w/ falls
Adm - cellulitis L foot and ankle. 11/2020
Obesity
Plan
No oxygen was needed on admission, currently saturating 99% on room air
Has no prior history of O2 use at home
Denies prior history of lung disease, lifelong nonsmoker
No prior VTE in past
S/p IR guided thrombectomy on 07/07, doing well, pulmonary artery pressure improved postprocedure.
Continue IV heparin infusion for another 24 hours, anticipate transition to p.o. Eliquis starting 07/09
Patient will need long-term Eliquis therapy, outpatient follow-up with pulmonary clinic
Echo suggestive of severe RV dilation with decreased systolic function, related to acute PE. Patient s/p IR guided embolectomy.
Hemodynamically stable, not requiring any pressors. Work of breathing normal. No pedal edema on exam. No signs or symptom of cor pulmonale.
Weight loss measures recommended
Obesity likely contributing to respiratory symptoms
Will need outpatient pulmonary evaluation in our office for PFTs and 6MWT
Risk factors assessed for underlying sleep disordered breathing also noted, recommend outpatient PSG/sleep evaluation
Will need PT/OT assessment as well
Underlying dementia as a complicating factor
Diagnostic Data
Chest X-Ray: 06/07/25-The left cardiac device placement. No pneumothorax.
CT Scan: CHEST 07/06/25-1. Saddle pulmonary embolus extending from the distal main pulmonary artery into the right and left pulmonary arteries as well as the lobar and segmental pulmonary arteries bilaterally. There are findings of right heart
strain with an RV LV ratio of 1.75.
2. Within the posterior right lower lobe there are nodular and groundglass opacities as well as a small effusion. This is felt to most likely represent pulmonary infarction/hemorrhage in the setting of extensive pulmonary embolus. Infection is
considered less likely. Malignancy cannot be excluded. A follow-up is recommended to ensure resolution.
Echo: 05/30/24-Normal left ventricular size and systolic function. No regional wall motion abnormalities are seen. LV ejection fraction is 55-60% . Mild concentric left ventricular hypertrophy. Mild aortic regurgitation. Compared to previous
echocardiogram from February 08, 2020, there is no significant change. Previously aortic regurgitation was graded as trace.
PFT's:
Reports and relevant images were personally reviewed.
Total time spent on this consultation __45__ minutes which includes review of history, physical exam, medications, laboratory data, personal review of imaging, extensive review of outpatient records, discussion with care team and respiratory therapy.
Subjective Data
-
Date of Service:
Date of Service: July 08, 2025
Subjective:
Patient comfortable lying in bed in no acute distress.
Review of Systems
Genitourinary: Other (All 14 systems reviewed and negative except as stated above in the history of present illness.)
Objective Data
Data Reviewed
Vital Signs / I&O / Oxygen:
Vital Signs
Temp Pulse Resp BP Pulse Ox
98.0 F 67 22 124/66 100
07/08/25 07:38 07/08/25 08:03 07/08/25 06:44 07/08/25 08:03 07/08/25 07:50
Intake and Output
07/07/25 07/08/25 07/09/25
06:59 06:59 06:59
Intake Total 400 / 400 840 / 840
Output Total 0 / 0 1100 / 1100
Balance 400 / 400 -260 / -260
SaO2 100
Nasal Cannula flow liters per 2
minute
Physical Exam
General: Comfortable
HEENT: Normocephalic
Cardiovascular: S1-S2
Respiratory: Clear
GI: Soft and Non Distended
Neurology: Awake and Alert
Skin: Warm
Labs/Micro/Reports
Lab Data
07/08/25 06:42
07/08/25 06:42
Laboratory Results
07/07/25 07/07/25 07/07/25
10:29 18:15 23:40
APTT 157.2 H* Cancelled 78.5 H
07/08/25
06:42
APTT 60.2 H
Microbiology
07/06/25 15:22 Nasal Swab Influenza Types A & B (KENDRA) - Final
Negative for Influenza A & B, NAAT
Negative results must be combined with clinical observations
and patient history.
Nucleic Acid Amplification test (NAAT)performed on the
[employer] platform.
[2025-07-08] MEDS: HEPARIN 25000 UNITS/250 ML IV (11:53)
[2025-07-08] MEDS: LANOXIN 125 MCG PO (12:04)
--- NOTE | 2025-07-08 13:54 | PTCARENOTE ---
Assumed care of pt at morning rounds, Pt awake and more alert than yesterday. He is still confused to place and time and struggles with answering simple questions. Heart rate NSR at this time. Received on oxygen 2L but have since weaned to room air.
Lungs diminished with coarse bases. Pedal pulses are assessed with doppler and all present. Popliteal pulses present with Doppler. Right foot is cool to touch, as it has been from baseline. Rt great toe discolored, Dr. Bustillo aware and assessed
during his rounds. Continue heparin gtt per protocol and adjusted per protocol. Pt's daughter called and provided with morning update and then she spoke with her father.
[2025-07-08 16:18] LABS: APTT > 200 Sec (23.4-35.0)
--- NOTE | 2025-07-08 16:58 | W.PN.HOSP.TC ---
Today's Communication/Plan
-
Assessment / Plan
Assessment / Plan
Impression
Presentation with multiple syncope and tachycardia.
Saddle pulmonary embolus.
Right lower lobe opacification with concern for pulmonary infarct/pleural effusion
Acute on chronic anemia
Conditions prior to admission
Recent hospitalization for acute diverticulitis: Discharged 06/27/2025
Left fibula fracture, mechanical status post fall
Paroxysmal atrial fibrillation
Chronic CHF preserved EF
CAD
Essential hypertension
Dyslipidemia
Advanced dementia unspecified type
Imaging
CT scan of the chest
IMPRESSION:
1. Saddle pulmonary embolus extending from the distal main pulmonary artery into the right and left pulmonary arteries as well as the lobar and segmental pulmonary arteries bilaterally. There are findings of right heart strain with an RV LV ratio of
1.75.
2. Within the posterior right lower lobe there are nodular and groundglass opacities as well as a small effusion. This is felt to most likely represent pulmonary infarction/hemorrhage in the setting of extensive pulmonary embolus. Infection is
considered less likely. Malignancy cannot be excluded. A follow-up is recommended to ensure resolution.
Echo
1. Ejection fraction is greater than 75% by visual assessment.
2. Left ventricular cavity size is 2.90 cm which is small in size.
3. Right ventricular cavity size is severely dilated.
4. Right ventricular systolic function is moderately to severely decreased.
5. Mild tricuspid regurgitation. Estimated pulmonary artery pressure of 35 mmHg assuming a right atrial pressure of 3 mmHg.
6. Compared to a prior transthoracic echocardiogram study from 05/30/2024, the right ventricle is now severely dilated with significantly reduced systolic function.
Plan
Presentation with multiple syncopal episodes at the nursing facility, sinus tachycardia.
CT scan of the chest as above
Subtle likely submassive PE
Risk factors including limited mobility, recent left lower extremity trauma.
Recently on anticoagulation with Eliquis for atrial fibrillation with (discharged on 06/27/2025), reportedly interrupted at the nursing facility for fall risk.
Initially discussed as a PERT alert with decision to proceed with IV anticoagulation alone.
While on IV heparin, remains in stable respiratory status, although with marginal/soft blood pressure and tachycardic.
Follow-up echo as above.
Lower extremity Doppler shows thrombus in the left femoral, popliteal, and posterior tibial veins
Status post mechanical thrombectomy 07/07 with large clot removed from right pulmonary artery with subsequent improvement in PA pressures and parenchymal perfusion
Eventually transition back to oral anticoagulation with DOAC, remains on IV heparin drip for now
Right lower lobe opacification
Differential diagnosis pulmonary infarct, hemorrhage plus minus pleural effusion.
Noted with drop in hemoglobin from 16-12, which seems to be aberrant possibly erroneous, hemoglobin stable at 15 today
Monitor closely with follow-up imaging and CBC.
Continue anticoagulation with caution
Incentive spirometer
Cardiovascular including:
� CAD.
� Chronic CHF preserved EF.
� Paroxysmal atrial fibrillation.
Continue metoprolol with caution for hypotension.
Resume digoxin (level on admission 0.6)
Continue statin
Dementia.
Depression/anxiety.
Continue Zoloft, Neurontin
Full code
Anticipated Discharge: 24 - 48 hours
Subjective/Interval History
-
Date of Service: July 08, 2025
Patient was seen and examined at bedside this morning. He underwent thrombectomy yesterday with large clot removal from right pulmonary artery. Remains hemodynamically stable.
Objective Data
-
Labs:
Laboratory Results
07/08/25 07/08/25
06:42 15:47
WBC 7.5
Hgb 15.0
Hct 47.2
Plt Count 184 D
APTT 60.2 H > 200 H*
Sodium 135
Potassium 3.9
Chloride 102
Carbon Dioxide 26
BUN 18
Creatinine 1.0
Glucose 98
Calcium 9.0 D
Vital Signs:
Vital Signs
Temp Pulse Resp BP Pulse Ox
98.6 F 65 20 126/80 100
07/08/25 15:01 07/08/25 12:04 07/08/25 12:00 07/08/25 12:00 07/08/25 13:53
I&O
07/07/25 07/08/25 07/09/25
06:59 06:59 06:59
Intake Total 400 / 400 840 / 840
Output Total 0 / 0 1100 / 1100
Balance 400 / 400 -260 / -260
Review of Systems
-
Unable to obtain full review of systems at this time due to: Dementia
Physical Exam
-
General: No Apparent Distress
HEENT: Normocephalic, Atraumatic and Moist Mucous Membranes
Cardiac: Regular Rhythm and S1/S2
GI: Soft and Nontender
Musculoskeletal: No Clubbing, No Cyanosis and No Edema
Skin: Warm and Dry
Neuro: Awake, Alert and Nonfocal/Grossly Intact
Psych: Calm
--- NOTE | 2025-07-08 18:41 | PTCARENOTE ---
Patient more confused this evening, Thinks he is at [facility] and needs redirection. Son in law here and reports this is pt's baseline and each hospitalization increases the confusion. Pt is fall risk and bed alarm is on
[2025-07-08] MEDS: REMOVE LIDOCAINE PATCH 1 PATCH REMOVE (22:16)
[2025-07-08] MEDS: NEURONTIN 300 MG PO (22:22)
[2025-07-08] MEDS: CRESTOR 20 MG PO (22:22)
[2025-07-09] VITALS (11 sets, daily range): BP systolic 130–160; BP diastolic 61–82; BMI 35.5
[2025-07-09 01:45] LABS: APTT 66.1 Sec (23.4-35.0)
[2025-07-09] MEDS: HEPARIN 4500 UNITS IV (02:06)
--- NOTE | 2025-07-09 07:30 | PTCARENOTE ---
Received pt @ change of shift. Pt. drowsy, awakens to verbal stim; oriented to self/situation; required reorientation to time/place; pleasant/forgetful; denies pain. SR on monitor. SpO2 94% on RA. +BS, abd round/obese; tolerating diet; req set up to
eat but feeds self; Inc b/b. Male purewick in place draining julio urine. Pt. assisted w active repositioning. R FA w heparin gtt- see flow sheet. Blood work drawn and sent to lab. Pt. instructed on how to report care concerns and call shaw
placed w in reach. Bed alarm active.
[2025-07-09] MEDS: METAMUCIL, KONSYL 1 PACKET PO (07:55)
[2025-07-09] MEDS: TOPROL XL 100 MG PO (07:55)
[2025-07-09] MEDS: ZETIA 10 MG PO (07:55)
[2025-07-09] MEDS: KCL 20 MEQ PO (07:55)
[2025-07-09] MEDS: FLORASTOR 250 MG PO ×2 (07:55→20:07)
[2025-07-09] MEDS: LIDOCAINE 4% PATCH 1 PATCH TOPICAL (07:56)
[2025-07-09] MEDS: PROTONIX 40 MG PO (07:56)
[2025-07-09] MEDS: DESENEX/MITRAZOL/ZEASORB 1 APPLIC TOPICAL (07:56)
[2025-07-09] MEDS: ZOLOFT 50 MG PO (07:56)
[2025-07-09] MEDS: ASPIR LOW (ENTERIC COATED) 81 MG PO (07:56)
[2025-07-09] MEDS: TRIAMCINOLONE ACETONIDE 0.1% CREAM 1 APPLIC TOPICAL ×2 (07:57→20:08)
[2025-07-09 08:24] LABS: APTT 164.5 Sec (23.4-35.0)
[2025-07-09] MEDS: LANOXIN 125 MCG PO (11:14)
[2025-07-09] MEDS: ELIQUIS 10 MG PO ×2 (11:14→20:07)
--- NOTE | 2025-07-09 11:20 | PTCARENOTE ---
pt. transitioned off heparin gtt to oral AC- see flow sheet/MAR.
--- NOTE | 2025-07-09 12:55 | W.PN.PUL3 ---
Today's Communication / Plan
-
- Continue Eliquis p.o.
- Discharge planning
- Outpatient follow-up with [facility] pulmonary clinic
- Pulmonary team will sign off, please call as needed
Assessment
-
79-year-old male with previous history of hypertension, hyperlipidemia, CAD, pacemaker placement, diabetes presenting to ER for from halfway facility for evaluation of flulike illness over the past few days and syncopal episode. Per
family, he was on the toilet when they were transitioning him back to his wheelchair and went limp and unresponsive for several minutes. He does not provide history due to history of dementia. In the ER, head CT demonstrating saddle pulmonary
embolus extending from the distal main pulmonary artery into the right and left main with lobar and subsegmental pulmonary arteries bilaterally, evidence of right heart strain noted as well. There are findings suggestive of pulmonary infarct, he is
placed on IV heparin. Admitted to IMU. We are consulted for evaluation.
Acute saddle extensive bilateral PE with right heart strain, submassive
Syncopal episode with unresponsiveness
Metabolic acidosis
Hyperglycemia
Conditions present prior to admission
Obstructive sleep apnea
Thyroid nodule
Trigger finger-R 4th digit s/p Finger Release
AFIB
Hypercholesterolemia
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
Diverticulosis
Essential hypertension
CAD S/P LAD stent placement 09/2009
History of noncompliance
LBP s/p Epidural L-4, L-5
Cholecystectomy
Surgery on R Foot
Skin Graft, Multiple Skin Cancers - Melanoma, Basal, Squamous Cell Carcinoma
Fractured Rib
L shoulder replaced
Ambulatory dysfunction w/ falls
Adm - cellulitis L foot and ankle. 11/2020
Obesity
Plan
No oxygen was needed on admission, currently saturating 99% on room air
Has no prior history of O2 use at home
Denies prior history of lung disease, lifelong nonsmoker
No prior VTE in past
S/p IR guided thrombectomy on 07/07, doing well, pulmonary artery pressure improved postprocedure.
Heparin has been transitioned to p.o. Eliquis, tolerating well. Work of breathing normal.
Patient will need long-term Eliquis therapy, outpatient follow-up with pulmonary clinic
Echo suggestive of severe RV dilation with decreased systolic function, related to acute PE. Patient s/p IR guided embolectomy.
Hemodynamically stable, not requiring any pressors. Work of breathing normal. No pedal edema on exam. No signs or symptom of cor pulmonale.
Weight loss measures recommended
Obesity likely contributing to respiratory symptoms
Will need outpatient pulmonary evaluation in our office for PFTs and 6MWT
Risk factors assessed for underlying sleep disordered breathing also noted, recommend outpatient PSG/sleep evaluation
Will need PT/OT assessment as well
Underlying dementia as a complicating factor
Diagnostic Data
Chest X-Ray: 06/07/25-The left cardiac device placement. No pneumothorax.
CT Scan: CHEST 07/06/25-1. Saddle pulmonary embolus extending from the distal main pulmonary artery into the right and left pulmonary arteries as well as the lobar and segmental pulmonary arteries bilaterally. There are findings of right heart
strain with an RV LV ratio of 1.75.
2. Within the posterior right lower lobe there are nodular and groundglass opacities as well as a small effusion. This is felt to most likely represent pulmonary infarction/hemorrhage in the setting of extensive pulmonary embolus. Infection is
considered less likely. Malignancy cannot be excluded. A follow-up is recommended to ensure resolution.
Echo: 05/30/24-Normal left ventricular size and systolic function. No regional wall motion abnormalities are seen. LV ejection fraction is 55-60% . Mild concentric left ventricular hypertrophy. Mild aortic regurgitation. Compared to previous
echocardiogram from February 08, 2020, there is no significant change. Previously aortic regurgitation was graded as trace.
PFT's:
Reports and relevant images were personally reviewed.
Total time spent on this consultation __43__ minutes which includes review of history, physical exam, medications, laboratory data, personal review of imaging, extensive review of outpatient records, discussion with care team and respiratory therapy.
Subjective Data
-
Date of Service:
Date of Service: July 09, 2025
Subjective:
Comfortably sitting in bed in no acute distress.
Review of Systems
Genitourinary: Other (All 14 systems reviewed and negative except as stated above in the history of present illness.)
Objective Data
Data Reviewed
Vital Signs / I&O / Oxygen:
Vital Signs
Temp Pulse Resp BP Pulse Ox
98.3 F 76 20 130/61 93
07/09/25 11:12 07/09/25 11:14 07/09/25 10:00 07/09/25 10:00 07/09/25 11:01
Intake and Output
07/08/25 07/09/25 07/10/25
06:59 06:59 06:59
Intake Total 840 / 840 1285 / 1285
Output Total 1100 / 1100 1000 / 1000
Balance -260 / -260 285 / 285
SaO2 93
Nasal Cannula flow liters per 2
minute
Physical Exam
General: Comfortable
HEENT: Normocephalic
Cardiovascular: S1-S2
Respiratory: Clear
GI: Soft and Non Distended
Neurology: Awake and Alert
Skin: Warm
Labs/Micro/Reports
Lab Data
07/08/25 06:42
07/08/25 06:42
Laboratory Results
07/08/25 07/09/25 07/09/25
15:47 01:08 07:47
APTT > 200 H* 66.1 H 164.5 H*
Microbiology
07/06/25 15:22 Nasal Swab Influenza Types A & B (KENDRA) - Final
Negative for Influenza A & B, NAAT
Negative results must be combined with clinical observations
and patient history.
Nucleic Acid Amplification test (NAAT)performed on the
[employer] platform.
--- NOTE | 2025-07-09 17:44 | W.PN.HOSP.TC ---
Today's Communication/Plan
-
Assessment / Plan
Assessment / Plan
Impression
Presentation with multiple syncope and tachycardia.
Saddle pulmonary embolus.
Right lower lobe opacification with concern for pulmonary infarct/pleural effusion
Acute on chronic anemia
Conditions prior to admission
Recent hospitalization for acute diverticulitis: Discharged 06/27/2025
Left fibula fracture, mechanical status post fall
Paroxysmal atrial fibrillation
Chronic CHF preserved EF
CAD
Essential hypertension
Dyslipidemia
Advanced dementia unspecified type
Imaging
CT scan of the chest
IMPRESSION:
1. Saddle pulmonary embolus extending from the distal main pulmonary artery into the right and left pulmonary arteries as well as the lobar and segmental pulmonary arteries bilaterally. There are findings of right heart strain with an RV LV ratio of
1.75.
2. Within the posterior right lower lobe there are nodular and groundglass opacities as well as a small effusion. This is felt to most likely represent pulmonary infarction/hemorrhage in the setting of extensive pulmonary embolus. Infection is
considered less likely. Malignancy cannot be excluded. A follow-up is recommended to ensure resolution.
Echo
1. Ejection fraction is greater than 75% by visual assessment.
2. Left ventricular cavity size is 2.90 cm which is small in size.
3. Right ventricular cavity size is severely dilated.
4. Right ventricular systolic function is moderately to severely decreased.
5. Mild tricuspid regurgitation. Estimated pulmonary artery pressure of 35 mmHg assuming a right atrial pressure of 3 mmHg.
6. Compared to a prior transthoracic echocardiogram study from 05/30/2024, the right ventricle is now severely dilated with significantly reduced systolic function.
Plan
Presentation with multiple syncopal episodes at the nursing facility, sinus tachycardia.
CT scan of the chest as above
Subtle likely submassive PE
Risk factors including limited mobility, recent left lower extremity trauma.
Recently on anticoagulation with Eliquis for atrial fibrillation with (discharged on 06/27/2025), reportedly interrupted at the nursing facility for fall risk.
Initially discussed as a PERT alert with decision to proceed with IV anticoagulation alone.
While on IV heparin, remains in stable respiratory status, although with marginal/soft blood pressure and tachycardic.
Follow-up echo as above.
Lower extremity Doppler shows thrombus in the left femoral, popliteal, and posterior tibial veins
Status post mechanical thrombectomy 07/07 with large clot removed from right pulmonary artery with subsequent improvement in PA pressures and parenchymal perfusion
Transition to Eliquis loading dose to continue through 07/15, start Eliquis 5 mg twice daily 07/16
- Medically stable for discharge, case management made aware, arrangements pending
Right lower lobe opacification
Differential diagnosis pulmonary infarct, hemorrhage plus minus pleural effusion.
Noted with drop in hemoglobin from 16-12, which seems to be aberrant possibly erroneous, hemoglobin now stable at 15
Monitor closely with follow-up imaging and CBC.
Continue anticoagulation with caution
Incentive spirometer
Cardiovascular including:
� CAD.
� Chronic CHF preserved EF.
� Paroxysmal atrial fibrillation.
Continue metoprolol with caution for hypotension.
Resume digoxin (level on admission 0.6)
Continue statin
Dementia.
Depression/anxiety.
Continue Zoloft, Neurontin
Full code
Anticipated Discharge: Within 24 hours
Subjective/Interval History
-
Date of Service: July 09, 2025
Patient was seen and examined at bedside. No acute events overnight. Comfortable. Starting anticoagulation with Eliquis, discontinue heparin drip.
Objective Data
-
Labs:
Laboratory Results
07/09/25
07:47
APTT 164.5 H*
Vital Signs:
Vital Signs
Temp Pulse Resp BP Pulse Ox
98.3 F 62 18 160/77 92
07/09/25 15:01 07/09/25 12:00 07/09/25 12:00 07/09/25 12:00 07/09/25 12:00
I&O
07/08/25 07/09/25 07/10/25
06:59 06:59 06:59
Intake Total 840 / 840 1285 / 1285
Output Total 1100 / 1100 1000 / 1000 700 / 700
Balance -260 / -260 285 / 285 -700 / -700
Review of Systems
-
History Source: Patient
All other systems: Reviewed and negative
Physical Exam
-
General: No Apparent Distress
Respiratory: Clear to Auscultation
Cardiac: Regular Rhythm
GI: Soft and Nontender
Musculoskeletal: No Clubbing and No Cyanosis
Skin: Warm and Dry
Neuro: Awake and Alert
Psych: Calm
[2025-07-09] MEDS: REMOVE LIDOCAINE PATCH 1 PATCH REMOVE (20:07)
--- NOTE | 2025-07-09 23:00 | PTCARENOTE ---
Received patient from [facility] RN at 1900, resting comfortably in bed. oriented to self and place, requires reorientation to situation and time. pleasant and cooperative, denies pain. SR on telemetry. Lungs dim on RA. ABd round, soft/nontender +BS.
Incont bowel and bladder. External cath in place draining julio urine. Assessment and VS trends documented in flowsheets. Call shaw within reach and use encouraged. Bed alarm active. Continuing with plan of care.
[2025-07-09] MEDS: CRESTOR 20 MG PO (23:06)
[2025-07-09] MEDS: NEURONTIN 300 MG PO (23:06)
[2025-07-10] VITALS (16 sets, daily range): BP systolic 133–164; BP diastolic 60–85; PULSE 60–65; O2SAT 96; BMI 35.0
[2025-07-10 05:31] LABS: Hematocrit 43.6 % (39.0-52.0); Hemoglobin 14.3 g/dL (13.0-18.0); Mean Corp Hgb Conc. 32.8 g/dL (33.0-37.0); Mean Corpuscular Volume 87.7 fL (80.0-94.0); Platelet Count 186 10^3/uL (130-400); Red Cell Dist. Width 13.5 % (11.5-14.5)
[2025-07-10] MEDS: METAMUCIL, KONSYL 1 PACKET PO (09:10)
[2025-07-10] MEDS: LIDOCAINE 4% PATCH 1 PATCH TOPICAL (09:10)
[2025-07-10] MEDS: ZETIA 10 MG PO (09:11)
[2025-07-10] MEDS: ELIQUIS 10 MG PO ×2 (09:11→20:52)
[2025-07-10] MEDS: TOPROL XL 100 MG PO (09:11)
[2025-07-10] MEDS: KCL 20 MEQ PO (09:11)
[2025-07-10] MEDS: FLORASTOR 250 MG PO ×2 (09:29→20:52)
[2025-07-10] MEDS: PROTONIX 40 MG PO (09:29)
[2025-07-10] MEDS: TRIAMCINOLONE ACETONIDE 0.1% CREAM 1 APPLIC TOPICAL ×2 (09:30→20:52)
[2025-07-10] MEDS: ZOLOFT 50 MG PO (09:30)
[2025-07-10] MEDS: ASPIR LOW (ENTERIC COATED) 81 MG PO (09:31)
[2025-07-10] MEDS: LANOXIN 125 MCG PO (13:04)
--- NOTE | 2025-07-10 14:18 | W.PN.HOSP.TC ---
Today's Communication/Plan
-
Physical therapy assessment
Discharge planing
Assessment / Plan
Assessment / Plan
Impression
Presentation with multiple syncope and tachycardia.
Saddle pulmonary embolus.
Right lower lobe opacification with concern for pulmonary infarct/pleural effusion
Acute on chronic anemia
Conditions prior to admission
Recent hospitalization for acute diverticulitis: Discharged 06/27/2025
Left fibula fracture, mechanical status post fall
Paroxysmal atrial fibrillation
Chronic CHF preserved EF
CAD
Essential hypertension
Dyslipidemia
Advanced dementia unspecified type
Imaging
CT scan of the chest
IMPRESSION:
1. Saddle pulmonary embolus extending from the distal main pulmonary artery into the right and left pulmonary arteries as well as the lobar and segmental pulmonary arteries bilaterally. There are findings of right heart strain with an RV LV ratio of
1.75.
2. Within the posterior right lower lobe there are nodular and groundglass opacities as well as a small effusion. This is felt to most likely represent pulmonary infarction/hemorrhage in the setting of extensive pulmonary embolus. Infection is
considered less likely. Malignancy cannot be excluded. A follow-up is recommended to ensure resolution.
Echo
1. Ejection fraction is greater than 75% by visual assessment.
2. Left ventricular cavity size is 2.90 cm which is small in size.
3. Right ventricular cavity size is severely dilated.
4. Right ventricular systolic function is moderately to severely decreased.
5. Mild tricuspid regurgitation. Estimated pulmonary artery pressure of 35 mmHg assuming a right atrial pressure of 3 mmHg.
6. Compared to a prior transthoracic echocardiogram study from 05/30/2024, the right ventricle is now severely dilated with significantly reduced systolic function.
Plan
Presentation with multiple syncopal episodes at the nursing facility, sinus tachycardia.
CT scan of the chest as above
Subtle likely submassive PE
Risk factors including limited mobility, recent left lower extremity trauma.
Recently on anticoagulation with Eliquis for atrial fibrillation with (discharged on 06/27/2025), reportedly interrupted at the nursing facility for fall risk.
Initially discussed as a PERT alert with decision to proceed with IV anticoagulation alone.
While on IV heparin, remains in stable respiratory status, although with marginal/soft blood pressure and tachycardic.
Follow-up echo as above.
Lower extremity Doppler shows thrombus in the left femoral, popliteal, and posterior tibial veins
Status post mechanical thrombectomy 07/07 with large clot removed from right pulmonary artery with subsequent improvement in PA pressures and parenchymal perfusion
Transition to Eliquis loading dose to continue through 07/15, start Eliquis 5 mg twice daily 07/16
- Medically stable for discharge, case management made aware, arrangements pending
Right lower lobe opacification
Differential diagnosis pulmonary infarct, hemorrhage plus minus pleural effusion.
Noted with drop in hemoglobin from 16-12, which seems to be aberrant possibly erroneous, hemoglobin now stable at 15
Monitor closely with follow-up imaging and CBC.
Continue anticoagulation with caution
Incentive spirometer
Cardiovascular including:
� CAD.
� Chronic CHF preserved EF.
� Paroxysmal atrial fibrillation.
Continue metoprolol with caution for hypotension.
Resume digoxin (level on admission 0.6)
Continue statin
Dementia.
Depression/anxiety.
Continue Zoloft, Neurontin
Full code
Anticipated Discharge: 24 - 48 hours
Subjective/Interval History
-
Date of Service: July 10, 2025
Objective Data
-
Labs:
Laboratory Results
07/10/25
04:54
WBC 6.4
Hgb 14.3
Hct 43.6
Plt Count 186
Vital Signs:
Vital Signs
Temp Pulse Resp BP Pulse Ox
98.5 F 64 17 139/66 98
07/10/25 11:19 07/10/25 09:11 07/10/25 06:19 07/10/25 09:11 07/10/25 06:19
I&O
07/09/25 07/10/25 07/11/25
06:59 06:59 06:59
Intake Total 1285 / 1285 300 / 300
Output Total 1000 / 1000 1300 / 1300
Balance 285 / 285 -1000 / -1000
Physical Exam
-
General: No Apparent Distress
Respiratory: Clear to Auscultation
Cardiac: Regular Rhythm
GI: Soft and Nontender
Musculoskeletal: No Clubbing and No Cyanosis
Skin: Warm and Dry
Neuro: Awake and Alert
Psych: Calm
--- NOTE | 2025-07-10 16:32 | CM ---
F/U: Hospitalist stated that patient is ready but pending PT/OT. PT/OT saw that patient and recommended SNF. RN stated that patient is not really able to have a fluid conversation so called the daughter (Dtr), Ana Luisa. Ana Luisa stated that her father
has been in/out of the hospital many times, was at to [facility] for 5 weeks not too long ago, did well there, went home and had a series of falls/ set backs. When asked for more facilities, Ana Luisa feels that if [facility] does not accept the patient
then call her back, then she may decide to send him back to [facility] where they can do Home PT/OT. PLAN: SNF vs. Home.
--- NOTE | 2025-07-10 17:21 | PTCARENOTE ---
Assumed care at 0700. Oriented to self and place, disoriented to time and forgetful to situation. Has been sitting in chair for approximately 3 hours this shift. Offers no complaints. Bed alarm monitoring d/t fall risk. Call shaw in reach.
[2025-07-10] MEDS: REMOVE LIDOCAINE PATCH 1 PATCH REMOVE (20:50)
[2025-07-10] MEDS: CRESTOR 20 MG PO (21:59)
[2025-07-10] MEDS: NEURONTIN 300 MG PO (21:59)
[2025-07-11] VITALS (13 sets, daily range): BP systolic 102–183; BP diastolic 64–124; PULSE 88; BMI 34.7
[2025-07-11] MEDS: PROTONIX 40 MG PO (09:22)
[2025-07-11] MEDS: KCL 20 MEQ PO (09:23)
[2025-07-11] MEDS: ZOLOFT 50 MG PO (09:23)
[2025-07-11] MEDS: ZETIA 10 MG PO (09:23)
[2025-07-11] MEDS: TOPROL XL 100 MG PO (09:23)
[2025-07-11] MEDS: ELIQUIS 10 MG PO (09:23)
[2025-07-11] MEDS: ASPIR LOW (ENTERIC COATED) 81 MG PO (09:23)
[2025-07-11] MEDS: LIDOCAINE 4% PATCH 1 PATCH TOPICAL (09:24)
[2025-07-11] MEDS: METAMUCIL, KONSYL 1 PACKET PO (09:24)
[2025-07-11] MEDS: FLORASTOR 250 MG PO (09:24)
[2025-07-11] MEDS: TRIAMCINOLONE ACETONIDE 0.1% CREAM 1 APPLIC TOPICAL (09:24)
--- NOTE | 2025-07-11 09:30 | PN.CDI ---
CDI
- -
CDI:
Physician Documentation Request
Admit Date: 07/06/25 18:28
Dear Doctor,
Patient admitted for pulmonary embolism.
07/07 Wound Care Note: 'Scrotum with areas of MASD and healing stage 2 PI vs MASD'
Physician documentation of the type and location of wounds is required for compliant documentation. Based on the above clinical findings and your assessment, please provide the following in your progress note:
1. Location of the ulcer/wound, including laterality.
2. Type (etiology) of ulcer/wound:
- Diabetic ulcer
- Arterial (ischemic) ulcer
- Traumatic wound
- Venous stasis ulcer
- Pressure (decubitus) ulcer
- Non-healing surgical wound
- Other
- Unable to determine
3. For a non-pressure ulcer, please indicate the depth/severity:
- Limited to the breakdown of skin
- With fat layer exposed
- With necrosis of muscle
- With necrosis of bone
- Other
- Unable to determine
4. If a pressure ulcer, please also include the stage* of the ulcer:
- Stage 1 - Skin intact, non-blanchable redness
- Stage 2 - Partial thickness loss of dermis, includes intact or open blister
- Stage 3 - Full thickness tissue not including bone, tendon or muscle
- Stage 4 - Full thickness tissue loss, including exposed bone, tendon or muscle
- Unstageable - Full thickness loss in which the base of the ulcer is covered by slough (yellow, sigala, pineda, green or brown) and/or eschar (sigala, brown or black) in the wound bed.
- Unable to determine
Use of terms such as suspected, likely, concern for, or probable (associated with a specific diagnosis that is being evaluated, monitored, or treated as if it exists) are acceptable and can be coded in the inpatient setting, when documented at the
time of discharge.
Thank you,
Mery Irene RN, BSN
CDI Specialist
Available via [place] text
Please use your independent medical judgment in providing your response.
*Source: National Pressure Ulcer Advisory Panel (NPUAP)
--- NOTE | 2025-07-11 09:38 | PN.CDI ---
CDI
- -
CDI:
Physician Documentation Request
Admit Date: 07/06/25 18:28
Dear Doctor,
Patient admitted for pulmonary embolism.
07/10 Hospitalist PN: 'Lower extremity Doppler shows thrombus in the left femoral, popliteal, and posterior tibial veins'
Clarify which of the following accurately represents the acuity of the thrombus. Possible options might include:
____ Acute
Acute on Chronic
____ Other
Use of terms such as suspected, likely, concern for, or probable (associated with a specific diagnosis that is being evaluated, monitored, or treated as if it exists) are acceptable and can be coded in the inpatient setting, when documented at the
time of discharge.
Thank you,
Mery Irene RN, BSN
CDI Specialist
Available via [place] text
Please use your independent medical judgment in providing your response.
--- NOTE | 2025-07-11 10:54 | W.PN.HOSP.TC ---
Today's Communication/Plan
-
Stable respiratory and hemodynamic status
PT assessment indicates appropriateness for [facility].
Assessment / Plan
Assessment / Plan
Impression
Presentation with multiple syncope and tachycardia.
Saddle pulmonary embolus.
Right lower lobe opacification with concern for pulmonary infarct/pleural effusion
Acute on chronic anemia
Conditions prior to admission
Recent hospitalization for acute diverticulitis: Discharged 06/27/2025
Left fibula fracture, mechanical status post fall
Paroxysmal atrial fibrillation
Chronic CHF preserved EF
CAD
Essential hypertension
Dyslipidemia
Advanced dementia unspecified type
Imaging
CT scan of the chest
IMPRESSION:
1. Saddle pulmonary embolus extending from the distal main pulmonary artery into the right and left pulmonary arteries as well as the lobar and segmental pulmonary arteries bilaterally. There are findings of right heart strain with an RV LV ratio of
1.75.
2. Within the posterior right lower lobe there are nodular and groundglass opacities as well as a small effusion. This is felt to most likely represent pulmonary infarction/hemorrhage in the setting of extensive pulmonary embolus. Infection is
considered less likely. Malignancy cannot be excluded. A follow-up is recommended to ensure resolution.
Echo
1. Ejection fraction is greater than 75% by visual assessment.
2. Left ventricular cavity size is 2.90 cm which is small in size.
3. Right ventricular cavity size is severely dilated.
4. Right ventricular systolic function is moderately to severely decreased.
5. Mild tricuspid regurgitation. Estimated pulmonary artery pressure of 35 mmHg assuming a right atrial pressure of 3 mmHg.
6. Compared to a prior transthoracic echocardiogram study from 05/30/2024, the right ventricle is now severely dilated with significantly reduced systolic function.
Plan
Presentation with multiple syncopal episodes at the nursing facility, sinus tachycardia.
CT scan of the chest as above
Subtle likely submassive PE
Risk factors including limited mobility, recent left lower extremity trauma.
Recently on anticoagulation with Eliquis for atrial fibrillation with (discharged on 06/27/2025), reportedly interrupted at the nursing facility for fall risk.
Initially discussed as a PERT alert with decision to proceed with IV anticoagulation alone.
While on IV heparin, remains in stable respiratory status, although with marginal/soft blood pressure and tachycardic.
Follow-up echo as above.
Lower extremity Doppler shows thrombus in the left femoral, popliteal, and posterior tibial veins
Status post mechanical thrombectomy 07/07 with large clot removed from right pulmonary artery with subsequent improvement in PA pressures and parenchymal perfusion
Transition to Eliquis loading dose to continue through 07/15, start Eliquis 5 mg twice daily 07/16
- Medically stable for discharge, case management made aware, arrangements pending
Right lower lobe opacification
Differential diagnosis pulmonary infarct, hemorrhage plus minus pleural effusion.
Noted with drop in hemoglobin from 16-12, which seems to be aberrant possibly erroneous, hemoglobin now stable at 15
Monitor closely with follow-up imaging and CBC.
Continue anticoagulation with caution
Incentive spirometer
Cardiovascular including:
� CAD.
� Chronic CHF preserved EF.
� Paroxysmal atrial fibrillation.
Continue metoprolol with caution for hypotension.
Resume digoxin (level on admission 0.6)
Continue statin
Dementia.
Depression/anxiety.
Continue Zoloft, Neurontin
Full code
Anticipated Discharge: Within 24 hours
Subjective/Interval History
-
Date of Service: July 11, 2025
Objective Data
-
Vital Signs:
Vital Signs
Temp Pulse Resp BP Pulse Ox
98.1 F 58 14 146/124 97
07/11/25 07:47 07/11/25 10:00 07/11/25 10:00 07/11/25 10:00 07/11/25 10:01
I&O
07/10/25 07/11/25 07/12/25
06:59 06:59 06:59
Intake Total 300 / 300 120 / 120
Output Total 1300 / 1300 1300 / 1300 580 / 580
Balance -1000 / -1000 -1300 / -1300 -460 / -460
Physical Exam
-
General: No Apparent Distress
Respiratory: Clear to Auscultation
Cardiac: Regular Rhythm
GI: Soft and Nontender
Musculoskeletal: No Clubbing and No Cyanosis
Skin: Warm and Dry
Neuro: Awake and Alert
Psych: Calm
[2025-07-11] MEDS: LANOXIN 125 MCG PO (11:35)
[2025-07-11] MEDS: MIRALAX 17 GRAMS PO (12:31)
--- NOTE | 2025-07-11 13:39 | W.DCSUMMARY ---
Discharge Summary
Discharge Data
Date of Admission: 07/06/25
Date of Discharge: 07/11/25
-
Pending Results: No
Hospital Course
Impression
Presentation with multiple syncope and tachycardia.
Saddle pulmonary embolus.
Right lower lobe opacification with concern for pulmonary infarct/pleural effusion
Acute on chronic anemia
Conditions prior to admission
Recent hospitalization for acute diverticulitis: Discharged 06/27/2025
Left fibula fracture, mechanical status post fall
Paroxysmal atrial fibrillation
Chronic CHF preserved EF
CAD
Essential hypertension
Dyslipidemia
Advanced dementia unspecified type
Imaging
CT scan of the chest
IMPRESSION:
1. Saddle pulmonary embolus extending from the distal main pulmonary artery into the right and left pulmonary arteries as well as the lobar and segmental pulmonary arteries bilaterally. There are findings of right heart strain with an RV LV ratio of
1.75.
2. Within the posterior right lower lobe there are nodular and groundglass opacities as well as a small effusion. This is felt to most likely represent pulmonary infarction/hemorrhage in the setting of extensive pulmonary embolus. Infection is
considered less likely. Malignancy cannot be excluded. A follow-up is recommended to ensure resolution.
Echo
1. Ejection fraction is greater than 75% by visual assessment.
2. Left ventricular cavity size is 2.90 cm which is small in size.
3. Right ventricular cavity size is severely dilated.
4. Right ventricular systolic function is moderately to severely decreased.
5. Mild tricuspid regurgitation. Estimated pulmonary artery pressure of 35 mmHg assuming a right atrial pressure of 3 mmHg.
6. Compared to a prior transthoracic echocardiogram study from 05/30/2024, the right ventricle is now severely dilated with significantly reduced systolic function.
Plan
Presentation with multiple syncopal episodes at the nursing facility, sinus tachycardia.
CT scan of the chest as above
Saddle submassive PE
Risk factors including limited mobility, recent left lower extremity trauma.
Recently on anticoagulation with Eliquis for atrial fibrillation with (discharged on 06/27/2025), reportedly interrupted at the nursing facility for fall risk.
Initially discussed as a PERT alert with decision to proceed with IV anticoagulation alone.
While on IV heparin, remains in stable respiratory status, although with marginal/soft blood pressure and tachycardic.
Follow-up echo as above.
Lower extremity Doppler shows thrombus in the left femoral, popliteal, and posterior tibial veins
Status post mechanical thrombectomy 07/07 with large clot removed from right pulmonary artery with subsequent improvement in PA pressures and parenchymal perfusion
Transition to Eliquis loading dose to continue through 07/15, start Eliquis 5 mg twice daily 07/16
- Medically stable for discharge, case management made aware, arrangements pending
Right lower lobe opacification
Differential diagnosis pulmonary infarct, hemorrhage plus minus pleural effusion.
Noted with drop in hemoglobin from 16-12, which seems to be aberrant possibly erroneous, hemoglobin now stable at 15
Hemoglobin remains stable while on anticoagulation.
Cardiovascular including:
� CAD.
� Chronic CHF preserved EF.
� Paroxysmal atrial fibrillation.
Continue metoprolol with caution for hypotension.
Resume digoxin (level on admission 0.6)
Continue statin
Dementia.
Depression/anxiety.
Continue Zoloft, Neurontin
Discharge Plan
-
Patient Disposition: Alf/SNF
Discharge Diagnosis/Procedures: Submassive pulmonary embolism
Lower extremity DVT
Condition: Good
Diet: Regular
Activity Restrictions/Additional Instructions:
Wound Care Instructions Scrotum- Apply Calazime PRN to open areas
Buttocks apply Desenex powder and Calazime to fungal appearing skin and MASD on buttocks BID and PRN
Referrals:
Darleen Cleary, DO [Active, Pulmonary Medicine] - in two to four weeks
Fletcher Del Cid MD [Family Provider, Family Practice]
Prescriptions:
New
Eliquis 5 mg Tablet
10 mg PO BID Qty: 60 0RF
Rx Instructions:
through 12/27/25, reduce dose to 5 mg BID starting 07/16/25
Continued
rosuvastatin 20 MG tablet
20 mg PO HS
sertraline 50 MG tablet
50 mg PO DAILY
ezetimibe 10 MG tablet
10 mg PO DAILY
triamcinolone acetonide 0.1 % Cream
1 applic TOPICAL BID Qty: 0
Rx Instructions:
apply to leg rash
multivitamin Tablet
1 tab PO DAILY
metoprolol succinate 100 mg Tablet Extended Release 24 Hr
100 mg PO DAILY
acetaminophen [Acetaminophen Extra Strength] 500 mg tablet
1,000 mg PO Q6H
potassium chloride 20 mEq tablet,ER particles/crystals
20 meq PO DAILY
omeprazole 40 mg Capsule,Delayed Release(Dr/Ec)
40 mg PO DAILY
gabapentin 300 mg Capsule
300 mg PO HS
Saccharomyces boulardii 250 mg Capsule
250 mg PO BID
Metamucil 3.4 gram/5.4 gram Powder
1 tbsp PO DAILY
digoxin 125 mcg (0.125 mg) tablet
125 mcg PO NOON
Changed
furosemide 40 mg Tablet
80 mg PO DAILY PRN (Reason: Fluid Retention/Swelling) Qty: 0 0RF
Rx Instructions:
for weight gain over 2 LB
Discontinued
aspirin 81 mg Tablet
81 mg PO DAILY
nystatin 100,000 unit/gram powder
TOPICAL DAILY
Discharge Orders:
Discharge Patient (As Directed); Ordered 07/11/25
Ordered By: Cricket Kearney
Discharge Date and Time
Print Language: IRISH
--- NOTE | 2025-07-11 13:56 | PTCARENOTE ---
received pt at 0700. yadira aaox1; reoriented to time and place. pt with stable vitals. remains on RA. tolerated breakfast without issue. pt with + BM. pt urinating without issue; male pure wick in use. pt assisted into recliner chair for lunch
by pt staff; pt tolerated well. pt due to be picked up for discharge at 1700 today. pt updated. plan of care continues to be followed.
--- NOTE | 2025-07-11 17:18 | CM ---
F/U: Patient is ready and followed up with [facility], they will accept today. IMM completed with daughter and [facility] faxed to [facility] after speaking to Dtr about most of the questions as well as reviewing the chart.
Transport arranged for 5pm.
Report: #[phone]
Fax: #[phone]
== END 2025-07-11 18:30 | DRG 164 ==
LOC: IMU 18:28
PROVIDERS: Internal Medicine; Nurse Practitioner Family; Radiology Vascular & Interventional Radiology; Registered Nurse; ADMITTING PHYSICIAN Student in an Organized Health Care Education/Training Program; ATTENDING PHYSICIAN Internal Medicine; EMERGENCY PHYSICIAN Emergency Medicine; FAMILY PHYSICIAN Family Medicine; OTHER PHYSICIAN Internal Medicine
PROC: B31T1ZZ Fluoroscopy of Left Pulmonary Artery using Low Osmolar Contrast (ICD-10-PCS; 2025-07-07)
PROC: B31S1ZZ Fluoroscopy of Right Pulmonary Artery using Low Osmolar Contrast (ICD-10-PCS; 2025-07-07)
PROC: 02CQ3ZZ Extirpation of Matter from Right Pulmonary Artery, Percutaneous Approach (ICD-10-PCS; 2025-07-07)
DX: I26.92 Saddle embolus of pulmonary artery without acute cor pulmonale (principal); E87.20 Acidosis, unspecified; F03.93 Unspecified dementia, unspecified severity, with mood disturbance; I50.32 Chronic diastolic (congestive) heart failure; I13.0 Hypertensive heart and chronic kidney disease with heart failure and stage 1 through stage 4 chronic kidney disease, or unspecified chronic kidney disease; F03.94 Unspecified dementia, unspecified severity, with anxiety; I82.412 Acute embolism and thrombosis of left femoral vein; I82.432 Acute embolism and thrombosis of left popliteal vein; I82.442 Acute embolism and thrombosis of left tibial vein; I48.0 Paroxysmal atrial fibrillation; I25.10 Atherosclerotic heart disease of native coronary artery without angina pectoris; N18.9 Chronic kidney disease, unspecified; E78.00 Pure hypercholesterolemia, unspecified; F32.A Depression, unspecified; E11.22 Type 2 diabetes mellitus with diabetic chronic kidney disease; E11.51 Type 2 diabetes mellitus with diabetic peripheral angiopathy without gangrene; F43.10 Post-traumatic stress disorder, unspecified; E04.1 Nontoxic single thyroid nodule; E11.65 Type 2 diabetes mellitus with hyperglycemia; Z96.612 Presence of left artificial shoulder joint; Z88.8 Allergy status to other drugs, medicaments and biological substances; Z79.82 Long term (current) use of aspirin; Z79.899 Other long term (current) drug therapy; K21.9 Gastro-esophageal reflux disease without esophagitis; I49.5 Sick sinus syndrome; Z95.0 Presence of cardiac pacemaker; E66.09 Other obesity due to excess calories; Z85.820 Personal history of malignant melanoma of skin; E86.9 Volume depletion, unspecified; G47.33 Obstructive sleep apnea (adult) (pediatric); Z95.5 Presence of coronary angioplasty implant and graft; Z11.52 Encounter for screening for COVID-19
CPT/HCPCS: 36014; 36620; 37184; 70450; 71275; 75743; 76937; 80048; 80053; 80162; 83036; 84484; 85014; 85018; 85025; 85027; 85730; 87502; 87811; 93005; 93288; 93306; 93970; 96361; 96374; 97116; 97163; 97167; 97530; 99285; C1769; Q9967

== ENCOUNTER → 2025-07-14 10:23 | Outpatient (REF) | payer OTHER, MEDICARE, BC, SELFPAY ==
[2025-07-14 11:38] LABS: Hematocrit 42.3 % (39.0-52.0); Hemoglobin 13.4 g/dL (13.0-18.0); Mean Corp Hgb Conc. 31.7 g/dL (33.0-37.0); Mean Corpuscular Volume 90.0 fL (80.0-94.0); Nucleated Red Blood Cells % 0 % (-); Platelet Count 222 10^3/uL (130-400); Red Cell Dist. Width 13.7 % (11.5-14.5)
[2025-07-14 11:42] LABS: Blood Urea Nitrogen 16 mg/dl (9-20); Calcium 8.9 mg/dl (8.4-10.2); Carbon Dioxide 27 mmol/L (22-30); Chloride 106 mmol/L (98-107); Glucose 90 mg/dl (70-99); Potassium 3.9 mmol/L (3.5-5.1); Sodium 136 mmol/L (135-145); eGFR > 60.00
== END ==
LOC: OLABP 10:23
PROVIDERS: ATTENDING PHYSICIAN Family Medicine
DX: I26.99 Other pulmonary embolism without acute cor pulmonale (principal); R55 Syncope and collapse; R00.0 Tachycardia, unspecified; K52.9 Noninfective gastroenteritis and colitis, unspecified; D64.9 Anemia, unspecified; I25.10 Atherosclerotic heart disease of native coronary artery without angina pectoris; E78.5 Hyperlipidemia, unspecified; F32.A Depression, unspecified; I10 Essential (primary) hypertension; I48.0 Paroxysmal atrial fibrillation; F41.9 Anxiety disorder, unspecified; E66.01 Morbid (severe) obesity due to excess calories; F03.90 Unspecified dementia, unspecified severity, without behavioral disturbance, psychotic disturbance, mood disturbance, and anxiety
CPT/HCPCS: 36415; 80048; 85025